=== PATIENT | female | born 1940 | race Caucasian/White ===

== ENCOUNTER 2017-04-23 09:15 | Inpatient (IN) | payer OTHER ==
[2017-04-22 10:33] VITALS: BMI 37.5
[2017-04-23] MEDS ORDERED: ceFAZolin SODIUM 1 GM VIAL ONE (10:27)
[2017-04-23] MEDS ORDERED: HEPARIN NA (PORCINE) 5,000 UNITS/ML 1ML VIAL ONE (10:28)
[2017-04-23] MEDS ORDERED: ROCURONIUM BROMIDE 50 MG/5 ML VIAL ONE (12:11)
[2017-04-23] MEDS ORDERED: fentaNYL CITRATE 250 MCG/5 ML VIAL ONE (12:11)
[2017-04-23] MEDS ORDERED: MIDAZOLAM HCL 2 MG/2 ML SINGLE DOSE VIAL ONE (12:11)
[2017-04-23] MEDS ORDERED: PROPOFOL 20 ML ONE (12:11)
[2017-04-23] MEDS ORDERED: LIDOCAINE HCL 1%, 10 MG/ML (20ML VIAL) ONE (12:47)
[2017-04-23] MEDS ORDERED: BUPIVACAINE HCL/PF 0.5% (5MG/ML) 10 ML VIAL ONE (12:48)
[2017-04-23] MEDS ORDERED: ePHEDrine SULFATE 50 MG/1 ML AMPULE ONE (13:15)
[2017-04-23] MEDS ORDERED: ceFAZolin SODIUM 1 GM VIAL IVPB ONE (13:15)
[2017-04-23] MEDS ORDERED: DEXAMETHASONE SOD PHOSPHATE 4 MG/1 ML VIAL ONE (13:18)
[2017-04-23] MEDS ORDERED: BUPIVACAINE HCL/PF 0.5% (5MG/ML) 10 ML VIAL IJ ONE (15:13)
[2017-04-23] MEDS ORDERED: LIDOCAINE HCL 1%, 10 MG/ML (20ML VIAL) INF ONE (15:13)
[2017-04-23] MEDS ORDERED: ONDANSETRON 4 MG/2 ML VIAL IVPUSH PRN ×2 (15:41)
[2017-04-23] MEDS ORDERED: HYDROmorphone *PCA* 10MG/50ML DISP.SYRIN PCA ONE (15:44)
--- NOTE | 2017-04-23 15:47 | OP ---
Operative Note - Note: Operative Date: 04/23/17 Pre-Operative Diagnosis: right lung mass Operation: robotic right middle lobe wedge resection, apical rul wedge resection Findings: rml lesion caseating granuloma Post-Operative Diagnosis: Other (caseating granuloma) Surgeon: Scot Jiménez Concreting Supervisor: Valdemar Moon Anesthesia: General Specimens Removed: portion rml, rul Estimated Blood Loss (mls): 75 Drains & Tubes with Location: chest tube Operative Report Dictated: No
[2017-04-23] MEDS: HYDROmorphone *PCA* 10MG/50ML DISP.SYRIN PCA SCH (16:05)
--- NOTE | 2017-04-23 16:06 | CONSULT ---
Consult Consult Specialty:: medicine Referred by:: dr Chavis Reason for Consultation:: s/p RML wedge resection, h/o HTN ASHD OA DJD - History of Present Illness Chief Complaint: s/p RML wedge resection for lung mass History of Present Illness: 76 y/o F with PMH HTN, depression, GERD, thyroid nodules x 2, arthritis, degenerative disc dz, former smoker, who presents to ICU s/p robotic right middle lobe wedge resection, apical rul wedge resection for R lung mass. Surgery done by . PMH: HTN, depression, GERD, thyroid nodules x2, arthritis, degenerative disc dz , scoliosis PsxH: R carpal tunnel release, R trigger finger, L knee surgery, R breast- cyst removal x2 meds: as in chart allergies: NKDA, NKA FH: mother: ovarian CA, father: alcoholic SH: former smoker, quit ~20 yrs ago pt seen in postop s/p dilaudid for pain, awake alert NAD but sleepy chart, meds, tests, consults reviewed - History Source History Provided By: Patient, Medical Record Limitations to Obtaining History: Clinical Condition - Past Medical History Cardio/Vascular: Yes: HTN, Hyperlipdemia Pulmonary: Yes: COPD Musculoskeletal: Yes: Chronic low back pain, Osteoarthritis - Alcohol/Substance Use Hx Alcohol Use: No History of Substance Use: reports: None - Smoking History Smoking history: Former smoker Have you smoked in the past 12 months: No Aproximately how many cigarettes per day: 0 If you are a former smoker, when did you quit?: 23YRS AGO - Social History Usual Living Arrangement: Alone ADL: Independent Occupation: retired Place of : [facility] History of Recent Travel: No Home Medications - Allergies Allergies/Adverse Reactions: Allergies Allergy/AdvReac Type Severity Reaction Status Date / Time No Known Allergies Allergy Verified 04/22/17 10:42 - Home Medications Home Medications: Ambulatory Orders Alprazolam [Xanax] 0.25 mg PO DAILY 04/22/17 Amlodipine Besylate 10 mg PO DAILY 04/22/17 Ascorbate Calcium [Vitamin C] 500 mg PO DAILY 04/22/17 Atenolol [Tenormin -] 100 mg PO DAILY 04/22/17 Multivitamin [One Daily] 1 each PO DAILY 04/22/17 Naproxen Sodium [Aleve] 220 mg PO PRN PRN 04/22/17 Omeprazole [Prilosec (RX)] 40 mg PO DAILY 04/22/17 Pravastatin Sodium [Pravachol -] 80 mg PO DAILY 04/23/17 Sertraline HCl [Zoloft -] 25 mg PO DAILY 04/23/17 Family Disease History - Family Disease History Family History: Unremarkable Review of Systems - Review of Systems Constitutional: denies: Chills, Fever, Lethargy HENT: denies: Epistaxis Neck: denies: Lumps, Stiffness Cardiovascular: reports: Chest Pain (at the site of surgery). denies: Edema, Shortness of Breath Respiratory: denies: Cough, SOB Gastrointestinal: denies: Constipation, Diarrhea, Vomiting Genitourinary: denies: Hematuria Musculoskeletal: reports: Back Pain (chronic) Integumentary: denies: Rash, Wound Neurological: denies: Seizure, Syncope Hematology/Lymphatic: denies: Excessive Bleeding Psychiatric: denies: Suicidal Physical Exam Vital Signs: Vital Signs Temperature 98.2 F 04/23/17 10:58 Pulse Rate 69 04/23/17 10:58 Respiratory Rate 18 04/23/17 10:58 Blood Pressure 182/80 04/23/17 10:58 O2 Sat by Pulse Oximetry (%) 97 04/23/17 10:54 Constitutional: Yes: No Distress, Calm Eyes: Yes: Conjunctiva Clear HENT: Yes: Atraumatic Neck: Yes: Supple Cardiovascular: Yes: Regular Rate and Rhythm Respiratory: Yes: CTA Bilaterally, Other (R chest tube in with some bloody drainage) Gastrointestinal: Yes: Soft. No: Tenderness Renal/: No: Hematuria Musculoskeletal: No: Joint Stiffness, Joint Swelling Extremities: No: Cold, Cool, Cyanosis Edema: No Integumentary: No: Rash, Venous Stasis Changes Neurological: Yes: Alert ...Motor Strength: WNL (moves U/LE bilat) Psychiatric: Yes: Alert. No: Agitated Imaging - Results Chest X-ray: Report Reviewed Other: Report Reviewed Assessment/Plan 76 y/o F with PMH HTN, depression, GERD, thyroid nodules x 2, arthritis, degenerative disc dz, former smoker, s/p robotic right middle lobe wedge resection, apical rul wedge resection for R lung mass. Surgery done by Dr. Chavis PMH: HTN, depression, GERD, thyroid nodules x2, arthritis, degenerative disc dz , scoliosis PsxH: R carpal tunnel release, R trigger finger, L knee surgery, R breast- cyst removal x2 continue meds as ordered pain meds prn CT surgery f/u; T chest tube drainage f/u labs and CXR falls DVT PFX d/w pt and staff t time 75 min
[2017-04-23] MEDS: HYDROmorphone HCL CARPU-JECT 1 MG/1 ML DISP.SYRIN IVPUSH PRN ×2 (16:25→16:35)
[2017-04-23] MEDS ORDERED: HYDROmorphone HCL CARPU-JECT 2 MG/1 ML DISP.SYRIN ONE (16:25)
[2017-04-23] MEDS: METOPROLOL TARTRATE 5 MG/5 ML VIAL IVPUSH SCH ×3 (17:00→21:39)
[2017-04-23] MEDS ORDERED: METOPROLOL TARTRATE 5 MG/5 ML VIAL ONE (17:03)
[2017-04-23] MEDS: LACTATED RINGERS SOLUTION 1,000 ML IV SCH ×2 (17:17→18:15)
--- NOTE | 2017-04-23 18:49 | PN ---
Progress Note (short form) - Note Progress Note: 76 y/o F with PMH HTN, depression, GERD, thyroid nodules x 2, arthritis, degenerative disc dz, former smoker, who presents to ICU s/p robotic right middle lobe wedge resection, apical rul wedge resection for R lung mass. Today is PO Day 0. Surgery done by Dr. oMon. PMH: HTN, depression, GERD, thyroid nodules x2, arthritis, degenerative disc dz , scoliosis PsxH: R carpal tunnel release, R trigger finger, L knee surgery, R breast- cyst removal x2 meds: as in chart allergies: NKDA, NKA FH: mother: ovarian CA, father: alcoholic SH: former smoker, quit ~20 yrs ago s/p robotic right middle lobe wedge resection, apical rul wedge resection for R lung mass PO Day 0 -R sided chest tube, check drainage- no suction, only gravity -On dilaudid COIN MACHINE SERVICER REPAIRER for pain -Zofran 4mg IVP q6h PRN for nausea HTN -Currently 168/80, most likely 2/2 pain -Lopressor 5mg IVP q6H IV Depression -Sertraline 25mg PO qd to be restarted tomorrow GERD -Omeprazole 40mg PO qd DVT prophylaxis -SCD's, ALBERTO's F/E/N IV LR 75 cc/hr Will monitor electrolytes Clear liquid diet Disposition Continued ICU monitoring
--- NOTE | 2017-04-23 21:18 | CONSULT ---
Consult Consult Specialty:: Pulmonary Critical Care Reason for Consultation:: s/p robotic R middle lobe wedge resection and apical RUL wedge resection - History of Present Illness History of Present Illness: 76 yo female with h/o HTN, depression, GERD, thyroid nodules, former smoker who is admitted to the ICU after a robotic right middle lobe wedge resection, apical RUL wedge resection. Admitted for post op monitoring. Active Medications Chlorhexidine Gluconate (Hibiclens For Decolonization -) 1 applic TP HS BERTA Heparin Sodium (Porcine) (Heparin -) 5,000 unit SQ BID BERTA Hydromorphone HCl (Dilaudid City Recorder -) 0 mg CREDIT CONTROL ASSISTANT CREDIT CONTROL ASSISTANT BERTA PRN Reason: Protocol Stop: 04/30/17 15:42 Last Admin: 04/23/17 16:05 Dose: 10 mg Lactated Ringer's (Lactated Ringers Solution) 1,000 mls @ 75 mls/hr IV ASDIR BERTA Last Admin: 04/23/17 18:15 Dose: Not Given Metoprolol Tartrate (Lopressor Injection -) 5 mg IVPUSH Q6H-IV BERTA Last Admin: 04/23/17 18:15 Dose: Not Given Mupirocin (Bactroban Ointment (For Decolonization) -) 1 applic NS BID [facility] Stop: 04/28/17 21:59 Non-Formulary Medication (Omeprazole Pediatric Solution) 40 mg PO DAILY [facility] Ondansetron HCl (Zofran Injection) 4 mg IVPUSH Q6H PRN PRN Reason: NAUSEA AND/OR VOMITING Sertraline HCl (Zoloft -) 25 mg PO DAILY [facility] - Alcohol/Substance Use Hx Alcohol Use: No - Smoking History Smoking history: Former smoker Have you smoked in the past 12 months: No Aproximately how many cigarettes per day: 0 If you are a former smoker, when did you quit?: 23YRS AGO Home Medications - Allergies Allergies/Adverse Reactions: Allergies Allergy/AdvReac Type Severity Reaction Status Date / Time No Known Allergies Allergy Verified 04/22/17 10:42 - Home Medications Home Medications: Ambulatory Orders Alprazolam [Xanax] 0.25 mg PO DAILY 04/22/17 Amlodipine Besylate 10 mg PO DAILY 04/22/17 Ascorbate Calcium [Vitamin C] 500 mg PO DAILY 04/22/17 Atenolol [Tenormin -] 100 mg PO DAILY 04/22/17 Multivitamin [One Daily] 1 each PO DAILY 04/22/17 Naproxen Sodium [Aleve] 220 mg PO PRN PRN 04/22/17 Omeprazole [Prilosec (RX)] 40 mg PO DAILY 04/22/17 Pravastatin Sodium [Pravachol -] 80 mg PO DAILY 04/23/17 Sertraline HCl [Zoloft -] 25 mg PO DAILY 04/23/17 Physical Exam Vital Signs: Vital Signs Temperature 98.1 F 04/23/17 18:15 Pulse Rate 76 04/23/17 20:05 Respiratory Rate 18 04/23/17 20:05 Blood Pressure 149/80 04/23/17 20:05 O2 Sat by Pulse Oximetry (%) 98 04/23/17 20:36 Constitutional: Yes: Well Nourished, No Distress Cardiovascular: Yes: Regular Rate and Rhythm Respiratory: Yes: CTA Bilaterally, Other (R chest tube with dressing intact, to gravity) Gastrointestinal: Yes: Soft Extremities: Yes: WNL Edema: No Neurological: Yes: WNL Assessment/Plan Robotic R middle lobe wedge resection and apical RUL wedge resection Hypertension -pain management with dilaudid CREDIT CONTROL ASSISTANT -antiemetics prn -chest tube to gravity -metoprolol for BP -heparin SubQ -omeprazole -clear liquid diet [facility] time: 35 mins
[2017-04-23] MEDS ORDERED: HYDROmorphone HCL CARPU-JECT 2 MG/1 ML DISP.SYRIN IVPUSH ONE (21:25)
[2017-04-24] MEDS: METOPROLOL TARTRATE 5 MG/5 ML VIAL IVPUSH SCH (03:34)
[2017-04-24 06:18] LABS: MCH 30.5 pg (25.7-33.7); MEAN CELL VOLUME 89.8 fl (80-96); MEAN PLT VOLUME 8.1 fl (7.5-11.1); PLATELET COUNT 280 K/MM3 (134-434); RDW 13.4 % (11.6-15.6); WHITE BLOOD COUNT 10.1 K/mm3 (4.0-10.0)
[2017-04-24] MEDS: LACTATED RINGERS SOLUTION 1,000 ML IV SCH ×2 (06:47→23:17)
[2017-04-24 06:53] LABS: ALBUMIN 3.4 g/dl (3.4-5.0); ANION GAP 6 (8-16); CALCIUM 9.1 mg/dL (8.5-10.1); CO2 32 mmol/L (21-32); GLUCOSE,RANDOM 112 mg/dL (74-106)
[2017-04-24 06:58] LABS: ALK PHOS 73 U/L (45-117); BILIRUBIN,TOTAL 0.4 mg/dL (0.2-1.0); CREATININE 0.7 mg/dL (0.55-1.02); SGOT/AST 29 U/L (15-37); SGPT/ALT 29 U/L (12-78); TOT PROT 6.6 g/dl (6.4-8.2)
--- NOTE | 2017-04-24 07:58 | OP ---
DATE OF OPERATION: 04/23/2017 SURGEON: Scot Jiménez MD HANDLE AND VENT MACHINE OPERATOR: Valdemar Moon MD PREOPERATIVE DIAGNOSIS: Right upper and right middle lobe lung nodules. POSTOPERATIVE DIAGNOSIS: Right upper and right middle lobe lung nodules and bulla. PROCEDURE PERFORMED: Flexible bronchoscopy, robotic-assisted thoracic surgery, right middle lobe and right upper lobe wedge resection, pneumolysis, and bullectomy. ANESTHESIA: General endotracheal anesthesia/double lumen and intercostal nerve block. INTRAVENOUS FLUIDS: 750 mL of normal saline. URINE OUTPUT: 200 mL. ESTIMATED BLOOD LOSS: 5 mL. COMPLICATIONS: None. SPECIMENS: Right upper lobe and right middle lobe lung nodules. INDICATIONS: The patient is a 76-year-old female with a history of chronic tobacco use, who has been followed by primary medical doctor for lung nodules. The patient's recent CT chest showed increased size of lung nodule. Subsequently, the patient obtained a PET/CT scan, which showed hypermetabolic activity in the lung nodules. The patient is undergoing the aforementioned procedure for definitive surgical management. The risks, benefits, alternatives and potential complications including but not limited to infection, bleeding, recurrence of disease, injury to other organs, pneumothorax, prolonged air leak, sepsis, empyema, chronic pain, nerve paresthesia, cardiac events requiring vasopressors, renal failure requiring hemodialysis, respiratory failure, ventilatory support and were discussed with the patient in extensive detail and she agreed to proceed with surgical intervention. DESCRIPTION OF PROCEDURE: The patient was brought to the operating room and placed supine on the operating room table. An intravenous line was obtained per Anesthesia. The patient was induced with general endotracheal anesthesia. A single-lung ventilation was achieved with a double-lumen endotracheal tube. A flexible bronchoscopy was performed. The main zachary, right mainstem bronchus, right upper lobe, bronchus intermedius, right middle lobe, right lower lobe, segmental and subsegmental airways were patent with no endobronchial lesions or mucus plugs. The left mainstem bronchus, left upper lobe, lingula, left lower lobe, segmental and subsegmental airways were patent with no endobronchial lesions or mucus plugs. Next, the patient was placed in the left-sided decubitus position with an axillary roll. The patient's right chest was prepped and draped in the standard surgical fashion. Using a #15 blade, an 8-mm skin incision was made in the 7th intercostal space. Upon entering the right thoracic cavity, the patient was found to have a bullous disease and right middle lobe lung nodule which was adhered to the pericardium. Additional skin incisions were made for robotic instruments. The right robotic arm was situated with the bipolar dissector and the left robotic arm was situated with Cadiere grasper. A complete pneumolysis was performed in order to fully mobilize the right middle lobe. Using multiple robotic Endo-staplers, right middle lobe wedge resection and bullectomy was performed with no complication. The frozen section of the right middle lobe lung nodule showed caseating granuloma with no evidence of malignancy. Additional specimen was sent for culture workup. Next attention was turned to the right upper lobe lung nodule. In a similar manner, multiple robotic Endo-staplers were used to perform the right upper lobe wedge resection. The thoracic cavity was re-explored to achieve complete hemostasis at the end of the case. A #24-English chest tube was placed for postoperative drainage. The patient was given an intercostal nerve block prior to skin closure. All incisions were closed in layers with 2-0 and 3-0 Vicryl and 4-0 Monocryl stitches. A sterile dressing was placed over the incision and chest tube site. The patient tolerated the procedure well with no complication. The patient was awakened, extubated and transported to the recovery room in stable condition. I, Dr. Scot Jiménez, was present for the entire surgical procedure. Geno [id number] MTDD
--- NOTE | 2017-04-24 09:26 | PN ---
Progress Note (short form) - Note Progress Note: Seen and examined. no major event or c/o. no sob, skelton, cough, hemoptysis. afeb. rrr. cta b/l. ct intact, no air leak. serosang. +bs, soft, nt, nd. no c/ c/e. a&o x3. CBC, BMP 04/24/17 06:00 04/24/17 06:00 Intake & Output 04/21/17 04/22/17 04/23/17 04/24/17 23:59 23:59 23:59 23:59 Intake Total 2225 900 Output Total 1177 629 Balance 1048 271 Weight 92.986 kg 89.176 kg Vital Signs (72 hours) 04/23/17 04/23/17 04/23/17 10:54 10:58 15:29 Temperature 98.2 F 97.9 F Pulse Rate 69 79 Respiratory 18 16 Rate Blood Pressure 182/80 139/72 O2 Sat by Pulse 97 98 Oximetry (%) 04/23/17 04/23/17 04/23/17 15:45 16:00 16:05 Temperature Pulse Rate 79 79 78 Respiratory 18 18 18 Rate Blood Pressure 160/66 158/76 158/68 O2 Sat by Pulse 99 98 Oximetry (%) 04/23/17 04/23/17 04/23/17 16:15 16:30 16:35 Temperature Pulse Rate 78 74 76 Respiratory 18 18 18 Rate Blood Pressure 158/68 155/66 150/68 O2 Sat by Pulse 98 95 Oximetry (%) 04/23/17 04/23/17 04/23/17 16:45 17:00 17:05 Temperature Pulse Rate 76 75 80 Respiratory 18 18 18 Rate Blood Pressure 150/68 160/67 160/80 O2 Sat by Pulse 95 99 Oximetry (%) 04/23/17 04/23/17 04/23/17 17:15 17:30 17:45 Temperature 98.1 F Pulse Rate 80 79 78 Respiratory 18 18 18 Rate Blood Pressure 160/80 163/71 162/78 O2 Sat by Pulse 95 97 96 Oximetry (%) 04/23/17 04/23/17 04/23/17 18:00 18:05 18:15 Temperature 98.1 F 98.1 F Pulse Rate 82 80 79 Respiratory 18 22 14 Rate Blood Pressure 158/76 168/80 168/80 O2 Sat by Pulse 96 96 Oximetry (%) 04/23/17 04/23/17 04/23/17 20:00 20:05 20:36 Temperature Pulse Rate 76 76 Respiratory 20 18 Rate Blood Pressure 149/80 149/80 O2 Sat by Pulse 98 Oximetry (%) 04/23/17 04/23/17 04/23/17 21:30 21:39 22:00 Temperature 98.4 F Pulse Rate 82 85 78 Respiratory 18 14 Rate Blood Pressure 154/74 154/74 157/79 O2 Sat by Pulse Oximetry (%) 04/23/17 04/24/17 04/24/17 22:05 00:00 00:05 Temperature Pulse Rate 78 77 75 Respiratory 14 14 18 Rate Blood Pressure 154/70 137/68 137/68 O2 Sat by Pulse Oximetry (%) 04/24/17 04/24/17 04/24/17 02:00 02:05 03:34 Temperature 98.2 F Pulse Rate 76 76 Respiratory 16 16 Rate Blood Pressure 142/76 142/76 120/53 O2 Sat by Pulse Oximetry (%) 04/24/17 04/24/17 04/24/17 04:00 04:05 06:00 Temperature 98.0 F Pulse Rate 71 71 80 Respiratory 14 18 18 Rate Blood Pressure 113/50 113/50 146/73 O2 Sat by Pulse Oximetry (%) 04/24/17 04/24/17 06:05 08:00 Temperature Pulse Rate 70 84 Respiratory 18 18 Rate Blood Pressure 146/70 169/81 O2 Sat by Pulse Oximetry (%) Vital Signs Temp 98.0 F 04/24/17 04:00 Pulse 84 04/24/17 08:00 Resp 18 04/24/17 08:00 BP 169/81 04/24/17 08:00 Pulse Ox 98 04/23/17 20:36 Intake & Output 04/23/17 04/23/17 04/24/17 11:59 23:59 11:59 Intake Total 2225 900 Output Total 1177 629 Balance 1048 271 Weight 89.176 kg Intake: IV 2075 900 Lactated Ringers Solution 75 900 1,000 ml @ 75 mls/hr IV ASDIR BERTA Rx#:[id number] Oral 150 Output: Chest Tube Drainage 22 29 Right Anterior Chest 29 Urine 1150 600 Ca 600 Void 400 Estimated Blood Loss 5 Other: Voiding Method Indwelling Catheter Weight Measurement Method [facility] a/p 76 yo, f, s/p robotic-assisted rul/rml wedge resection, pneumolysis, and bullectomy. stable clinically. 1. cont excellent icu care 2. ct to ws 3. oob amb w pt, aggressive pulm toilet, chest pt, is x10/hr 4. cxr qd 5. d/w drs. schwartz.
[2017-04-24] MEDS ORDERED: amLODIPine BESYLATE 10 MG TABLET (FP) PO SCH (10:00)
[2017-04-24] MEDS ORDERED: PATIENT'S OWN MEDICATION (NON-FORMULARY) (Atenolol [Tenormin -] 100 MG) PO SCH (10:00)
--- NOTE | 2017-04-24 10:07 | PN ---
Progress Note (short form) - Note Progress Note: Anesthesia POD#1 Right Robotic VATS wedge resection under GA and Dlaudid CONFIGURATION MANAGEMENT MANAGER VSS, tolerating well,feels pain on movement.No N/V. A/P Continue CONFIGURATION MANAGEMENT MANAGER for today. Will reasess tomorrow. Anastasia martinez MD.
[2017-04-24] MEDS: MULTIVITAMINS (DAILY MVI) TABLET (FP) PO SCH (10:30)
[2017-04-24] MEDS: HEPARIN NA (PORCINE) 5,000 UNITS/ML 1ML VIAL SQ SCH ×2 (10:30→23:21)
[2017-04-24] MEDS: ALPRAZolam 0.25 MG TABLET PO SCH (10:31)
[2017-04-24] MEDS: SERTRALINE HCL 25 MG TABLET (FP) PO SCH (10:31)
[2017-04-24] MEDS: amLODIPine BESYLATE 10 MG TABLET (FP) PO SCH (10:31)
[2017-04-24] MEDS: ASCORBIC ACID 500 MG TABLET (FP) PO SCH (10:31)
[2017-04-24] MEDS: PANTOPRAZOLE 40 MG TABLET (FP) PO SCH (10:31)
[2017-04-24] MEDS: ATENOLOL 50 MG TABLET (FP) PO SCH (10:31)
[2017-04-24] MEDS: MUPIROCIN 2% TOPICAL OINTMENT FOR DECOLONIZATION NS SCH ×3 (10:32→23:20)
--- NOTE | 2017-04-24 11:53 | PN ---
Progress Note, Physician Chief Complaint: PO day 1 in bed NAD in ICU; CT in events consults tests and meds reviewed with pt in good spirits no pain no SOB no bleed - Current Medication List Current Medications: Active Medications Alprazolam (Xanax -) 0.25 mg PO DAILY [facility] Last Admin: 04/24/17 10:31 Dose: 0.25 mg Amlodipine Besylate (Norvasc -) 10 mg PO DAILY [facility] Last Admin: 04/24/17 10:31 Dose: 10 mg Ascorbic Acid (Vitamin C -) 500 mg PO DAILY [facility] Last Admin: 04/24/17 10:31 Dose: 500 mg Atenolol (Tenormin -) 100 mg PO DAILY [facility] Last Admin: 04/24/17 10:31 Dose: 100 mg Atorvastatin Calcium (Lipitor -) 20 mg PO [facility] Chlorhexidine Gluconate (Hibiclens For Decolonization -) 1 applic TP HS [facility] Last Admin: 04/24/17 00:00 Dose: 1 applic Heparin Sodium (Porcine) (Heparin -) 5,000 unit SQ BID [facility] Last Admin: 04/24/17 10:30 Dose: 5,000 unit Hydromorphone HCl (Dilaudid 911 Emergency Dispatcher -) 0 mg SANITATION MANAGER SANITATION MANAGER [facility] PRN Reason: Protocol Stop: 04/30/17 15:42 Last Admin: 04/23/17 16:05 Dose: 10 mg Lactated Ringer's (Lactated Ringers Solution) 1,000 mls @ 75 mls/hr IV ASDIR [facility] Last Admin: 04/24/17 06:47 Dose: 75 mls/hr Multivitamins/Minerals/Vitamin C (Tab-A-Vit -) 1 tab PO DAILY [facility] Last Admin: 04/24/17 10:30 Dose: 1 tab Mupirocin (Bactroban Ointment (For Decolonization) -) 1 applic NS BID [facility] Stop: 04/28/17 21:59 Last Admin: 04/24/17 10:32 Dose: 1 applic Ondansetron HCl (Zofran Injection) 4 mg IVPUSH Q6H PRN PRN Reason: NAUSEA AND/OR VOMITING Pantoprazole Sodium (Protonix -) 40 mg PO DAILY [facility] Last Admin: 04/24/17 10:31 Dose: 40 mg Sertraline HCl (Zoloft -) 25 mg PO DAILY [facility] Last Admin: 04/24/17 10:31 Dose: 25 mg - Objective Vital Signs: Vital Signs Temperature 98.1 F 04/24/17 10:00 Pulse Rate 84 04/24/17 10:05 Respiratory Rate 15 04/24/17 10:05 Blood Pressure 143/58 04/24/17 10:05 O2 Sat by Pulse Oximetry (%) 98 04/24/17 09:00 Constitutional: Yes: No Distress, Calm Eyes: Yes: Conjunctiva Clear HENT: Yes: Atraumatic Neck: Yes: Supple Cardiovascular: Yes: Regular Rate and Rhythm Respiratory: Yes: CTA Bilaterally Gastrointestinal: Yes: Soft. No: Distention, Tenderness Genitourinary: No: CVA Tenderness - Left, CVA Tenderness - Right Musculoskeletal: No: Joint Stiffness, Joint Swelling Extremities: No: Cold, Cool, Cyanosis Edema: No Integumentary: No: Rash, Venous Stasis Changes Neurological: Yes: WNL, Alert, Oriented ...Motor Strength: WNL Psychiatric: Yes: WNL, Alert, Oriented. No: Agitated, Suicidal Ideation Labs: CBC, BMP 04/24/17 06:00 04/24/17 06:00 - ....Imaging Other: Report Reviewed Assessment/Plan 76 y/o F with PMH HTN, depression, GERD, thyroid nodules x 2, arthritis, degenerative disc dz, former smoker, s/p robotic right middle lobe wedge resection, apical rul wedge resection for R lung mass. Surgery done by Dr. Chavis PMH: HTN, depression, GERD, thyroid nodules x2, arthritis, degenerative disc dz , scoliosis PsxH: R carpal tunnel release, R trigger finger, L knee surgery, R breast- cyst removal x2 continue meds as ordered pain meds prn CT surgery f/u; T chest tube drainage f/u labs and CXR falls DVT PFX d/w pt and staff t time 40 min
--- NOTE | 2017-04-24 12:50 | PN ---
Teaching Attending Note Name of Resident: Millie Miguel ATTENDING PHYSICIAN STATEMENT I saw and evaluated the patient. I reviewed the resident's note and discussed the case with the resident. I agree with the resident's findings and plan as documented. SUBJECTIVE: Pt seen and examined in the ICU. Pain adequately controlled with current dilaudid CENTRALIZED TRAFFIC CONTROL OPERATOR. Denies shortness of breath. No fevers or chills. Chest tube to water seal. OBJECTIVE: Last Vital Signs Temp Pulse Resp BP Pulse Ox 98.1 F 88 18 129/78 98 04/24/17 10:00 04/24/17 12:00 04/24/17 12:00 04/24/17 12:00 04/24/17 09:00 Intake & Output 04/21/17 04/22/17 04/23/17 04/24/17 23:59 23:59 23:59 23:59 Intake Total 2225 900 Output Total 1177 629 Balance 1048 271 Weight 205 lb 196 lb 9.6 oz Gen: NAD at rest Heart: RRR Lung: decreased breath sounds at the bases Abd: soft, nontender Ext: no edema Chest tube: no air leak, minimal drainage CBC, BMP 04/24/17 06:00 04/24/17 06:00 Active Medications Alprazolam (Xanax -) 0.25 mg PO DAILY [facility] Last Admin: 04/24/17 10:31 Dose: 0.25 mg Amlodipine Besylate (Norvasc -) 10 mg PO DAILY [facility] Last Admin: 04/24/17 10:31 Dose: 10 mg Ascorbic Acid (Vitamin C -) 500 mg PO DAILY [facility] Last Admin: 04/24/17 10:31 Dose: 500 mg Atenolol (Tenormin -) 100 mg PO DAILY [facility] Last Admin: 04/24/17 10:31 Dose: 100 mg Atorvastatin Calcium (Lipitor -) 20 mg PO [facility] Chlorhexidine Gluconate (Hibiclens For Decolonization -) 1 applic TP HS [facility] Last Admin: 04/24/17 00:00 Dose: 1 applic Heparin Sodium (Porcine) (Heparin -) 5,000 unit SQ BID [facility] Last Admin: 04/24/17 10:30 Dose: 5,000 unit Hydromorphone HCl (Dilaudid Drier Transfer Car Operator -) 0 mg CENTRALIZED TRAFFIC CONTROL OPERATOR CENTRALIZED TRAFFIC CONTROL OPERATOR [facility] PRN Reason: Protocol Stop: 04/30/17 15:42 Last Admin: 04/23/17 16:05 Dose: 10 mg Lactated Ringer's (Lactated Ringers Solution) 1,000 mls @ 75 mls/hr IV ASDIR [facility] Last Admin: 04/24/17 06:47 Dose: 75 mls/hr Multivitamins/Minerals/Vitamin C (Tab-A-Vit -) 1 tab PO DAILY [facility] Last Admin: 04/24/17 10:30 Dose: 1 tab Mupirocin (Bactroban Ointment (For Decolonization) -) 1 applic NS BID [facility] Stop: 04/28/17 21:59 Last Admin: 04/24/17 10:32 Dose: 1 applic Ondansetron HCl (Zofran Injection) 4 mg IVPUSH Q6H PRN PRN Reason: NAUSEA AND/OR VOMITING Pantoprazole Sodium (Protonix -) 40 mg PO DAILY [facility] Last Admin: 04/24/17 10:31 Dose: 40 mg Sertraline HCl (Zoloft -) 25 mg PO DAILY [facility] Last Admin: 04/24/17 10:31 Dose: 25 mg ASSESSMENT AND PLAN: Lung Nodules s/p Robotic RML/RUL wedge resections HTN Hypercholesterolemia Depression - pain control - incentive spirometry - d/c best - PO as tolerated - d/c IVF if tolerating PO - f/u final pathology - DVT prophylaxis
--- NOTE | 2017-04-24 13:12 | PN ---
Physical Exam: SUBJECTIVE: Patient seen and examined Patient resting in bed NAD. Afebrile and hemodynamically stable. No acute events overnight. R chest tube draining 55 cc serosanguineous fluid, no air leak. pain well controlled with FISHERIES TECHNICAL OFFICER pump. Endorses R sided rib pain and R sided pleuritic pain. Denies sob, cough, f/c, cp, palpitations, abd pain, n/v/d. OBJECTIVE: Vital Signs Period Temp Pulse Resp BP Sys/Jennings Pulse Ox Last 24 Hr 97.9 F-98.4 F 70-88 13-22 113-169/50-81 95-99 GENERAL: The patient is awake, alert, and fully oriented, in no acute distress. HEAD: Normal with no signs of trauma. EYES: PERRL, extraocular movements intact, sclera anicteric, conjunctiva clear. No ptosis. ENT: moist mucous membranes. NECK: supple. LUNGS: R middle lobe crackles HEART: Regular rate and rhythm, S1, S2 Chest wall: R chest tube in place, dressing with sero sanguineous staining. no edema or redness. ABDOMEN: Soft, nontender, nondistended, normoactive bowel sounds, no guarding, no rebound EXTREMITIES: 2+ pulses, warm, well-perfused, no edema. NEUROLOGICAL: Cranial nerves II through XII grossly intact. Normal speech, gait not observed. PSYCH: Normal mood, normal affect. SKIN: Warm, dry Laboratory Results - last 24 hr 04/23/17 04/23/17 04/24/17 10:00 10:00 06:00 WBC 10.1 H D RBC 3.87 Hgb 11.8 Hct 34.7 MCV 89.8 MCH 30.5 MCHC 34.0 RDW 13.4 Plt Count 280 MPV 8.1 Sodium Potassium Chloride Carbon Dioxide Anion Gap BUN Creatinine Creat Clearance w eGFR Random Glucose Calcium Total Bilirubin AST ALT Alkaline Phosphatase Total Protein Albumin Blood Type Cancelled Cancelled Antibody Screen Cancelled Spec Expiration Date Cancelled 04/24/17 06:00 WBC RBC Hgb Hct MCV MCH MCHC RDW Plt Count MPV Sodium 137 Potassium 4.8 D Chloride 99 Carbon Dioxide 32 Anion Gap 6 L BUN 12 D Creatinine 0.7 Creat Clearance w eGFR > 60 Random Glucose 112 H Calcium 9.1 Total Bilirubin 0.4 D AST 29 ALT 29 Alkaline Phosphatase 73 Total Protein 6.6 Albumin 3.4 Blood Type Antibody Screen Spec Expiration Date Active Medications Generic Name Dose Route Start Last Admin Trade Name Freq PRN Reason Stop Dose Admin Alprazolam 0.25 mg 04/24/17 10:00 04/24/17 10:31 Xanax - PO 0.25 mg DAILY BERTA Administration Amlodipine Besylate 10 mg 04/24/17 10:00 04/24/17 10:31 Norvasc - PO 10 mg DAILY BERTA Administration Ascorbic Acid 500 mg 04/24/17 10:00 04/24/17 10:31 Vitamin C - PO 500 mg DAILY BERTA Administration Atenolol 100 mg 04/24/17 10:00 04/24/17 10:31 Tenormin - PO 100 mg DAILY BERTA Administration Atorvastatin Calcium 20 mg 04/24/17 22:00 Lipitor - PO HS BERTA Chlorhexidine Gluconate 1 applic 04/23/17 22:00 04/24/17 00:00 Hibiclens For Decolonization - TP 1 applic HS BERTA Administration Heparin Sodium (Porcine) 5,000 unit 04/24/17 10:00 04/24/17 10:30 Heparin - SQ 5,000 unit BID BERTA Administration Hydromorphone HCl 0 mg 04/23/17 15:45 04/23/17 16:05 Dilaudid Paste Mixer - FISH[employer] TECHNICAL OFFICER 04/30/17 15:42 10 mg [employer] OFFICER BERTA Administration Protocol Lactated Ringer's 1,000 mls @ 75 mls/hr 04/23/17 15:45 04/24/17 06:47 Lactated Ringers Solution IV 75 mls/hr ASDIR BERTA Administration Multivitamins/Minerals/Vitamin C 1 tab 04/24/17 10:00 04/24/17 10:30 Tab-A-Vit - PO 1 tab DAILY BERTA Administration Mupirocin 1 applic 04/23/17 22:00 04/24/17 10:32 Bactroban Ointment (For Decolonization) - NS 04/28/17 21:59 1 applic BID BERTA Administration Ondansetron HCl 4 mg 04/23/17 15:41 Zofran Injection IVPUSH Q6H PRN NAUSEA AND/OR VOMITING Pantoprazole Sodium 40 mg 04/24/17 10:00 04/24/17 10:31 Protonix - PO 40 mg DAILY BERTA Administration Sertraline HCl 25 mg 04/24/17 10:00 11/29/17 10:31 Zoloft - PO 25 mg DAILY BERTA Administration ASSESSMENT/PLAN: This is a 76 yo F with PMH of lung nodules, past smoker, HTN, depression, GERD, thyroid nodules, admitted to the ICU s/p robotic right middle lobe wedge resection, apical RUL wedge resection. Neuro -aaox3 CV *HTN *HLD -lipitor 20, norvasc 10 Pulm: POD1 s/p robotic right middle lobe wedge resection, apical RUL wedge resection -frozen sections so far negative for oncology; f/u final path report -R chest tube in place to gravity with minimal sero sanguineous output and no air leak; pull tomorrow -CXR R apical small pneumo persists -pain management with collections manager pump -remove best FEN: LR @ 75 lytes stable NA controlled diet hep, diet Dispo: ICU Problem List - Problems (1) Lung nodule Code(s): R91.1 - SOLITARY PULMONARY NODULE (3) HTN (hypertension) Code(s): I10 - ESSENTIAL (PRIMARY) HYPERTENSION (4) HLD (hyperlipidemia) Code(s): E78.5 - HYPERLIPIDEMIA, UNSPECIFIED Visit type - Emergency Visit Emergency Visit: Yes ED Registration Date: 04/23/17 Care time: The patient presented to the Emergency Department on the above date and was hospitalized for further evaluation of their emergent condition. - New Patient This patient is new to me today: Yes Date on this admission: 04/24/17 - Critical Care Critical Care patient: Yes Total Critical Care Time (in minutes): 35 Critical Care Statement: The care of this patient involved high complexity decision making to prevent further life threatening deterioration of the patient 's condition and/or to evaluate & treat vital organ system(s) failure or risk of failure.
[2017-04-24] MEDS ORDERED: CALCIUM CARBONATE 650 MG TABLET PO PRN (15:16)
[2017-04-24] MEDS: ATORVASTATIN CA 20 MG TABLET (FP) PO SCH (23:21)
[2017-04-24] MEDS: CHLORHEXIDINE GLUCONATE 4% CLEANSER FOR DECOLONIZATION TP SCH ×2 (23:21)
[2017-04-25 06:30] LABS: BASOPHIL 0.4 % (0-2.0); EOSINOPHIL 1.1 % (0-4.5); MCH 30.9 pg (25.7-33.7); MCHC 34.4 g/dl (32.0-36.0); MEAN CELL VOLUME 89.9 fl (80-96); MEAN PLT VOLUME 8.3 fl (7.5-11.1); NEUTROPHILS 69.5 % (42.8-82.8); PLATELET COUNT 267 K/MM3 (134-434); RDW 13.2 % (11.6-15.6); WHITE BLOOD COUNT 8.1 K/mm3 (4.0-10.0)
[2017-04-25 06:55] LABS: ANION GAP 7 (8-16); CALCIUM 9.4 mg/dL (8.5-10.1); CO2 36 mmol/L (21-32); CREATININE 0.7 mg/dL (0.55-1.02); GLUCOSE,RANDOM 122 mg/dL (74-106); MAGNESIUM 1.4 mg/dL (1.8-2.4); PHOSPHOROUS 4.1 mg/dL (2.5-4.9)
[2017-04-25] MEDS ORDERED: ONDANSETRON 4 MG/2 ML VIAL IVPUSH ONE (07:58)
--- NOTE | 2017-04-25 08:22 | PN ---
Progress Note (short form) - Note Progress Note: seen and examined. no major event o/n. c/o mild nausea this am. no emesis. + flatus. no bm. denies f/c, sob, skelton, cough, hemoptysis, and cp. afeb. rrr. min decreased bs b/l. ct intact, no air leak, serosang. clamped ct. +bs, soft, nt, nd. no c/c/e. a&o x3. CBC, BMP 04/25/17 05:00 04/25/17 05:00 Vital Signs Temp 98.4 F 04/24/17 22:00 Pulse 81 04/25/17 06:00 Resp 16 04/25/17 06:00 BP 164/61 04/25/17 06:00 Pulse Ox 98 04/24/17 20:18 Intake & Output 04/24/17 04/24/17 04/25/17 11:59 23:59 11:59 Intake Total 900 1200 500 Output Total 629 1230 220 Balance 271 -30 280 Weight 89.176 kg 89.811 kg Intake: IV 900 1200 500 Lactated Ringers Solution 900 1200 500 1,000 ml @ 75 mls/hr IV ASDIR [facility] Rx#:[id number] Output: Chest Tube Drainage 29 55 20 Right Anterior Chest 29 55 20 Urine 600 1175 200 Ca 600 400 Void 775 200 Other: Voiding Method Indwelling Catheter Bedpan Bowel Movement No Weight Measurement Method Built in [facility] a/p 76 yo, f, rul/rml nodule, bulla. s/p robotic rul/rml wedge resection and bullectomy. stable clinically. 1. cont icu care 2. clamped right chest tube. repeat cxr. if stable, d/c ct. 3. antiemetic and bowel regimen, suppository 4. must get oob amb, aggressive pulm toilet, chest pt, is x10/hr 5. d/w b2b sales executive, icu staff internist office based only/staff, surg pa 6. wean O2 7. dc planning today vs tomorrow
[2017-04-25] MEDS ORDERED: BISACODYL 10 MG SUPP.RECT PR ONE (08:33)
[2017-04-25] MEDS ORDERED: BISACODYL 10 MG SUPP.RECT RC PRN (08:33)
[2017-04-25] MEDS ORDERED: oxyCODONE HCL 5 MG TABLET PO PRN (08:37)
[2017-04-25] MEDS: MULTIVITAMINS (DAILY MVI) TABLET (FP) PO SCH (09:38)
[2017-04-25] MEDS: DOCUSATE SODIUM 100 MG CAPSULE (FP) PO SCH ×3 (09:38→22:17)
[2017-04-25] MEDS: PANTOPRAZOLE 40 MG TABLET (FP) PO SCH (09:39)
[2017-04-25] MEDS: amLODIPine BESYLATE 10 MG TABLET (FP) PO SCH (09:39)
[2017-04-25] MEDS: ATENOLOL 50 MG TABLET (FP) PO SCH (09:39)
[2017-04-25] MEDS: SERTRALINE HCL 25 MG TABLET (FP) PO SCH (09:40)
[2017-04-25] MEDS: ASCORBIC ACID 500 MG TABLET (FP) PO SCH (09:40)
[2017-04-25] MEDS: HEPARIN NA (PORCINE) 5,000 UNITS/ML 1ML VIAL SQ SCH ×2 (09:40→22:17)
[2017-04-25] MEDS: MUPIROCIN 2% TOPICAL OINTMENT FOR DECOLONIZATION NS SCH ×2 (09:47→22:17)
[2017-04-25] MEDS: ALPRAZolam 0.25 MG TABLET PO SCH (09:47)
--- NOTE | 2017-04-25 10:51 | PN ---
Progress Note (short form) - Note Progress Note: PAIN MANAGEMENT DEPT OF ANESTHESIA POST OP DAY 2, SP VATS LOBECTOMY CHEST TUBE IN PLACE, PATIENT REPORTS PAIN BUT IT IS WELL CONTROLLED WITH COFFEE ROASTER HELPER. A/P : WILL CONTINUE THE COFFEE ROASTER HELPER UNTIL CHEST TUBE IS REMOVED. NO ADVERSE EFFECTS OF ANESTHETIC OR COFFEE ROASTER HELPER NOTED.
--- NOTE | 2017-04-25 11:44 | PN ---
Progress Note, Physician Chief Complaint: still in ICU no new c/o final path still pending - Current Medication List Current Medications: Active Medications Acetaminophen (Tylenol -) 650 mg PO Q6H PRN PRN Reason: FEVER OR PAIN Alprazolam (Xanax -) 0.25 mg PO DAILY [facility] Last Admin: 04/25/17 09:47 Dose: 0.25 mg Amlodipine Besylate (Norvasc -) 10 mg PO DAILY [facility] Last Admin: 04/25/17 09:39 Dose: 10 mg Ascorbic Acid (Vitamin C -) 500 mg PO DAILY [facility] Last Admin: 04/25/17 09:40 Dose: 500 mg Atenolol (Tenormin -) 100 mg PO DAILY [facility] Last Admin: 04/25/17 09:39 Dose: 100 mg Atorvastatin Calcium (Lipitor -) 20 mg PO HS [facility] Last Admin: 04/24/17 23:21 Dose: 20 mg Bisacodyl (Dulcolax Suppository -) 10 mg RC DAILY PRN PRN Reason: CONSTIPATION Calcium Carbonate (Calcium Carbonate -) 650 mg PO DAILY PRN PRN Reason: GAS Chlorhexidine Gluconate (Hibiclens For Decolonization -) 1 applic TP HS [facility] Last Admin: 04/24/17 23:21 Dose: 1 applic Docusate Sodium (Colace -) 100 mg PO TID [facility] Last Admin: 04/25/17 09:38 Dose: 100 mg Heparin Sodium (Porcine) (Heparin -) 5,000 unit SQ BID [facility] Last Admin: 04/25/17 09:40 Dose: 5,000 unit Multivitamins/Minerals/Vitamin C (Tab-A-Vit -) 1 tab PO DAILY [facility] Last Admin: 04/25/17 09:38 Dose: 1 tab Mupirocin (Bactroban Ointment (For Decolonization) -) 1 applic NS BID [facility] Stop: 04/28/17 21:59 Last Admin: 04/25/17 09:47 Dose: 1 applic Ondansetron HCl (Zofran Injection) 4 mg IVPUSH Q6H PRN PRN Reason: NAUSEA AND/OR VOMITING Oxycodone HCl (Roxicodone -) 5 mg PO Q6H PRN PRN Reason: PAIN LEVEL 1-5 Oxycodone HCl (Roxicodone -) 10 mg PO Q6H PRN PRN Reason: PAIN LEVEL 6-10 Pantoprazole Sodium (Protonix -) 40 mg PO DAILY [facility] Last Admin: 04/25/17 09:39 Dose: 40 mg Sertraline HCl (Zoloft -) 25 mg PO DAILY [facility] Last Admin: 04/25/17 09:40 Dose: 25 mg - Objective Vital Signs: Vital Signs Temperature 98.3 F 04/25/17 10:00 Pulse Rate 81 04/25/17 10:00 Respiratory Rate 18 04/25/17 10:00 Blood Pressure 162/60 04/25/17 10:00 O2 Sat by Pulse Oximetry (%) 98 04/24/17 20:18 Constitutional: Yes: No Distress, Calm Eyes: Yes: Conjunctiva Clear HENT: Yes: Atraumatic Neck: Yes: Supple Cardiovascular: Yes: Regular Rate and Rhythm Respiratory: Yes: CTA Bilaterally Gastrointestinal: Yes: Soft. No: Distention Genitourinary: No: CVA Tenderness - Left, CVA Tenderness - Right Musculoskeletal: No: Joint Stiffness, Joint Swelling Extremities: No: Cold, Cool Edema: No Integumentary: No: Rash, Venous Stasis Changes Neurological: Yes: WNL, Alert, Oriented ...Motor Strength: WNL Psychiatric: Yes: WNL, Alert, Oriented. No: Agitated Labs: CBC, BMP 04/25/17 05:00 04/25/17 05:00 - ....Imaging Other: Report Reviewed Assessment/Plan 76 y/o F with PMH HTN, depression, GERD, thyroid nodules x 2, arthritis, degenerative disc dz, former smoker, s/p robotic right middle lobe wedge resection, apical rul wedge resection for R lung mass. Surgery done by Dr. Chavis PMH: HTN, depression, GERD, thyroid nodules x2, arthritis, degenerative disc dz , scoliosis PsxH: R carpal tunnel release, R trigger finger, L knee surgery, R breast- cyst removal x2 continue meds as ordered pain meds prn CT surgery f/u; T chest tube drainage f/u labs and CXR falls DVT PFX path and cx pending d/w pt and staff t time 35 min
--- NOTE | 2017-04-25 12:41 | PROC ---
Procedure Note Procedure: right chest tube removed after reviewing repeat CXR today at 11:[address] had been clamped since 7 am. tube removed without difficulty. xeroform/gauze and tegaderm dressing applied. Repeat cxr for 1600 ordered for today to r/o pntx.
--- NOTE | 2017-04-25 14:31 | PN ---
Physical Exam: SUBJECTIVE: Patient seen and examined and in no acute distress. The patient is a 76 yo F with PMH of lung nodules, past smoker, HTN, depression, GERD, thyroid nodules, admitted to the ICU s/p robotic right middle lobe wedge resection, apical RUL wedge resection. Chest tube in place. CXR ordered to monitor for R apical pneumothorax. Patient' s only complaints are of pleuritic R sided CP likely 2/[address] OBJECTIVE: Vital Signs Period Temp Pulse Resp BP Sys/Jennings Pulse Ox Last 24 Hr 98.3 F-98.9 F 77-99 16-33 147-177/60-72 98 GENERAL: The patient is awake, alert, and fully oriented, in no acute distress. HEAD: Normal with no signs of trauma. EYES: PERRL, extraocular movements intact, sclera anicteric, conjunctiva clear. No ptosis. NECK: Trachea midline, full range of motion, supple. LUNGS: Breath sounds equal, clear to auscultation bilaterally, no wheezes, no crackles, no accessory muscle use. HEART: Regular rate and rhythm, S1, S2 without murmur, rub or gallop. ABDOMEN: Soft, nontender, nondistended, normoactive bowel sounds, no guarding, no rebound, no hepatosplenomegaly, no masses. EXTREMITIES: 2+ pulses, warm, well-perfused, no edema. NEUROLOGICAL: Cranial nerves II through XII grossly intact. Normal speech, gait not observed. PSYCH: Normal mood, normal affect. SKIN: Warm, dry, normal turgor, no rashes or lesions noted Laboratory Results - last 24 hr 04/25/17 04/25/17 05:00 05:00 WBC 8.1 RBC 3.60 Hgb 11.1 Hct 32.3 L MCV 89.9 MCH 30.9 MCHC 34.4 RDW 13.2 Plt Count 267 MPV 8.3 Neutrophils % 69.5 Lymphocytes % 20.1 D Monocytes % 8.9 Eosinophils % 1.1 D Basophils % 0.4 Sodium 134 L Potassium 4.2 Chloride 91 L Carbon Dioxide 36 H Anion Gap 7 L BUN 19 H D Creatinine 0.7 Random Glucose 122 H Calcium 9.4 Phosphorus 4.1 Magnesium 1.4 L Active Medications Generic Name Dose Route Start Last Admin Trade Name Freq PRN Reason Stop Dose Admin Acetaminophen 650 mg 04/25/17 08:38 Tylenol - PO Q6H PRN FEVER OR PAIN Alprazolam 0.25 mg 04/24/17 10:00 04/25/17 09:47 Xanax - PO 0.25 mg DAILY BERTA Administration Amlodipine Besylate 10 mg 04/24/17 10:00 04/25/17 09:39 Norvasc - PO 10 mg DAILY BERTA Administration Ascorbic Acid 500 mg 04/24/17 10:00 04/25/17 09:40 Vitamin C - PO 500 mg DAILY BERTA Administration Atenolol 100 mg 04/24/17 10:00 04/25/17 09:39 Tenormin - PO 100 mg DAILY BERTA Administration Atorvastatin Calcium 20 mg 04/24/17 22:00 04/24/17 23:21 Lipitor - PO 20 mg HS [facility] Administration Bisacodyl 10 mg 04/25/17 08:33 Dulcolax Suppository - RC DAILY PRN CONSTIPATION Calcium Carbonate 650 mg 04/24/17 15:16 Calcium Carbonate - PO DAILY PRN GAS Chlorhexidine Gluconate 1 applic 04/23/17 22:00 04/24/17 23:21 Hibiclens For Decolonization - TP 1 applic HS BERTA Administration Docusate Sodium 100 mg 04/25/17 08:45 04/25/17 09:38 Colace - PO 100 mg TID BERTA Administration Heparin Sodium (Porcine) 5,000 unit 04/24/17 10:00 04/25/17 09:40 Heparin - SQ 5,000 unit BID BERTA Administration Multivitamins/Minerals/Vitamin C 1 tab 04/24/17 10:00 04/25/17 09:38 Tab-A-Vit - PO 1 tab DAILY BERTA Administration Mupirocin 1 applic 04/23/17 22:00 04/25/17 09:47 Bactroban Ointment (For Decolonization) - NS 04/28/17 21:59 1 applic BID BERTA Administration Ondansetron HCl 4 mg 04/23/17 15:41 Zofran Injection IVPUSH Q6H PRN NAUSEA AND/OR VOMITING Oxycodone HCl 5 mg 04/25/17 08:36 Roxicodone - PO Q6H PRN PAIN LEVEL 1-5 Oxycodone HCl 10 mg 04/25/17 08:37 Roxicodone - PO Q6H PRN PAIN LEVEL 6-10 Pantoprazole Sodium 40 mg 04/24/17 10:00 04/25/17 09:39 Protonix - PO 40 mg DAILY BERTA Administration Sertraline HCl 25 mg 04/24/17 10:00 04/25/17 09:40 Zoloft - PO 25 mg DAILY BERTA Administration ASSESSMENT/PLAN: This is a 76 yo F with PMH of lung nodules, past smoker, HTN, depression, GERD, thyroid nodules, admitted to the ICU s/p robotic right middle lobe wedge resection, apical RUL wedge resection. Neuro - A&Ox3 - At baseline CV HTN and HLD - Continue meds - Lipitor 20, Norvasc 10 Pulm: POD1 s/p robotic right middle lobe wedge resection, apical RUL wedge resection - Frozen sections so far negative for oncology; f/u final path report - Nodes showing necrotizing granulomas - R chest tube in place to gravity with minimal sero sanguineous output and no air leak; clamped today, pending XR read to pull it out - CXR R apical small pneumo persists - Pain management with pairer substandard pump - Remove best FEN: - LR @ 75 - lytes stable - NA controlled diet - Hep, diet Dispo: - Continue to monitor in ICU - Dr. Jiménez suggested the patient should go home today, would appreciate EDITH aviles after chest tube Visit type - Emergency Visit Emergency Visit: Yes ED Registration Date: 04/23/17 Care time: The patient presented to the Emergency Department on the above date and was hospitalized for further evaluation of their emergent condition. - New Patient This patient is new to me today: Yes Date on this admission: 04/26/17 - Critical Care Critical Care patient: Yes Total Critical Care Time (in minutes): 40 Critical Care Statement: The care of this patient involved high complexity decision making to prevent further life threatening deterioration of the patient 's condition and/or to evaluate & treat vital organ system(s) failure or risk of failure.
--- NOTE | 2017-04-25 14:46 | PN ---
Teaching Attending Note Name of Resident: Og Lunsford ATTENDING PHYSICIAN STATEMENT I saw and evaluated the patient. I reviewed the resident's note and discussed the case with the resident. I agree with the resident's findings and plan as documented. SUBJECTIVE: Patient seen and examined in the ICU. Pain better controlled today. CT clamped. CXR: No PTX OBJECTIVE: Intake & Output 04/22/17 04/23/17 04/24/17 04/25/17 23:59 23:59 23:59 23:59 Intake Total 2225 2100 500 Output Total 1177 1859 220 Balance 1048 241 280 Weight 205 lb 196 lb 9.6 oz 198 lb Last Vital Signs Temp Pulse Resp BP Pulse Ox 98.9 F 77 18 158/72 98 04/25/17 13:57 04/25/17 13:25 04/25/17 13:57 04/25/17 13:57 04/24/17 20:18 Active Medications Acetaminophen (Tylenol -) 650 mg PO Q6H PRN PRN Reason: FEVER OR PAIN Alprazolam (Xanax -) 0.25 mg PO DAILY [facility] Last Admin: 04/25/17 09:47 Dose: 0.25 mg Amlodipine Besylate (Norvasc -) 10 mg PO DAILY [facility] Last Admin: 04/25/17 09:39 Dose: 10 mg Ascorbic Acid (Vitamin C -) 500 mg PO DAILY [facility] Last Admin: 04/25/17 09:40 Dose: 500 mg Atenolol (Tenormin -) 100 mg PO DAILY [facility] Last Admin: 04/25/17 09:39 Dose: 100 mg Atorvastatin Calcium (Lipitor -) 20 mg PO [facility] Last Admin: 04/24/17 23:21 Dose: 20 mg Bisacodyl (Dulcolax Suppository -) 10 mg RC DAILY PRN PRN Reason: CONSTIPATION Calcium Carbonate (Calcium Carbonate -) 650 mg PO DAILY PRN PRN Reason: GAS Chlorhexidine Gluconate (Hibiclens For Decolonization -) 1 applic TP HS [facility] Last Admin: 04/24/17 23:21 Dose: 1 applic Docusate Sodium (Colace -) 100 mg PO TID [facility] Last Admin: 04/25/17 09:38 Dose: 100 mg Heparin Sodium (Porcine) (Heparin -) 5,000 unit SQ BID [facility] Last Admin: 04/25/17 09:40 Dose: 5,000 unit Multivitamins/Minerals/Vitamin C (Tab-A-Vit -) 1 tab PO DAILY [facility] Last Admin: 04/25/17 09:38 Dose: 1 tab Mupirocin (Bactroban Ointment (For Decolonization) -) 1 applic NS BID [facility] Stop: 04/28/17 21:59 Last Admin: 04/25/17 09:47 Dose: 1 applic Ondansetron HCl (Zofran Injection) 4 mg IVPUSH Q6H PRN PRN Reason: NAUSEA AND/OR VOMITING Oxycodone HCl (Roxicodone -) 5 mg PO Q6H PRN PRN Reason: PAIN LEVEL 1-5 Oxycodone HCl (Roxicodone -) 10 mg PO Q6H PRN PRN Reason: PAIN LEVEL 6-10 Pantoprazole Sodium (Protonix -) 40 mg PO DAILY [facility] Last Admin: 04/25/17 09:39 Dose: 40 mg Sertraline HCl (Zoloft -) 25 mg PO DAILY [facility] Last Admin: 04/25/17 09:40 Dose: 25 mg Gen: NAD at rest Heart: RRR Lung: decreased breath sounds at the bases Abd: soft, nontender Ext: no edema Chest tube: no air leak, minimal drainage Laboratory Results - last 24 hr 04/25/17 04/25/17 05:00 05:00 WBC 8.1 RBC 3.60 Hgb 11.1 Hct 32.3 L MCV 89.9 MCH 30.9 MCHC 34.4 RDW 13.2 Plt Count 267 MPV 8.3 Neutrophils % 69.5 Lymphocytes % 20.1 D Monocytes % 8.9 Eosinophils % 1.1 D Basophils % 0.4 Sodium 134 L Potassium 4.2 Chloride 91 L Carbon Dioxide 36 H Anion Gap 7 L BUN 19 H D Creatinine 0.7 Random Glucose 122 H Calcium 9.4 Phosphorus 4.1 Magnesium 1.4 L ASSESSMENT AND PLAN: Lung Nodules s/p Robotic RML/RUL wedge resections HTN Hypercholesterolemia Depression - pain control - incentive spirometry - PO as tolerated - f/u final pathology - DVT prophylaxis - For CT removal Dr Stevens
[2017-04-25] MEDS ORDERED: MAGNESIUM SULF 50% (8.12 MEQ/2 ML-1 GM VIAL) IVPB ONE (16:10)
[2017-04-25] MEDS: CHLORHEXIDINE GLUCONATE 4% CLEANSER FOR DECOLONIZATION TP SCH (22:17)
[2017-04-25] MEDS: ATORVASTATIN CA 20 MG TABLET (FP) PO SCH (22:23)
[2017-04-26 06:18] LABS: BASOPHIL 0.6 % (0-2.0); EOSINOPHIL 1.8 % (0-4.5); MCH 30.8 pg (25.7-33.7); MCHC 34.2 g/dl (32.0-36.0); MEAN CELL VOLUME 89.9 fl (80-96); MEAN PLT VOLUME 8.3 fl (7.5-11.1); NEUTROPHILS 59.5 % (42.8-82.8); PLATELET COUNT 282 K/MM3 (134-434); RDW 13.1 % (11.6-15.6); WHITE BLOOD COUNT 6.8 K/mm3 (4.0-10.0)
[2017-04-26 06:40] LABS: ALBUMIN 2.7 g/dl (3.4-5.0); ANION GAP 6 (8-16); CALCIUM 8.5 mg/dL (8.5-10.1); CO2 36 mmol/L (21-32); CREATININE 0.8 mg/dL (0.55-1.02); GLUCOSE,RANDOM 102 mg/dL (74-106); MAGNESIUM 1.8 mg/dL (1.8-2.4); PHOSPHOROUS 3.9 mg/dL (2.5-4.9); SGOT/AST 19 U/L (15-37); SGPT/ALT 23 U/L (12-78)
[2017-04-26 06:42] LABS: ALK PHOS 58 U/L (45-117); BILIRUBIN,TOTAL 0.8 mg/dL (0.2-1.0); TOT PROT 5.8 g/dl (6.4-8.2)
[2017-04-26] MEDS: DOCUSATE SODIUM 100 MG CAPSULE (FP) PO SCH ×3 (07:00→21:10)
--- NOTE | 2017-04-26 07:04 | PN ---
Progress Note, Physician Chief Complaint: doing well no new c/o d/w pt and surgery plan to DC home - to check pre and post O2 most selene will need home meds results d/w pt- pt advised f/u final path outpt next week pt lives with some friends d/w pt DC planning; she wants to go home, referred to CM will need VNS scripts done as needed; - Current Medication List Current Medications: Active Medications Acetaminophen (Tylenol -) 650 mg PO Q6H PRN PRN Reason: FEVER OR PAIN Alprazolam (Xanax -) 0.25 mg PO DAILY [facility] Last Admin: 04/25/17 09:47 Dose: 0.25 mg Amlodipine Besylate (Norvasc -) 10 mg PO DAILY [facility] Last Admin: 04/25/17 09:39 Dose: 10 mg Ascorbic Acid (Vitamin C -) 500 mg PO DAILY [facility] Last Admin: 04/25/17 09:40 Dose: 500 mg Atenolol (Tenormin -) 100 mg PO DAILY [facility] Last Admin: 04/25/17 09:39 Dose: 100 mg Atorvastatin Calcium (Lipitor -) 20 mg PO HS [facility] Last Admin: 04/25/17 22:23 Dose: 20 mg Bisacodyl (Dulcolax Suppository -) 10 mg RC DAILY PRN PRN Reason: CONSTIPATION Calcium Carbonate (Calcium Carbonate -) 650 mg PO DAILY PRN PRN Reason: GAS Chlorhexidine Gluconate (Hibiclens For Decolonization -) 1 applic TP HS [facility] Last Admin: 04/25/17 22:17 Dose: 1 applic Docusate Sodium (Colace -) 100 mg PO TID [facility] Last Admin: 04/25/17 22:17 Dose: 100 mg Heparin Sodium (Porcine) (Heparin -) 5,000 unit SQ BID [facility] Last Admin: 04/25/17 22:17 Dose: 5,000 unit Multivitamins/Minerals/Vitamin C (Tab-A-Vit -) 1 tab PO DAILY [facility] Last Admin: 04/25/17 09:38 Dose: 1 tab Mupirocin (Bactroban Ointment (For Decolonization) -) 1 applic NS BID [facility] Stop: 04/28/17 21:59 Last Admin: 04/25/17 22:17 Dose: 1 applic Ondansetron HCl (Zofran Injection) 4 mg IVPUSH Q6H PRN PRN Reason: NAUSEA AND/OR VOMITING Oxycodone HCl (Roxicodone -) 5 mg PO Q6H PRN PRN Reason: PAIN LEVEL 1-5 Oxycodone HCl (Roxicodone -) 10 mg PO Q6H PRN PRN Reason: PAIN LEVEL 6-10 Pantoprazole Sodium (Protonix -) 40 mg PO DAILY [facility] Last Admin: 04/25/17 09:39 Dose: 40 mg Sertraline HCl (Zoloft -) 25 mg PO DAILY [facility] Last Admin: 04/25/17 09:40 Dose: 25 mg - Objective Vital Signs: Vital Signs Temperature 98.2 F 04/26/17 02:00 Pulse Rate 77 04/26/17 06:00 Respiratory Rate 20 04/26/17 06:00 Blood Pressure 140/73 04/26/17 06:00 O2 Sat by Pulse Oximetry (%) 98 04/25/17 19:52 Constitutional: Yes: No Distress, Calm Eyes: Yes: Conjunctiva Clear HENT: Yes: Atraumatic Neck: Yes: Supple Cardiovascular: Yes: Regular Rate and Rhythm Respiratory: Yes: CTA Bilaterally Gastrointestinal: Yes: Soft. No: Distention Genitourinary: No: CVA Tenderness - Left, CVA Tenderness - Right Musculoskeletal: No: Joint Stiffness, Joint Swelling Extremities: No: Cold, Cool Edema: No Integumentary: No: Rash, Venous Stasis Changes Neurological: Yes: WNL, Alert, Oriented ...Motor Strength: WNL Psychiatric: Yes: WNL, Alert, Oriented. No: Agitated, Suicidal Ideation Labs: CBC, BMP 04/26/17 05:00 04/26/17 05:00 - ....Imaging Other: Report Reviewed Assessment/Plan 76 y/o F with PMH HTN, depression, GERD, thyroid nodules, arthritis, degenerative disc dz, former smoker, s/p robotic right middle lobe wedge resection, apical rul wedge resection for R lung mass. PMH: HTN, depression, GERD, thyroid nodules x2, arthritis, degenerative disc dz , scoliosis PsxH: R carpal tunnel release, R trigger finger, L knee surgery, R breast- cyst removal x2 continue meds as ordered pain meds prn CT surgery f/u and pulmonary f/u outpt falls pfx might need home O2 f/u labs and CXR falls DVT PFX path and cx pending pt to check results next week d/w pt and staff DC planning per surgery and CM t time 35 min
--- NOTE | 2017-04-26 08:35 | PN ---
Progress Note (short form) - Note Progress Note: seen and examined. no major event or c/o this am. reviewed cxr. no f/c, n/v, sob, skelton, cough, hemoptysis, cp. afeb. rrr. min decreased bs b/l. dsg: c/d/i. +bs, soft, nt, nd. no c/c/e. a& o x3. CBC, BMP 04/26/17 05:00 04/26/17 05:00 Vital Signs (72 hours) 04/23/17 04/23/17 04/23/17 10:54 10:58 15:29 Temperature 98.2 F 97.9 F Pulse Rate 69 79 Respiratory 18 16 Rate Blood Pressure 182/80 139/72 O2 Sat by Pulse 97 98 Oximetry (%) 04/23/17 04/23/17 04/23/17 15:45 16:00 16:05 Temperature Pulse Rate 79 79 78 Respiratory 18 18 18 Rate Blood Pressure 160/66 158/76 158/68 O2 Sat by Pulse 99 98 Oximetry (%) 04/23/17 04/23/17 04/23/17 16:15 16:30 16:35 Temperature Pulse Rate 78 74 76 Respiratory 18 18 18 Rate Blood Pressure 158/68 155/66 150/68 O2 Sat by Pulse 98 95 Oximetry (%) 04/23/17 04/23/17 04/23/17 16:45 17:00 17:05 Temperature Pulse Rate 76 75 80 Respiratory 18 18 18 Rate Blood Pressure 150/68 160/67 160/80 O2 Sat by Pulse 95 99 Oximetry (%) 04/23/17 04/23/17 04/23/17 17:15 17:30 17:45 Temperature 98.1 F Pulse Rate 80 79 78 Respiratory 18 18 18 Rate Blood Pressure 160/80 163/71 162/78 O2 Sat by Pulse 95 97 96 Oximetry (%) 04/23/17 04/23/17 04/23/17 18:00 18:05 18:15 Temperature 98.1 F 98.1 F Pulse Rate 82 80 79 Respiratory 18 22 14 Rate Blood Pressure 158/76 168/80 168/80 O2 Sat by Pulse 96 96 Oximetry (%) 04/23/17 04/23/17 04/23/17 20:00 20:05 20:36 Temperature Pulse Rate 76 76 Respiratory 20 18 Rate Blood Pressure 149/80 149/80 O2 Sat by Pulse 98 Oximetry (%) 04/23/17 04/23/17 04/23/17 21:30 21:39 22:00 Temperature 98.4 F Pulse Rate 82 85 78 Respiratory 18 14 Rate Blood Pressure 154/74 154/74 157/79 O2 Sat by Pulse Oximetry (%) 04/23/17 04/24/17 04/24/17 22:05 00:00 00:05 Temperature Pulse Rate 78 77 75 Respiratory 14 14 18 Rate Blood Pressure 154/70 137/68 137/68 O2 Sat by Pulse Oximetry (%) 04/24/17 04/24/17 04/24/17 02:00 02:05 03:34 Temperature 98.2 F Pulse Rate 76 76 Respiratory 16 16 Rate Blood Pressure 142/76 142/76 120/53 O2 Sat by Pulse Oximetry (%) 04/24/17 04/24/17 04/24/17 04:00 04:05 06:00 Temperature 98.0 F Pulse Rate 71 71 80 Respiratory 14 18 18 Rate Blood Pressure 113/50 113/50 146/73 O2 Sat by Pulse Oximetry (%) 04/24/17 04/24/17 04/24/17 06:05 08:00 08:05 Temperature Pulse Rate 70 84 77 Respiratory 18 18 13 Rate Blood Pressure 146/70 169/81 157/71 O2 Sat by Pulse Oximetry (%) 04/24/17 04/24/17 04/24/17 09:00 10:00 10:05 Temperature 98.1 F Pulse Rate 86 84 Respiratory 18 15 Rate Blood Pressure 143/58 143/58 O2 Sat by Pulse 98 Oximetry (%) 04/24/17 04/24/17 04/24/17 12:00 12:05 14:00 Temperature Pulse Rate 88 80 80 Respiratory 18 22 22 Rate Blood Pressure 129/78 149/68 149/68 O2 Sat by Pulse Oximetry (%) 04/24/17 04/24/17 04/24/17 15:51 17:00 20:18 Temperature 98.3 F 98.7 F Pulse Rate 78 99 H Respiratory 22 33 H 33 H Rate Blood Pressure 147/71 O2 Sat by Pulse 98 Oximetry (%) 04/24/17 04/25/17 04/25/17 22:00 04:00 06:00 Temperature 98.4 F Pulse Rate 98 H 80 81 Respiratory 33 H 16 16 Rate Blood Pressure 177/72 173/70 164/61 O2 Sat by Pulse Oximetry (%) 04/25/17 04/25/17 04/25/17 08:00 09:00 10:00 Temperature 98.3 F Pulse Rate 80 81 Respiratory 16 18 Rate Blood Pressure 163/66 162/60 O2 Sat by Pulse 98 Oximetry (%) 04/25/17 04/25/17 04/25/17 12:00 13:25 13:57 Temperature 98.9 F Pulse Rate 80 77 Respiratory 18 18 18 Rate Blood Pressure 160/70 161/72 158/72 O2 Sat by Pulse Oximetry (%) 04/25/17 04/25/17 04/25/17 16:00 18:00 19:52 Temperature 98.2 F 98.7 F Pulse Rate 73 Respiratory 18 20 18 Rate Blood Pressure 151/68 165/78 O2 Sat by Pulse 98 Oximetry (%) 04/25/17 04/26/17 04/26/17 22:00 00:00 02:00 Temperature 98.2 F Pulse Rate 65 74 77 Respiratory 20 19 18 Rate Blood Pressure 155/53 153/74 106/95 O2 Sat by Pulse Oximetry (%) 04/26/17 04/26/17 04:00 06:00 Temperature Pulse Rate 65 77 Respiratory 20 20 Rate Blood Pressure 113/81 140/73 O2 Sat by Pulse Oximetry (%) a/p 76 yo, f, h/o rul/rml lung nodule and bulla. s/p robot rul/rml wedge resection, pneumolysis and bullectomy. stable clinically. 1. wean O2 as giovanny 2. oob amb w pt, pulm toilet, chest pt, is x10/hr 3. dc planning today w vna 4. d/w professor of apologetics, pmd, icu staff, and surg pa
--- NOTE | 2017-04-26 10:03 | PN ---
Teaching Attending Note Name of Resident: Og Lunsford ATTENDING PHYSICIAN STATEMENT I saw and evaluated the patient. I reviewed the resident's note and discussed the case with the resident. I agree with the resident's findings and plan as documented. SUBJECTIVE: Patient seen and examined in the ICU. Pain better controlled today. CT clamped. CXR: No PTX OBJECTIVE: Intake & Output 04/22/17 04/23/17 04/24/17 04/25/17 23:59 23:59 23:59 23:59 Intake Total 2225 2100 500 Output Total 1177 1859 220 Balance 1048 241 280 Weight 205 lb 196 lb 9.6 oz 198 lb Last Vital Signs Temp Pulse Resp BP Pulse Ox 98.9 F 77 18 158/72 98 04/25/17 13:57 04/25/17 13:25 04/25/17 13:57 04/25/17 13:57 04/24/17 20:18 Active Medications Acetaminophen (Tylenol -) 650 mg PO Q6H PRN PRN Reason: FEVER OR PAIN Alprazolam (Xanax -) 0.25 mg PO DAILY [facility] Last Admin: 04/25/17 09:47 Dose: 0.25 mg Amlodipine Besylate (Norvasc -) 10 mg PO DAILY [facility] Last Admin: 04/25/17 09:39 Dose: 10 mg Ascorbic Acid (Vitamin C -) 500 mg PO DAILY [facility] Last Admin: 04/25/17 09:40 Dose: 500 mg Atenolol (Tenormin -) 100 mg PO DAILY [facility] Last Admin: 04/25/17 09:39 Dose: 100 mg Atorvastatin Calcium (Lipitor -) 20 mg PO [facility] Last Admin: 04/24/17 23:21 Dose: 20 mg Bisacodyl (Dulcolax Suppository -) 10 mg RC DAILY PRN PRN Reason: CONSTIPATION Calcium Carbonate (Calcium Carbonate -) 650 mg PO DAILY PRN PRN Reason: GAS Chlorhexidine Gluconate (Hibiclens For Decolonization -) 1 applic TP HS [facility] Last Admin: 04/24/17 23:21 Dose: 1 applic Docusate Sodium (Colace -) 100 mg PO TID [facility] Last Admin: 04/25/17 09:38 Dose: 100 mg Heparin Sodium (Porcine) (Heparin -) 5,000 unit SQ BID [facility] Last Admin: 04/25/17 09:40 Dose: 5,000 unit Multivitamins/Minerals/Vitamin C (Tab-A-Vit -) 1 tab PO DAILY [facility] Last Admin: 04/25/17 09:38 Dose: 1 tab Mupirocin (Bactroban Ointment (For Decolonization) -) 1 applic NS BID [facility] Stop: 04/28/17 21:59 Last Admin: 04/25/17 09:47 Dose: 1 applic Ondansetron HCl (Zofran Injection) 4 mg IVPUSH Q6H PRN PRN Reason: NAUSEA AND/OR VOMITING Oxycodone HCl (Roxicodone -) 5 mg PO Q6H PRN PRN Reason: PAIN LEVEL 1-5 Oxycodone HCl (Roxicodone -) 10 mg PO Q6H PRN PRN Reason: PAIN LEVEL 6-10 Pantoprazole Sodium (Protonix -) 40 mg PO DAILY [facility] Last Admin: 04/25/17 09:39 Dose: 40 mg Sertraline HCl (Zoloft -) 25 mg PO DAILY [facility] Last Admin: 04/25/17 09:40 Dose: 25 mg Gen: NAD at rest Heart: RRR Lung: decreased breath sounds at the bases Abd: soft, nontender Ext: no edema Chest tube: no air leak, minimal drainage Laboratory Results - last 24 hr 04/25/17 04/25/17 05:00 05:00 WBC 8.1 RBC 3.60 Hgb 11.1 Hct 32.3 L MCV 89.9 MCH 30.9 MCHC 34.4 RDW 13.2 Plt Count 267 MPV 8.3 Neutrophils % 69.5 Lymphocytes % 20.1 D Monocytes % 8.9 Eosinophils % 1.1 D Basophils % 0.4 Sodium 134 L Potassium 4.2 Chloride 91 L Carbon Dioxide 36 H Anion Gap 7 L BUN 19 H D Creatinine 0.7 Random Glucose 122 H Calcium 9.4 Phosphorus 4.1 Magnesium 1.4 L ASSESSMENT AND PLAN: Lung Nodules s/p Robotic RML/RUL wedge resections HTN Hypercholesterolemia Depression - pain control - incentive spirometry - PO as tolerated - f/u final pathology - DVT prophylaxis - For CT removal Dr Stevens OBJECTIVE: ASSESSMENT AND PLAN:
[2017-04-26] MEDS ORDERED: ACETAMINOPHEN 325 MG TABLET (FP) PO PRN (10:16)
--- NOTE | 2017-04-26 11:03 | PN ---
Progress Note, Physician Chief Complaint: Pt doing well and pain controlled. - Current Medication List Current Medications: Active Medications Acetaminophen (Tylenol -) 650 mg PO Q6H PRN PRN Reason: FEVER OR PAIN Acetaminophen (Tylenol -) 650 mg PO Q4H PRN PRN Reason: PAIN SCALE 6-10 Stop: 04/29/17 10:15 Alprazolam (Xanax -) 0.25 mg PO DAILY [facility] Last Admin: 04/25/17 09:47 Dose: 0.25 mg Amlodipine Besylate (Norvasc -) 10 mg PO DAILY [facility] Last Admin: 04/25/17 09:39 Dose: 10 mg Ascorbic Acid (Vitamin C -) 500 mg PO DAILY [facility] Last Admin: 04/25/17 09:40 Dose: 500 mg Atenolol (Tenormin -) 100 mg PO DAILY [facility] Last Admin: 04/25/17 09:39 Dose: 100 mg Atorvastatin Calcium (Lipitor -) 20 mg PO HS [facility] Last Admin: 04/25/17 22:23 Dose: 20 mg Bisacodyl (Dulcolax Suppository -) 10 mg RC DAILY PRN PRN Reason: CONSTIPATION Calcium Carbonate (Calcium Carbonate -) 650 mg PO DAILY PRN PRN Reason: GAS Chlorhexidine Gluconate (Hibiclens For Decolonization -) 1 applic TP HS [facility] Last Admin: 04/25/17 22:17 Dose: 1 applic Docusate Sodium (Colace -) 100 mg PO TID [facility] Last Admin: 04/25/17 22:17 Dose: 100 mg Heparin Sodium (Porcine) (Heparin -) 5,000 unit SQ BID [facility] Last Admin: 04/25/17 22:17 Dose: 5,000 unit Multivitamins/Minerals/Vitamin C (Tab-A-Vit -) 1 tab PO DAILY [facility] Last Admin: 04/25/17 09:38 Dose: 1 tab Mupirocin (Bactroban Ointment (For Decolonization) -) 1 applic NS BID [facility] Stop: 04/28/17 21:59 Last Admin: 04/25/17 22:17 Dose: 1 applic Ondansetron HCl (Zofran Injection) 4 mg IVPUSH Q6H PRN PRN Reason: NAUSEA AND/OR VOMITING Oxycodone HCl (Roxicodone -) 5 mg PO Q6H PRN PRN Reason: PAIN LEVEL 1-5 Oxycodone HCl (Roxicodone -) 10 mg PO Q4H PRN PRN Reason: PAIN SCALE 6-10 Pantoprazole Sodium (Protonix -) 40 mg PO DAILY [facility] Last Admin: 04/25/17 09:39 Dose: 40 mg Sertraline HCl (Zoloft -) 25 mg PO DAILY [facility] Last Admin: 04/25/17 09:40 Dose: 25 mg - Objective Vital Signs: Vital Signs Temperature 98.6 F 04/26/17 10:00 Pulse Rate 100 H 04/26/17 10:48 Respiratory Rate 13 04/26/17 10:00 Blood Pressure 135/69 04/26/17 10:00 O2 Sat by Pulse Oximetry (%) 97 04/26/17 10:48 Constitutional: Yes: Well Nourished, No Distress, Calm Musculoskeletal: Yes: WNL Neurological: Yes: WNL, Alert, Oriented Labs: CBC, BMP 04/26/17 05:00 04/26/17 05:00 Assessment/Plan POD#3 s/p R robotic VATS with wedge resection and lobectomy under GA. Doing well. D/C [employer]ELF [employer]LL[employer].
[2017-04-26] MEDS: ASCORBIC ACID 500 MG TABLET (FP) PO SCH (11:25)
[2017-04-26] MEDS: PANTOPRAZOLE 40 MG TABLET (FP) PO SCH (11:25)
[2017-04-26] MEDS: HEPARIN NA (PORCINE) 5,000 UNITS/ML 1ML VIAL SQ SCH ×2 (11:25→21:11)
[2017-04-26] MEDS: MUPIROCIN 2% TOPICAL OINTMENT FOR DECOLONIZATION NS SCH (11:25)
[2017-04-26] MEDS: ATENOLOL 50 MG TABLET (FP) PO SCH (11:25)
[2017-04-26] MEDS: MULTIVITAMINS (DAILY MVI) TABLET (FP) PO SCH (11:26)
[2017-04-26] MEDS: SERTRALINE HCL 25 MG TABLET (FP) PO SCH (11:26)
[2017-04-26] MEDS: amLODIPine BESYLATE 10 MG TABLET (FP) PO SCH (11:26)
--- NOTE | 2017-04-26 11:30 | DS ---
Physical Examination Vital Signs: Vital Signs Temperature 98.6 F 04/26/17 10:00 Pulse Rate 100 H 04/26/17 10:48 Respiratory Rate 13 04/26/17 10:00 Blood Pressure 135/69 04/26/17 10:00 O2 Sat by Pulse Oximetry (%) 97 04/26/17 10:48 Constitutional: Yes: Well Nourished, Calm Cardiovascular: Yes: Regular Rate and Rhythm Respiratory: Yes: Regular, CTA Bilaterally, Other (Steristrips remain intact to the right chest. Dressing dry and intact with tegaderm from CT removal sight.) Gastrointestinal: Yes: WNL, Normal Bowel Sounds, Soft Extremities: No: Calf Tenderness Edema: No Labs: CBC, BMP 04/26/17 05:00 04/26/17 05:00 Discharge Summary Reason For Visit: LUNG NODULE Current Active Problems HLD (hyperlipidemia) (Acute) HTN (hypertension) (Acute) Lung nodule (Acute) S/P pneumonectomy (Acute) Condition: Good - Instructions Diet, Activity, Other Instructions: Keep incisions clean, dry and intact. VNS ordered for wound care, PT. The patient will also need home oxygen therapy. No showering. Leave dressing in place(gauze with tegaderm) where your chest tube was removed until Saturday, reinforce the dressing with tape if it begins to fall off. Steri strips to fall off on their own. Call to schedule a follow-up appointment with your surgeon for 1-2 weeks. Disposition: HOME - Home Medications Comprehensive Discharge Medication List: Ambulatory Orders Alprazolam [Xanax] 0.25 mg PO DAILY 04/22/17 Amlodipine Besylate 10 mg PO DAILY 04/22/17 Ascorbate Calcium [Vitamin C] 500 mg PO DAILY 04/22/17 Atenolol [Tenormin -] 100 mg PO DAILY 04/22/17 Multivitamin [One Daily] 1 each PO DAILY 04/22/17 Naproxen Sodium [Aleve] 220 mg PO PRN PRN 04/22/17 Omeprazole [Prilosec (RX)] 40 mg PO DAILY 04/22/17 Pravastatin Sodium [Pravachol -] 80 mg PO DAILY 04/23/17 Sertraline HCl [Zoloft -] 25 mg PO DAILY 04/23/17 Acetaminophen [Tylenol .Regular Strength -] 650 mg PO Q6H PRN tablet 04/26/17 Bisacodyl Suppository [Dulcolax Suppository -] 10 mg RC DAILY PRN supp.rect 06/12
--- NOTE | 2017-04-26 12:14 | PN ---
Teaching Attending Note Name of Resident: Og Lunsford ATTENDING PHYSICIAN STATEMENT I saw and evaluated the patient. I reviewed the resident's note and discussed the case with the resident. I agree with the resident's findings and plan as documented. SUBJECTIVE: Patient seen and examined in the ICU. Pain better controlled today. CT removed yesterday. CXR: No PTX, RUL atelectasis Intake & Output 04/23/17 04/24/17 04/25/17 04/26/17 23:59 23:59 23:59 23:59 Intake Total 2225 2100 1240 Output Total 1177 1859 820 Balance 1048 241 420 Weight 196 lb 9.6 oz 198 lb 193 lb 5 oz Last Vital Signs Temp Pulse Resp BP Pulse Ox 98.6 F 100 H 13 135/69 97 04/26/17 10:00 04/26/17 10:48 04/26/17 10:00 04/26/17 10:00 04/26/17 10:48 Active Medications Acetaminophen (Tylenol -) 650 mg PO Q6H PRN PRN Reason: FEVER OR PAIN Acetaminophen (Tylenol -) 650 mg PO Q4H PRN PRN Reason: PAIN SCALE 6-10 Stop: 04/29/17 10:15 Alprazolam (Xanax -) 0.25 mg PO DAILY [facility] Last Admin: 04/25/17 09:47 Dose: 0.25 mg Amlodipine Besylate (Norvasc -) 10 mg PO DAILY [facility] Last Admin: 04/26/17 11:26 Dose: 10 mg Ascorbic Acid (Vitamin C -) 500 mg PO DAILY [facility] Last Admin: 04/26/17 11:25 Dose: 500 mg Atenolol (Tenormin -) 100 mg PO DAILY [facility] Last Admin: 04/26/17 11:25 Dose: 100 mg Atorvastatin Calcium (Lipitor -) 20 mg PO [facility] Last Admin: 04/25/17 22:23 Dose: 20 mg Bisacodyl (Dulcolax Suppository -) 10 mg RC DAILY PRN PRN Reason: CONSTIPATION Calcium Carbonate (Calcium Carbonate -) 650 mg PO DAILY PRN PRN Reason: GAS Chlorhexidine Gluconate (Hibiclens For Decolonization -) 1 applic TP [facility] Last Admin: 04/25/17 22:17 Dose: 1 applic Docusate Sodium (Colace -) 100 mg PO TID [facility] Last Admin: 04/26/17 07:00 Dose: Not Given Heparin Sodium (Porcine) (Heparin -) 5,000 unit SQ BID [facility] Last Admin: 04/26/17 11:25 Dose: 5,000 unit Multivitamins/Minerals/Vitamin C (Tab-A-Vit -) 1 tab PO DAILY [facility] Last Admin: 04/26/17 11:26 Dose: 1 tab Mupirocin (Bactroban Ointment (For Decolonization) -) 1 applic NS BID [facility] Stop: 04/28/17 21:59 Last Admin: 04/26/17 11:25 Dose: 1 applic Ondansetron HCl (Zofran Injection) 4 mg IVPUSH Q6H PRN PRN Reason: NAUSEA AND/OR VOMITING Oxycodone HCl (Roxicodone -) 5 mg PO Q6H PRN PRN Reason: PAIN LEVEL 1-5 Oxycodone HCl (Roxicodone -) 10 mg PO Q4H PRN PRN Reason: PAIN SCALE 6-10 Pantoprazole Sodium (Protonix -) 40 mg PO DAILY [facility] Last Admin: 04/26/17 11:25 Dose: 40 mg Sertraline HCl (Zoloft -) 25 mg PO DAILY [facility] Last Admin: 04/26/17 11:26 Dose: 25 mg Gen: NAD at rest Heart: RRR Lung: decreased breath sounds at the bases Abd: soft, nontender Ext: no edema Chest tube: no air leak, minimal drainage Laboratory Results - last 24 hr 04/26/17 04/26/17 05:00 05:00 WBC 6.8 RBC 3.45 L Hgb 10.6 L Hct 31.1 L MCV 89.9 MCH 30.8 MCHC 34.2 RDW 13.1 Plt Count 282 MPV 8.3 Neutrophils % 59.5 Lymphocytes % 27.6 D Monocytes % 10.5 H Eosinophils % 1.8 Basophils % 0.6 Sodium 137 Potassium 3.8 Chloride 95 L Carbon Dioxide 36 H Anion Gap 6 L BUN 18 Creatinine 0.8 Creat Clearance w eGFR > 60 Random Glucose 102 Calcium 8.5 Phosphorus 3.9 Magnesium 1.8 D Total Bilirubin 0.8 D AST 19 D ALT 23 D Alkaline Phosphatase 58 D Total Protein 5.8 L Albumin 2.7 L D ASSESSMENT AND PLAN: Lung Nodules s/p Robotic RML/RUL wedge resections HTN Hypercholesterolemia Depression - pain control - incentive spirometry - PO as tolerated - f/u final pathology - DVT prophylaxis - Floor / DC planning Dr Stevens
--- NOTE | 2017-04-26 12:53 | PN ---
Physical Exam: SUBJECTIVE: Patient seen and examined and in no acute distress. The patient is a 76 yo F with PMH of lung nodules, past smoker, HTN, depression, GERD, thyroid nodules, admitted to the ICU s/p robotic right middle lobe wedge resection, apical RUL wedge resection. CXR ordered to monitor for R apical pneumothorax - stable. Chest tube removed. Patient states she feels comfortable. Surgeon removed O2 and the patient desatted to 88, then I placed the 2L O2 NC back on her and she became normoxic. Patient denies fever, chills, CP, SOB, nausea, vomiting, abd pain. OBJECTIVE: Vital Signs Period Temp Pulse Resp BP Sys/Jennings Pulse Ox Last 24 Hr 98.2 F-99.2 F 65-100 13-20 106-165/53-95 97-98 GENERAL: The patient is awake, alert, and fully oriented, in no acute distress. HEAD: Normal with no signs of trauma. EYES: PERRL, extraocular movements intact, sclera anicteric, conjunctiva clear. No ptosis. NECK: Trachea midline, full range of motion, supple. LUNGS: Breath sounds equal, clear to auscultation bilaterally, no wheezes, no crackles, no accessory muscle use. HEART: Regular rate and rhythm, S1, S2 without murmur, rub or gallop. ABDOMEN: Soft, nontender, nondistended, normoactive bowel sounds, no guarding, no rebound, no hepatosplenomegaly, no masses. EXTREMITIES: 2+ pulses, warm, well-perfused, no edema. NEUROLOGICAL: Cranial nerves II through XII grossly intact. Normal speech, gait not observed. PSYCH: Normal mood, normal affect. SKIN: Warm, dry, normal turgor, no rashes or lesions noted Laboratory Results - last 24 hr 04/26/17 04/26/17 05:00 05:00 WBC 6.8 RBC 3.45 L Hgb 10.6 L Hct 31.1 L MCV 89.9 MCH 30.8 MCHC 34.2 RDW 13.1 Plt Count 282 MPV 8.3 Neutrophils % 59.5 Lymphocytes % 27.6 D Monocytes % 10.5 H Eosinophils % 1.8 Basophils % 0.6 Sodium 137 Potassium 3.8 Chloride 95 L Carbon Dioxide 36 H Anion Gap 6 L BUN 18 Creatinine 0.8 Creat Clearance w eGFR > 60 Random Glucose 102 Calcium 8.5 Phosphorus 3.9 Magnesium 1.8 D Total Bilirubin 0.8 D AST 19 D ALT 23 D Alkaline Phosphatase 58 D Total Protein 5.8 L Albumin 2.7 L D Active Medications Generic Name Dose Route Start Last Admin Trade Name Freq PRN Reason Stop Dose Admin Acetaminophen 650 mg 04/25/17 08:38 Tylenol - PO Q6H PRN FEVER OR PAIN Acetaminophen 650 mg 04/26/17 10:16 Tylenol - PO 04/29/17 10:15 Q4H PRN PAIN SCALE 6-10 Alprazolam 0.25 mg 04/24/17 10:00 04/25/17 09:47 Xanax - PO 0.25 mg DAILY [facility] Administration Amlodipine Besylate 10 mg 04/24/17 10:00 04/26/17 11:26 Norvasc - PO 10 mg DAILY [facility] Administration Ascorbic Acid 500 mg 04/24/17 10:00 04/26/17 11:25 Vitamin C - PO 500 mg DAILY [facility] Administration Atenolol 100 mg 04/24/17 10:00 04/26/17 11:25 Tenormin - PO 100 mg DAILY [facility] Administration Atorvastatin Calcium 20 mg 04/24/17 22:00 04/25/17 22:23 Lipitor - PO 20 mg HS [facility] Administration Bisacodyl 10 mg 04/25/17 08:33 Dulcolax Suppository - RC DAILY PRN CONSTIPATION Calcium Carbonate 650 mg 04/24/17 15:16 Calcium Carbonate - PO DAILY [facility]N [facility] Chlorhexidine Gluconate 1 applic 04/23/17 22:00 04/25/17 22:17 Hibiclens For Decolonization - TP 1 applic HS [facility] Administration Docusate Sodium 100 mg 04/25/17 08:45 04/26/17 07:00 Colace - PO Not Given TID [facility] Heparin Sodium (Porcine) 5,000 unit 04/24/17 10:00 04/26/17 11:25 Heparin - SQ 5,000 unit BID [facility] Administration Multivitamins/Minerals/Vitamin C 1 tab 04/24/17 10:00 04/26/17 11:26 Tab-A-Vit - PO 1 tab DAILY [facility] Administration Mupirocin 1 applic 04/23/17 22:00 04/26/17 11:25 Bactroban Ointment (For Decolonization) - NS 04/28/17 21:59 1 applic BID [facility] Administration Ondansetron HCl 4 mg 04/23/17 15:41 Zofran Injection IVPUSH Q6H PRN NAUSEA AND/OR VOMITING Oxycodone HCl 5 mg 04/25/17 08:36 Roxicodone - PO Q6H PRN PAIN LEVEL 1-5 Oxycodone HCl 10 mg 04/26/17 10:16 Roxicodone - PO Q4H PRN PAIN SCALE 6-10 Pantoprazole Sodium 40 mg 04/24/17 10:00 04/26/17 11:25 Protonix - PO 40 mg DAILY [facility] Administration Sertraline HCl 25 mg 04/24/17 10:00 04/26/17 11:26 Zoloft - PO 25 mg DAILY [facility] Administration ASSESSMENT/PLAN: This is a 76 yo F with PMH of lung nodules, past smoker, HTN, depression, GERD, thyroid nodules, admitted to the ICU s/p robotic right middle lobe wedge resection, apical RUL wedge resection. Neuro - A&Ox3 - At baseline CV HTN and HLD - Continue meds - Lipitor 20, Norvasc 10 Pulm: POD3 s/p robotic right middle lobe wedge resection, apical RUL wedge resection - Chest tube removed, patient is not complaining of SOB - Lung reyes CTAB - Patient desatted when on RA; currently 2L and normoxic - Desatting likely 2/2 to COPD - Will require home O2 - Patient was walked and desatted on ambulation; continued - Nodes showing necrotizing granulomas - CXR R apical small pneumo persists - Pain management with brands editor pump - Remove best FEN: - LR @ 75 - lytes stable - NA controlled diet - Hep, diet Dispo: - Discharge home with follow up with pulmonologists Visit type - Emergency Visit Emergency Visit: Yes ED Registration Date: 04/23/17 Care time: The patient presented to the Emergency Department on the above date and was hospitalized for further evaluation of their emergent condition. - New Patient This patient is new to me today: No - Critical Care Critical Care patient: Yes Total Critical Care Time (in minutes): 55 Critical Care Statement: The care of this patient involved high complexity decision making to prevent further life threatening deterioration of the patient 's condition and/or to evaluate & treat vital organ system(s) failure or risk of failure.
[2017-04-26] MEDS: ALPRAZolam 0.25 MG TABLET PO SCH (16:00)
--- NOTE | 2017-04-26 16:27 | PATH ---
Surgical Pathology Report Patient Name: KARLENE PATE [facility]. Rec. #: [id number] /Age/Gender: 1940 (Age: 76) / F Account: [id number] Location: 4 SO PEDS/ADOL Taken: 04/23/2017 Received: 04/23/2017 Reported: 04/26/2017 Physicians: Scot Jiménez MD Specimen(s) Received A: PORTION OF RIGHT MIDDLE LOBE B: RIGHT UPPER LOBE WEDGE RESECTION Clinical History Lung nodule Intraoperative Consult Diagnosis Lung nodule, wedge excision: Negative for malignant cells. Lung parenchyma with caseating and granulomatous inflammation. Jeremy Carrasco M.D., 04/23/17 Final Diagnosis A. LUNG, RIGHT MIDDLE LOBE, WEDGE RESECTION: BENIGN LUNG TISSUE WITH NECROTIZING GRANULOMA. NO NEOPLASM IDENTIFIED. ACID FAST AND FUNGAL(PAS) STAINS ARE NEGATIVE. B. LUNG, RIGHT UPPER LOBE, WEDGE RESECTION: WELL DIFFERENTIATED MINIMALLY INVASIVE ADENOCARCINOMA, NONMUCINOUS, PREDOMINANTLY LEPIDIC PATTERN WITH MINOR ACINAR COMPONENT (<5MM), WITH ENTIRE LESION MEASURING 0.8 CM IN GREATEST DIMENSION. CARCINOMA IS 0.4 CM FROM PLEURA, AND 0.4 CM FROM PARENCHYMAL MARGIN OF EXCISION. NO LYMPH VASCULAR INVASION, PLEURAL INVASION, VASCULAR INVASION, OR EXTENSION INTO AIR SPACE IDENTIFIED. NO TUMOR NECROSIS IDENTIFIED. PLEURAL FIBROSIS WITH FOCAL FOREIGN BODY REACTION PRESENT. SCATTERED NECROTIZING GRANULOMAS PRESENT. ACID FAST AND FUNGAL (PAS) STAINS ARE NEGATIVE. ADDITIONAL WEDGE OF LUNG TISSUE PRESENT WITH FOREIGN BODY REACTION. Comment: Immunohistochemical stain for TTF-1 performed and interpreted at [facility] is positive in the tumor, consistent with primary pulmonary adenocarcinoma. Immunostain for PD-L1 is pending, and report will follow. This case was initially discussed with Dr. Jiménez on April 25, 2017. Comments Lung Carcinoma: Surgical Pathology Cancer Case Summary (Checklist) Based on AJCC/UICC TNM, 7th edition Specimen Laterality _X__ Right Specimen Integrity _X__ Intact Tumor Site _X__ Upper lobe Tumor Size Greatest dimension: 0.8 cm Tumor Focality _X__ Unifocal Histologic Type : ADENOCARCINOMA, PREDOMINANTLY LEPIDIC WITH ACINAR Histologic Grade _X__ G1: Well differentiated Visceral Pleura Invasion _X__ Not identified Tumor Extension : LIMITED TO LUNG Margins Bronchial Margin _X__ Not applicable Vascular Margin _X__ Not applicable Parenchymal Margin _X__ Uninvolved by invasive carcinoma Parietal Pleural Margin _X__ Not applicable Chest Wall Margin _X__ Not applicable If all margins uninvolved by invasive carcinoma: Distance of invasive carcinoma from closest margin: 4 mm Specify margin: PARENCHYMAL Treatment Effect _X__ Not applicable Lymph-Vascular Invasion _X__ Not identified Pathologic Staging (pTNM) Primary Tumor: pT1a (pT1mi in AJCC Cancer Staging Manual, Eighth Edition) Regional Lymph Nodes: pNX Distant Metastasis: pMX Electronically Signed Ace Torres M.D. Addendum Reported: 04/30/2017 Addendum Diagnosis PD-L1 (Keytruda) IHC, Clone 22C3 Pharm DX performed and interpreted at [facility] [place], [place] ([id number]) shows the following: RESULT: PD-L1 (Keytruda) TPS: 2% (Low PD-L1 Expression) Reference Range: TPS=Tumor Proportion Score (% of at least 100 viable tumor cells showing complete or partial membrane staining at = 1+) TPS <1% = No Expression TPS 1-49% = Low Expression. (Eligible for second line treatment with Keytruda) TPS =50% = High Expression. (Eligible for first or second line treatment with Keytruda) Ace Torres M.D. Gross Description A. Received fresh labeled "portion of right middle lobe," is a 2.1 x 1.5 x 0.4 cm portion of lung with a stapled margin of resection. The pleura displays a focal defect with valdes, cheesy, necrotic material exuding from the defect. The staple line is removed and the specimen is bisected. There is a 0.7 x 0.6 x 0.3 cm vadles, cheesy nodule at 0.3 cm from the stapled margin. A leather goods sales representative half is submitted for frozen section. The specimen is entirely submitted in 3 cassettes as follows: 1-frozen section residue; 2-remaining half of specimen; 3-stapled margin. B. Received in formalin labeled "right upper lobe wedge resection," are 2 lung wedges measuring 4.3 x 1.5 x 0.5 cm and 9.5 x 2.5 x 1.7 cm. The specimens display stapled resection margins and intact pleura. There is an additional 2.7 cm staple line separately received within the same container. Sectioning reveals red-brown, unremarkable lung parenchyma within the smaller specimen. Sectioning of the larger specimen displays a 0.5 x 0.4 x 0.4 cm possible valdes nodule. The nodule is at 0.4 cm from the staple line. The remaining lung parenchyma is valdes-brown and spongy. Hospice Registered Nurse sections are submitted in 12 cassettes as follows: 4-4-[id number] submitted smaller lung wedge; 5-73-[id number] submitted leather goods sales representative larger lung wedge (possible nodule in cassettes as 5-7). Additional cassettes are submitted as follows: 17-79-[id number] of larger wedge; 23-91-bnpkwl margin from larger lung wedge; 18-staple margin from smaller lung wedge. 04/23/2017 [facility]04/23/2017
[2017-04-26] MEDS: HYDROmorphone *PCA* 10MG/50ML DISP.SYRIN PCA SCH (17:58)
[2017-04-26] MEDS ORDERED: SODIUM CHLORIDE 1,000 ML IV SCH (18:15)
[2017-04-26] MEDS: ATORVASTATIN CA 20 MG TABLET (FP) PO SCH (21:10)
[2017-04-26 21:25] LABS: CPK 50 IU/L (26-192); TROPONIN I < 0.02 ng/ml (0.00-0.05)
[2017-04-27] MEDS: DOCUSATE SODIUM 100 MG CAPSULE (FP) PO SCH ×3 (06:39→20:59)
[2017-04-27 07:36] LABS: ANION GAP 5 (8-16); BASOPHIL 0.6 % (0-2.0); CO2 34 mmol/L (21-32); CREATININE 0.6 mg/dL (0.55-1.02); EOSINOPHIL 3.3 % (0-4.5); GLUCOSE,RANDOM 107 mg/dL (74-106); MCH 30.6 pg (25.7-33.7); MCHC 34.4 g/dl (32.0-36.0); MEAN CELL VOLUME 88.8 fl (80-96); MEAN PLT VOLUME 8.1 fl (7.5-11.1); NEUTROPHILS 62.4 % (42.8-82.8); PLATELET COUNT 273 K/MM3 (134-434); RDW 13.1 % (11.6-15.6); WHITE BLOOD COUNT 5.7 K/mm3 (4.0-10.0)
--- NOTE | 2017-04-27 07:38 | PN ---
Progress Note, Physician Chief Complaint: events noted pt was presyncopal - DC home cancelled and pt tranferred to telemetry no CP/SOB but felt weak dizzy and vomited - Current Medication List Current Medications: Active Medications Acetaminophen (Tylenol -) 650 mg PO Q6H PRN PRN Reason: FEVER OR PAIN Acetaminophen (Tylenol -) 650 mg PO Q4H PRN PRN Reason: PAIN SCALE 6-10 Stop: 04/29/17 10:15 Alprazolam (Xanax -) 0.25 mg PO DAILY [facility] Last Admin: 04/26/17 16:00 Dose: 0.25 mg Amlodipine Besylate (Norvasc -) 10 mg PO DAILY [facility] Last Admin: 04/26/17 11:26 Dose: 10 mg Ascorbic Acid (Vitamin C -) 500 mg PO DAILY [facility] Last Admin: 04/26/17 11:25 Dose: 500 mg Atenolol (Tenormin -) 100 mg PO DAILY [facility] Last Admin: 04/26/17 11:25 Dose: 100 mg Atorvastatin Calcium (Lipitor -) 20 mg PO HS [facility] Last Admin: 04/26/17 21:10 Dose: 20 mg Bisacodyl (Dulcolax Suppository -) 10 mg RC DAILY PRN PRN Reason: CONSTIPATION Calcium Carbonate (Calcium Carbonate -) 650 mg PO DAILY PRN PRN Reason: GAS Docusate Sodium (Colace -) 100 mg PO TID [facility] Last Admin: 04/27/17 06:39 Dose: 100 mg Heparin Sodium (Porcine) (Heparin -) 5,000 unit SQ BID [facility] Last Admin: 04/26/17 21:11 Dose: 5,000 unit Sodium Chloride (Normal Saline -) 1,000 mls @ 75 mls/hr IV ASDIR [facility] Stop: 04/27/17 12:00 Last Admin: 04/26/17 21:07 Dose: 75 mls/hr Multivitamins/Minerals/Vitamin C (Tab-A-Vit -) 1 tab PO DAILY [facility] Last Admin: 04/26/17 11:26 Dose: 1 tab Ondansetron HCl (Zofran Injection) 4 mg IVPUSH Q6H PRN PRN Reason: NAUSEA AND/OR VOMITING Oxycodone HCl (Roxicodone -) 5 mg PO Q6H PRN PRN Reason: PAIN LEVEL 1-5 Oxycodone HCl (Roxicodone -) 10 mg PO Q4H PRN PRN Reason: PAIN SCALE 6-10 Pantoprazole Sodium (Protonix -) 40 mg PO DAILY [facility] Last Admin: 04/26/17 11:25 Dose: 40 mg Sertraline HCl (Zoloft -) 25 mg PO DAILY [facility] Last Admin: 04/26/17 11:26 Dose: 25 mg - Objective Vital Signs: Vital Signs Temperature 98.9 F 04/27/17 06:00 Pulse Rate 88 04/27/17 06:00 Respiratory Rate 18 04/27/17 06:00 Blood Pressure 158/72 04/27/17 06:00 O2 Sat by Pulse Oximetry (%) 98 04/26/17 21:00 Constitutional: Yes: No Distress, Calm Eyes: Yes: Conjunctiva Clear HENT: Yes: Atraumatic Neck: Yes: Supple Cardiovascular: Yes: Regular Rate and Rhythm Respiratory: Yes: CTA Bilaterally, Other (CT out) Gastrointestinal: Yes: Soft. No: Distention, Tenderness Genitourinary: No: CVA Tenderness - Left, CVA Tenderness - Right Musculoskeletal: No: Joint Stiffness, Joint Swelling Extremities: No: Cold, Cool, Cyanosis Edema: No Integumentary: No: Rash, Venous Stasis Changes Neurological: Yes: WNL, Alert, Oriented ...Motor Strength: WNL Psychiatric: Yes: WNL, Alert, Oriented. No: Agitated, Suicidal Ideation - ....Imaging Other: Report Reviewed Assessment/Plan 76 y/o F with PMH HTN, depression, GERD, thyroid nodules, arthritis, degenerative disc dz, former smoker, s/p robotic right middle lobe wedge resection, apical rul wedge resection for R lung mass. PMH: HTN, depression, GERD, thyroid nodules x2, arthritis, degenerative disc dz , scoliosis pain meds prn CT surgery f/u and pulmonary f/u presyncope: most likely vasovagal - cardiology eval; telemtry; CEx3 falls pfx will need home O2 per pre and post f/u labs and CXR falls DVT PFX path and cx d/w pt upper lobe + for adenoCA advised to see heme onc dr Matthews as outpt d/w pt and staff DC planning per surgery and CM t time 35 min
[2017-04-27] MEDS ORDERED: PT OWN MED DRAWER 7, Y5N ONE (08:38)
[2017-04-27] MEDS: HEPARIN NA (PORCINE) 5,000 UNITS/ML 1ML VIAL SQ SCH ×2 (09:11→20:59)
[2017-04-27] MEDS: ASCORBIC ACID 500 MG TABLET (FP) PO SCH (09:11)
[2017-04-27] MEDS: PANTOPRAZOLE 40 MG TABLET (FP) PO SCH (09:11)
[2017-04-27] MEDS: ATENOLOL 50 MG TABLET (FP) PO SCH (09:11)
[2017-04-27] MEDS: MULTIVITAMINS (DAILY MVI) TABLET (FP) PO SCH (09:12)
[2017-04-27] MEDS: ALPRAZolam 0.25 MG TABLET PO SCH (09:12)
[2017-04-27] MEDS: amLODIPine BESYLATE 10 MG TABLET (FP) PO SCH (09:12)
[2017-04-27] MEDS: SERTRALINE HCL 25 MG TABLET (FP) PO SCH (09:13)
--- NOTE | 2017-04-27 10:31 | PN ---
Progress Note (short form) - Note Progress Note: seen and examined. anxious about going home w no home health care provider. no f/c, cough, hemoptysis, cp. afeb. rrr. min decreased bs. dsg: c/d/i. +bs, soft, nt, nd. no c/c/e. a&o x3. CBC, BMP 04/27/17 06:00 04/27/17 06:00 Vital Signs (72 hours) 04/24/17 04/24/17 04/24/17 12:00 12:05 14:00 Temperature Pulse Rate 88 80 80 Respiratory 18 22 22 Rate Blood Pressure 129/78 149/68 149/68 O2 Sat by Pulse Oximetry (%) 04/24/17 04/24/17 04/24/17 15:51 17:00 20:18 Temperature 98.3 F 98.7 F Pulse Rate 78 99 H Respiratory 22 33 H 33 H Rate Blood Pressure 147/71 O2 Sat by Pulse 98 Oximetry (%) 04/24/17 04/25/17 04/25/17 22:00 04:00 06:00 Temperature 98.4 F Pulse Rate 98 H 80 81 Respiratory 33 H 16 16 Rate Blood Pressure 177/72 173/70 164/61 O2 Sat by Pulse Oximetry (%) 04/25/17 04/25/17 04/25/17 08:00 09:00 10:00 Temperature 98.3 F Pulse Rate 80 81 Respiratory 16 18 Rate Blood Pressure 163/66 162/60 O2 Sat by Pulse 98 Oximetry (%) 04/25/17 04/25/17 04/25/17 12:00 13:25 13:57 Temperature 98.9 F Pulse Rate 80 77 Respiratory 18 18 18 Rate Blood Pressure 160/70 161/72 158/72 O2 Sat by Pulse Oximetry (%) 04/25/17 04/25/17 04/25/17 16:00 18:00 19:52 Temperature 98.2 F 98.7 F Pulse Rate 73 Respiratory 18 20 18 Rate Blood Pressure 151/68 165/78 O2 Sat by Pulse 98 Oximetry (%) 04/25/17 04/26/17 04/26/17 22:00 00:00 02:00 Temperature 98.2 F Pulse Rate 65 74 77 Respiratory 20 19 18 Rate Blood Pressure 155/53 153/74 106/95 O2 Sat by Pulse Oximetry (%) 04/26/17 04/26/17 04/26/17 04:00 06:00 08:00 Temperature 99.2 F Pulse Rate 65 77 90 Respiratory 20 20 18 Rate Blood Pressure 113/81 140/73 158/67 O2 Sat by Pulse Oximetry (%) 04/26/17 04/26/17 04/26/17 09:00 10:00 10:48 Temperature 98.6 F Pulse Rate 91 H 100 H Respiratory 13 Rate Blood Pressure 135/69 O2 Sat by Pulse 97 97 Oximetry (%) 04/26/17 04/26/17 04/26/17 14:00 18:00 21:00 Temperature 98.1 F 98.5 F Pulse Rate 71 70 Respiratory 14 16 17 Rate Blood Pressure 121/62 131/67 O2 Sat by Pulse 98 Oximetry (%) 04/26/17 04/27/17 04/27/17 22:00 01:57 06:00 Temperature 98.6 F 99.0 F 98.9 F Pulse Rate 83 82 88 Respiratory 18 18 18 Rate Blood Pressure 136/67 143/57 158/72 O2 Sat by Pulse Oximetry (%) 04/27/17 09:00 Temperature Pulse Rate Respiratory 18 Rate Blood Pressure O2 Sat by Pulse 98 Oximetry (%) a/p 76 yo, f, h/o rul/rml lung nodule and bulla. s/p robot rul/rml wedge resection, pneumolysis and bullectomy. no acute surgical issue. stable clinically. 1. cont supp care, wean O2 as giovanny 2. oob amb w pt, pulm toilet, chest pt, is x10/hr 3. dc planning per dr. suarez 4. will follow
[2017-04-27] MEDS: ACETAMINOPHEN 325 MG TABLET (FP) PO PRN (10:54)
[2017-04-27 11:01] LABS: CPK 37 IU/L (26-192); TROPONIN I < 0.02 ng/ml (0.00-0.05)
[2017-04-27 11:06] LABS: THYROID STIMULATING HORMONE 0.89 uIU/ml (0.358-3.74)
--- NOTE | 2017-04-27 12:19 | PN ---
Progress Note, Physician History of Present Illness: PULMONARY ALERT,NAD,-SOB,MILD INCISIONAL CP - Current Medication List Current Medications: Active Medications Acetaminophen (Tylenol -) 650 mg PO Q6H PRN PRN Reason: FEVER OR PAIN Last Admin: 04/27/17 10:54 Dose: 650 mg Acetaminophen (Tylenol -) 650 mg PO Q4H PRN PRN Reason: PAIN SCALE 6-10 Stop: 04/29/17 10:15 Alprazolam (Xanax -) 0.25 mg PO DAILY [facility] Last Admin: 04/27/17 09:12 Dose: 0.25 mg Amlodipine Besylate (Norvasc -) 10 mg PO DAILY [facility] Last Admin: 04/27/17 09:12 Dose: 10 mg Ascorbic Acid (Vitamin C -) 500 mg PO DAILY [facility] Last Admin: 04/27/17 09:11 Dose: 500 mg Atenolol (Tenormin -) 100 mg PO DAILY [facility] Last Admin: 04/27/17 09:11 Dose: 100 mg Atorvastatin Calcium (Lipitor -) 20 mg PO HS [facility] Last Admin: 04/26/17 21:10 Dose: 20 mg Bisacodyl (Dulcolax Suppository -) 10 mg RC DAILY PRN PRN Reason: CONSTIPATION Calcium Carbonate (Calcium Carbonate -) 650 mg PO DAILY PRN PRN Reason: GAS Docusate Sodium (Colace -) 100 mg PO TID [facility] Last Admin: 04/27/17 06:39 Dose: 100 mg Heparin Sodium (Porcine) (Heparin -) 5,000 unit SQ BID [facility] Last Admin: 04/27/17 09:11 Dose: 5,000 unit Multivitamins/Minerals/Vitamin C (Tab-A-Vit -) 1 tab PO DAILY [facility] Last Admin: 04/27/17 09:12 Dose: 1 tab Ondansetron HCl (Zofran Injection) 4 mg IVPUSH Q6H PRN PRN Reason: NAUSEA AND/OR VOMITING Oxycodone HCl (Roxicodone -) 5 mg PO Q6H PRN PRN Reason: PAIN LEVEL 1-5 Oxycodone HCl (Roxicodone -) 10 mg PO Q4H PRN PRN Reason: PAIN SCALE 6-10 Pantoprazole Sodium (Protonix -) 40 mg PO DAILY [facility] Last Admin: 04/27/17 09:11 Dose: 40 mg Sertraline HCl (Zoloft -) 25 mg PO DAILY [facility] Last Admin: 04/27/17 09:13 Dose: 25 mg - Objective Vital Signs: Vital Signs Temperature 99.4 F 04/27/17 10:00 Pulse Rate 90 04/27/17 10:00 Respiratory Rate 18 04/27/17 10:00 Blood Pressure 150/74 04/27/17 10:00 O2 Sat by Pulse Oximetry (%) 98 04/27/17 09:00 Constitutional: Yes: Well Nourished, Calm Eyes: Yes: WNL HENT: Yes: WNL Neck: Yes: WNL Cardiovascular: Yes: Regular Rate and Rhythm, S1, S2 Respiratory: Yes: Diminished Gastrointestinal: Yes: Normal Bowel Sounds, Soft Extremities: Yes: WNL Edema: No Labs: CBC, BMP 04/27/17 06:00 04/27/17 06:00 Problem List - Problems (2) HLD (hyperlipidemia) Code(s): E78.5 - HYPERLIPIDEMIA, UNSPECIFIED (3) HTN (hypertension) Code(s): I10 - ESSENTIAL (PRIMARY) HYPERTENSION (4) Lung nodule Code(s): R91.1 - SOLITARY PULMONARY NODULE Assessment/Plan ASSESSMENT AND PLAN: Lung Nodules +caseating granuloma s/p Robotic RML/RUL wedge resections HTN Hypercholesterolemia Depression - pain control - incentive spirometry - PO as tolerated - DVT prophylaxis DR SHEIKH
--- NOTE | 2017-04-27 13:01 | PN ---
Progress Note (short form) - Note Progress Note: Chief Complaint: Events noted, notes reviewed, denies any recurrent dizziness, near syncope or syncope, reports incisional chest discomfort which is exacerbated by cough and deep inspiration, denies dyspnea History of Present Illness: Seen and examined on telemetry. Full consult dictated - Current Medication List Current Medications Acetaminophen (Tylenol -) 650 mg PO Q6H PRN PRN Reason: FEVER OR PAIN Last Admin: 04/27/17 10:54 Dose: 650 mg Acetaminophen (Tylenol -) 650 mg PO Q4H PRN PRN Reason: PAIN SCALE 6-10 Stop: 04/29/17 10:15 Alprazolam (Xanax -) 0.25 mg PO DAILY [facility] Last Admin: 04/27/17 09:12 Dose: 0.25 mg Amlodipine Besylate (Norvasc -) 10 mg PO DAILY [facility] Last Admin: 04/27/17 09:12 Dose: 10 mg Ascorbic Acid (Vitamin C -) 500 mg PO DAILY [facility] Last Admin: 04/27/17 09:11 Dose: 500 mg Atenolol (Tenormin -) 100 mg PO DAILY [facility] Last Admin: 04/27/17 09:11 Dose: 100 mg Atorvastatin Calcium (Lipitor -) 20 mg PO HS [facility] Last Admin: 04/26/17 21:10 Dose: 20 mg Bisacodyl (Dulcolax Suppository -) 10 mg RC DAILY PRN PRN Reason: CONSTIPATION Calcium Carbonate (Calcium Carbonate -) 650 mg PO DAILY PRN PRN Reason: GAS Docusate Sodium (Colace -) 100 mg PO TID [facility] Last Admin: 04/27/17 06:39 Dose: 100 mg Heparin Sodium (Porcine) (Heparin -) 5,000 unit SQ BID [facility] Last Admin: 04/27/17 09:11 Dose: 5,000 unit Multivitamins/Minerals/Vitamin C (Tab-A-Vit -) 1 tab PO DAILY [facility] Last Admin: 04/27/17 09:12 Dose: 1 tab Ondansetron HCl (Zofran Injection) 4 mg IVPUSH Q6H PRN PRN Reason: NAUSEA AND/OR VOMITING Oxycodone HCl (Roxicodone -) 5 mg PO Q6H PRN PRN Reason: PAIN LEVEL 1-5 Oxycodone HCl (Roxicodone -) 10 mg PO Q4H PRN PRN Reason: PAIN SCALE 6-10 Pantoprazole Sodium (Protonix -) 40 mg PO DAILY [facility] Last Admin: 04/27/17 09:11 Dose: 40 mg Sertraline HCl (Zoloft -) 25 mg PO DAILY [facility] Last Admin: 04/27/17 09:13 Dose: 25 mg - Review of Systems Cardiovascular: As noted above Respiratory: As noted above Gastrointestinal: denies: Diarrhea, Constipation or Abdominal Pain Musculoskeletal: No symptoms reported Neurological: No symptoms reported - Objective Vital Signs: Last Vital Signs Temp Pulse Resp BP Pulse Ox 99.4 F 90 18 150/74 98 04/27/17 10:00 04/27/17 10:00 04/27/17 10:00 04/27/17 10:00 04/27/17 09:00 Intake & Output 04/24/17 04/25/17 04/26/17 04/27/17 23:59 23:59 23:59 23:59 Intake Total 2100 5077 781 9351 Output Total 1859 820 Balance 241 733 457 5920 Weight 196 lb 9.6 oz 198 lb 193 lb 5 oz 199 lb 4 oz Neck: Supple Negative JVD Cardiovascular: S1 S2 Regular Rate Rhythm Respiratory: Diminished breath sounds Bilaterally Gastrointestinal: Soft Benign Normal Bowel Sounds Ext: Negative Edema Labs: CBC, BMP 04/27/17 06:00 04/27/17 06:00 Hepatic Panel Total Bilirubin 0.8 mg/dL (0.2-1.0) D 04/26/17 05:00 AST 19 U/L (15-37) D 04/26/17 05:00 ALT 23 U/L (12-78) D 04/26/17 05:00 Alkaline Phosphatase 58 U/L (45-117) D 04/26/17 05:00 Albumin 2.7 g/dl (3.4-5.0) L D 04/26/17 05:00 Assessment/Plan ASSESSMENT: 1. Nausea/vomiting followed by dizziness/near syncope, clinical presentation is consistent with a vasovagal event 2. Diastolic LV dysfunction with class 0 NYHA classification LV failure 3. HTN 4. Hypercholesterolemia 5. Post VATS robot assisted right upper lobe/right middle lobe wedge resection, pneumolysis and bullectomy, malignant lung mass 6. Anemia PLAN: 1. Continue Atenolol therapy 2. Continue Amlodipine therapy 3. Continue Lipitor therapy 4. Recommend initiation of Aspirin therapy unless it is contraindicated 5. No additional intervention is indicated for the above-noted clinical presentation unless symptoms recur Brett Crowe MD
--- NOTE | 2017-04-27 13:50 | CONS ---
DATE OF CONSULTATION: 04/27/2017 CONSULTATION REQUESTED BY: Janette Figueroa MD CHIEF COMPLAINT: Evaluation of dizziness, near syncope. HISTORY OF PRESENT ILLNESS: Patient known to our service from a recent preprocedure cardiovascular evaluation. A 76-year-old female with known history of diastolic left ventricular dysfunction with class zero [place] Heart Association Classification left ventricular failure, hypertensive cardiovascular disease, hypercholesterolemia, hiatal hernia with Butler esophagus, diverticular disease, who was recently noted to have evidence of right middle lobe nodule for which wedge resection was planned and was performed April 23, 2017. Postoperative course was uncomplicated until yesterday, April 26, 2017, when patient had sudden onset of nausea, vomiting followed by dizziness and near syncope. Patient denied any loss of consciousness. The above-noted episode has not recurred since. Patient has been reporting incisional chest discomfort which is exacerbated by certain movements, cough and deep inspiration. Patient reports dyspnea with moderate physical exertion. Patient denies any orthopnea, paroxysmal nocturnal dyspnea or peripheral edema. Patient denies any palpitation or syncope. Patient reports fatigue and tiredness. Patient is concerned about being discharged home since she resides alone. PAST MEDICAL HISTORY: Diastolic left ventricular dysfunction with class zero [place] Heart Association Classification left ventricular failure, hypertensive cardiovascular disease, hypercholesterolemia, recently diagnosed right middle lobe nodule post video-assisted thoracoscopy and wedge resection, hiatal hernia with Butler esophagus, diverticular disease, post breast lumpectomy, post left knee surgery. SOCIAL HISTORY: Prior history of tobacco abuse. Denies alcohol intake. FAMILY HISTORY: No family history of premature coronary artery disease. ALLERGIES: None reported. MEDICAL THERAPY CURRENTLY: Includes: 1. Acetaminophen 650 mg every 6 hours as needed. 2. Xanax 0.25 mg once a day. 3. Norvasc 10 mg once a day. 4. Vitamin C 500 mg once a day. 5. Tenormin 100 mg once a day. 6. Lipitor 20 mg once a day. 7. Dulcolax suppository as needed. 8. Calcium carbonate 650 mg once a day. 9. Colace 100 mg 3 times a day. 10. Subcutaneous heparin 5000 units twice a day. 11. Multivitamin 1 tablet once a day. 12. Zofran 4 mg IV push every 6 hours. 13. Oxycodone/Roxicodone 5 mg every 6 hours. 14. Oxycodone/Roxicodone 10 mg every 4 hours as needed. 15. Pantoprazole 40 mg once a day. 16. Zoloft 25 mg once a day. REVIEW OF SYSTEMS: Head and Neck: Denies headache, diplopia, blurring of vision. Respiratory: Reports intermittent cough without sputum production. Cardiovascular: As noted above. Gastrointestinal: Nausea and vomiting as noted above. Denies any abdominal discomfort, diarrhea, or constipation. Genitourinary: No symptoms reported. Musculoskeletal: No symptoms reported. Neurologic: No symptoms reported. PHYSICAL EXAMINATION: Vital Signs: Blood pressure 150/74 mmHg, pulse rate is 90 beats per minute. Head and Neck: Pupils equally react to light and accommodation. Extraocular muscles are intact. Anicteric sclerae. Negative JVD. No bruit appreciated. Chest: Diminished breath sounds at the bases bilaterally. Cardiovascular: S1, S2 regular. No murmurs, clicks, or gallops. Abdomen: Soft, benign. Normoactive bowel sounds. Extremities: Negative edema. Intact distal pulses. No calf tenderness. DIAGNOSTIC DATA: Electrocardiogram reveals sinus rhythm with nonspecific T-wave abnormality. Chest x-ray report was noted. CBC revealed a white cell count 5.7, hemoglobin 10.1, platelet count 273. Basic metabolic profile revealed sodium 136, potassium 3.8, BUN 15, creatinine 0.6, glucose 107. ASSESSMENT:1. Nausea, vomiting followed by dizziness/near syncope, clinical presentation is consistent with a vasovagal event. 2. Diastolic left ventricular dysfunction with class zero [place] Heart Association Classification left ventricular failure. 3. Hypertensive cardiovascular disease. 4. Hypercholesterolemia. 5. Post video-assisted thoracoscopy, robot-assisted right upper lobe/right middle lobe wedge resection, pneumolysis, embolectomy for malignant lung mass. 6. Anemia. RECOMMENDATIONS: 1. Continuation of Tenormin therapy. 2. Continuation of Norvasc therapy. 3. Continuation of Lipitor therapy. 4. Recommend initiation of aspirin therapy unless it is contraindicated. 5. No additional intervention is indicated for the above-noted clinical presentation unless symptoms recur and/or persist. Thank you for your kind referral. RHETT OSBORN M.D. [id number]
[2017-04-27] MEDS: oxyCODONE HCL 5 MG TABLET PO PRN ×2 (15:35→20:50)
[2017-04-27] MEDS: ATORVASTATIN CA 20 MG TABLET (FP) PO SCH (20:59)
[2017-04-28] MEDS: DOCUSATE SODIUM 100 MG CAPSULE (FP) PO SCH ×3 (06:14→21:24)
[2017-04-28] MEDS: oxyCODONE HCL 5 MG TABLET PO PRN ×4 (06:17→22:31)
--- NOTE | 2017-04-28 08:09 | PN ---
Progress Note, Physician Chief Complaint: in bed NAD VSS no new c.o no more dizziness or vomiting - Current Medication List Current Medications: Active Medications Acetaminophen (Tylenol -) 650 mg PO Q6H PRN PRN Reason: FEVER OR PAIN Last Admin: 04/27/17 10:54 Dose: 650 mg Acetaminophen (Tylenol -) 650 mg PO Q4H PRN PRN Reason: PAIN SCALE 6-10 Stop: 04/29/17 10:15 Alprazolam (Xanax -) 0.25 mg PO DAILY [facility] Last Admin: 04/27/17 09:12 Dose: 0.25 mg Amlodipine Besylate (Norvasc -) 10 mg PO DAILY [facility] Last Admin: 04/27/17 09:12 Dose: 10 mg Ascorbic Acid (Vitamin C -) 500 mg PO DAILY [facility] Last Admin: 04/27/17 09:11 Dose: 500 mg Atenolol (Tenormin -) 100 mg PO DAILY [facility] Last Admin: 04/27/17 09:11 Dose: 100 mg Atorvastatin Calcium (Lipitor -) 20 mg PO [facility] Last Admin: 04/27/17 20:59 Dose: 20 mg Bisacodyl (Dulcolax Suppository -) 10 mg RC DAILY PRN PRN Reason: CONSTIPATION Calcium Carbonate (Calcium Carbonate -) 650 mg PO DAILY PRN PRN Reason: GAS Docusate Sodium (Colace -) 100 mg PO TID [facility] Last Admin: 04/28/17 06:14 Dose: 100 mg Heparin Sodium (Porcine) (Heparin -) 5,000 unit SQ BID [facility] Last Admin: 04/27/17 20:59 Dose: 5,000 unit Multivitamins/Minerals/Vitamin C (Tab-A-Vit -) 1 tab PO DAILY [facility] Last Admin: 04/27/17 09:12 Dose: 1 tab Ondansetron HCl (Zofran Injection) 4 mg IVPUSH Q6H PRN PRN Reason: NAUSEA AND/OR VOMITING Oxycodone HCl (Roxicodone -) 5 mg PO Q6H PRN PRN Reason: PAIN LEVEL 1-5 Last Admin: 04/28/17 06:17 Dose: 5 mg Oxycodone HCl (Roxicodone -) 10 mg PO Q4H PRN PRN Reason: PAIN SCALE 6-10 Last Admin: 12/02/17 20:50 Dose: 10 mg Pantoprazole Sodium (Protonix -) 40 mg PO DAILY [facility] Last Admin: 04/27/17 09:11 Dose: 40 mg Sertraline HCl (Zoloft -) 25 mg PO DAILY [facility] Last Admin: 04/27/17 09:13 Dose: 25 mg - Objective Vital Signs: Vital Signs Temperature 99.0 F 04/28/17 06:00 Pulse Rate 91 H 04/28/17 06:00 Respiratory Rate 18 04/28/17 06:00 Blood Pressure 157/72 04/28/17 06:00 O2 Sat by Pulse Oximetry (%) 95 04/27/17 09:00 Constitutional: Yes: No Distress, Calm Eyes: Yes: Conjunctiva Clear HENT: Yes: Atraumatic Neck: Yes: Supple Cardiovascular: Yes: Regular Rate and Rhythm Respiratory: Yes: CTA Bilaterally Gastrointestinal: Yes: Soft. No: Distention Genitourinary: No: CVA Tenderness - Left, CVA Tenderness - Right Musculoskeletal: No: Joint Stiffness, Joint Swelling Extremities: No: Cold, Cool Edema: No Integumentary: No: Rash, Venous Stasis Changes Neurological: Yes: WNL, Alert, Oriented ...Motor Strength: WNL Psychiatric: Yes: WNL, Alert, Oriented. No: Agitated Labs: CBC, BMP 04/27/17 06:00 04/27/17 06:00 - ....Imaging Other: Report Reviewed Assessment/Plan 76 y/o F with PMH HTN, depression, GERD, thyroid nodules, arthritis, degenerative disc dz, former smoker, s/p robotic right middle lobe wedge resection, apical rul wedge resection for R lung mass. PMH: HTN, depression, GERD, thyroid nodules x2, arthritis, degenerative disc dz , scoliosis pain meds prn CT surgery f/u and pulmonary f/u presyncope: most likely vasovagal - cardiology eval; telemtry; CEx3 falls pfx will need home O2 per pre and post f/u labs and CXR falls DVT PFX path and cx d/w pt upper lobe + for adenoCA advised to see heme onc dr Matthews as outpt and CT sx and pulmonary drs d/w pt and staff DC planning per surgery and CM
--- NOTE | 2017-04-28 08:35 | EKG ---
Test Reason : Blood Pressure : / mmHG Vent. Rate : 075 BPM Atrial Rate : 075 BPM P-R Int : 184 ms QRS Dur : 082 ms QT Int : 398 ms P-R-T Axes : 049 -07 045 degrees QTc Int : 444 ms NORMAL SINUS RHYTHM MODERATE VOLTAGE CRITERIA FOR LVH, MAY BE NORMAL VARIANT CANNOT RULE OUT SEPTAL INFARCT (CITED ON OR BEFORE 16-MAR-2013) ABNORMAL ECG WHEN COMPARED WITH ECG OF 16-MAR-2013 20:41, QUESTIONABLE CHANGE IN INITIAL FORCES OF SEPTAL LEADS Confirmed by ALY SOLER, MARIOLA ([id number]) on 04/28/2017 8:34:57 AM Referred By: Scot Jiménez Confirmed By:MARIOLA LU MD
--- NOTE | 2017-04-28 08:48 | PN ---
Progress Note (short form) - Note Progress Note: Chief Complaint: Events noted, notes reviewed, denies any recurrent dizziness, near syncope or syncope, reports persistent incisional chest discomfort which is exacerbated by cough and deep inspiration, denies dyspnea History of Present Illness: Seen and examined on telemetry. Events noted, notes reviewed, denies any recurrent dizziness, near syncope or syncope, reports persistent incisional chest discomfort which is exacerbated by cough and deep inspiration, denies dyspnea - Current Medication List Current Medications Acetaminophen (Tylenol -) 650 mg PO Q6H PRN PRN Reason: FEVER OR PAIN Last Admin: 04/27/17 10:54 Dose: 650 mg Acetaminophen (Tylenol -) 650 mg PO Q4H PRN PRN Reason: PAIN SCALE 6-10 Stop: 04/29/17 10:15 Alprazolam (Xanax -) 0.25 mg PO DAILY [facility] Last Admin: 04/27/17 09:12 Dose: 0.25 mg Amlodipine Besylate (Norvasc -) 10 mg PO DAILY [facility] Last Admin: 04/27/17 09:12 Dose: 10 mg Ascorbic Acid (Vitamin C -) 500 mg PO DAILY [facility] Last Admin: 04/27/17 09:11 Dose: 500 mg Atenolol (Tenormin -) 100 mg PO DAILY [facility] Last Admin: 04/27/17 09:11 Dose: 100 mg Atorvastatin Calcium (Lipitor -) 20 mg PO HS [facility] Last Admin: 04/27/17 20:59 Dose: 20 mg Bisacodyl (Dulcolax Suppository -) 10 mg RC DAILY PRN PRN Reason: CONSTIPATION Calcium Carbonate (Calcium Carbonate -) 650 mg PO DAILY PRN PRN Reason: GAS Docusate Sodium (Colace -) 100 mg PO TID [facility] Last Admin: 04/28/17 06:14 Dose: 100 mg Heparin Sodium (Porcine) (Heparin -) 5,000 unit SQ BID [facility] Last Admin: 04/27/17 20:59 Dose: 5,000 unit Multivitamins/Minerals/Vitamin C (Tab-A-Vit -) 1 tab PO DAILY [facility] Last Admin: 04/27/17 09:12 Dose: 1 tab Ondansetron HCl (Zofran Injection) 4 mg IVPUSH Q6H PRN PRN Reason: NAUSEA AND/OR VOMITING Oxycodone HCl (Roxicodone -) 10 mg PO Q4H PRN PRN Reason: PAIN SCALE 6-10 Last Admin: 04/27/17 20:50 Dose: 10 mg Pantoprazole Sodium (Protonix -) 40 mg PO DAILY [facility] Last Admin: 04/27/17 09:11 Dose: 40 mg Sertraline HCl (Zoloft -) 25 mg PO DAILY [facility] Last Admin: 04/27/17 09:13 Dose: 25 mg - Review of Systems Cardiovascular: As noted above Respiratory: As noted above Gastrointestinal: denies: Diarrhea, Constipation or Abdominal Pain Musculoskeletal: No symptoms reported Neurological: No symptoms reported - Objective Vital Signs: Last Vital Signs Temp Pulse Resp BP Pulse Ox 99.0 F 91 H 18 157/72 95 04/28/17 06:00 04/28/17 06:00 04/28/17 06:00 04/28/17 06:00 04/27/17 09:00 Intake & Output 04/25/17 04/26/17 04/27/17 04/28/17 23:59 23:59 23:59 23:59 Intake Total 6480 645 0867 0 Output Total 820 Balance 436 993 4942 0 Weight 198 lb 193 lb 5 oz 199 lb 4 oz 191 lb 7 oz Neck: Supple Negative JVD Cardiovascular: S1 S2 Regular Rate Rhythm Respiratory: Diminished breath sounds Bilaterally Gastrointestinal: Soft Benign Normal Bowel Sounds Ext: Negative Edema Labs: CBC, BMP 04/27/17 06:00 04/27/17 06:00 Hepatic Panel Total Bilirubin 0.8 mg/dL (0.2-1.0) D 04/26/17 05:00 AST 19 U/L (15-37) D 04/26/17 05:00 ALT 23 U/L (12-78) D 04/26/17 05:00 Alkaline Phosphatase 58 U/L (45-117) D 04/26/17 05:00 Albumin 2.7 g/dl (3.4-5.0) L D 04/26/17 05:00 Assessment/Plan ASSESSMENT: 1. Nausea/vomiting followed by dizziness/near syncope, clinical presentation is consistent with a vasovagal event 2. Diastolic LV dysfunction with class 0 NYHA classification LV failure 3. HTN 4. Hypercholesterolemia 5. Post VATS robot assisted right upper lobe/right middle lobe wedge resection, pneumolysis and bullectomy, malignant lung mass 6. Anemia PLAN: 1. Continue Atenolol therapy 2. Continue Amlodipine therapy 3. Continue Lipitor therapy 4. Recommend initiation of Aspirin therapy unless it is contraindicated 5. No additional intervention is indicated for the above-noted clinical presentation unless symptoms recur and D/C home as per the primary team Brett Crowe MD
[2017-04-28] MEDS: PANTOPRAZOLE 40 MG TABLET (FP) PO SCH (09:47)
[2017-04-28] MEDS: ALPRAZolam 0.25 MG TABLET PO SCH (09:47)
[2017-04-28] MEDS: amLODIPine BESYLATE 10 MG TABLET (FP) PO SCH (09:47)
[2017-04-28] MEDS: MULTIVITAMINS (DAILY MVI) TABLET (FP) PO SCH (09:47)
[2017-04-28] MEDS: SERTRALINE HCL 25 MG TABLET (FP) PO SCH (09:47)
[2017-04-28] MEDS: HEPARIN NA (PORCINE) 5,000 UNITS/ML 1ML VIAL SQ SCH ×2 (09:47→21:24)
[2017-04-28] MEDS: ASCORBIC ACID 500 MG TABLET (FP) PO SCH (09:47)
[2017-04-28] MEDS: ATENOLOL 50 MG TABLET (FP) PO SCH (09:47)
--- NOTE | 2017-04-28 10:56 | PN ---
Progress Note (short form) - Note Progress Note: reviewed charts, films, labs, vs. no major event o/n. afeb. CBC, BMP 04/27/17 06:00 04/27/17 06:00 Vital Signs (72 hours) 04/25/17 04/25/17 04/25/17 12:00 13:25 13:57 Temperature 98.9 F Pulse Rate 80 77 Respiratory 18 18 18 Rate Blood Pressure 160/70 161/72 158/72 O2 Sat by Pulse Oximetry (%) 04/25/17 04/25/17 04/25/17 16:00 18:00 19:52 Temperature 98.2 F 98.7 F Pulse Rate 73 Respiratory 18 20 18 Rate Blood Pressure 151/68 165/78 O2 Sat by Pulse 98 Oximetry (%) 04/25/17 04/26/17 04/26/17 22:00 00:00 02:00 Temperature 98.2 F Pulse Rate 65 74 77 Respiratory 20 19 18 Rate Blood Pressure 155/53 153/74 106/95 O2 Sat by Pulse Oximetry (%) 04/26/17 04/26/17 04/26/17 04:00 06:00 08:00 Temperature 99.2 F Pulse Rate 65 77 90 Respiratory 20 20 18 Rate Blood Pressure 113/81 140/73 158/67 O2 Sat by Pulse Oximetry (%) 04/26/17 04/26/17 04/26/17 09:00 10:00 10:48 Temperature 98.6 F Pulse Rate 91 H 100 H Respiratory 13 Rate Blood Pressure 135/69 O2 Sat by Pulse 97 97 Oximetry (%) 04/26/17 04/26/17 04/26/17 14:00 18:00 21:00 Temperature 98.1 F 98.5 F Pulse Rate 71 70 Respiratory 14 16 17 Rate Blood Pressure 121/62 131/67 O2 Sat by Pulse 98 Oximetry (%) 04/26/17 04/27/17 04/27/17 22:00 01:57 06:00 Temperature 98.6 F 99.0 F 98.9 F Pulse Rate 83 82 88 Respiratory 18 18 18 Rate Blood Pressure 136/67 143/57 158/72 O2 Sat by Pulse Oximetry (%) 04/27/17 04/27/17 04/27/17 09:00 10:00 13:47 Temperature 98.2 F Pulse Rate 85 75 Respiratory 18 18 18 Rate Blood Pressure 134/51 142/54 O2 Sat by Pulse 95 Oximetry (%) 04/27/17 04/28/17 04/28/17 18:35 01:59 06:00 Temperature 97.9 F 99.3 F 99.0 F Pulse Rate 80 91 H 91 H Respiratory 18 18 18 Rate Blood Pressure 154/62 130/56 157/72 O2 Sat by Pulse Oximetry (%) Vital Signs Temp 99.0 F 04/28/17 06:00 Pulse 91 H 04/28/17 06:00 Resp 18 04/28/17 06:00 BP 157/72 04/28/17 06:00 Pulse Ox 95 04/27/17 09:00 Intake & Output 04/27/17 04/27/17 04/28/17 11:59 23:59 11:59 Intake Total 1040 1805 0 Balance 1040 1805 0 Weight 90.378 kg 86.835 kg Intake: IV 900 385 LH #20 04/27/17 10 Normal Saline - 1,000 ml 900 375 @ 75 mls/hr IV ASDIR BERTA Rx#:[id number] Oral 140 1420 0 Other: Voiding Method Toilet Toilet Toilet # Unmeasured Voids Void 2 2 2 Weight Measurement Method Standing Scale Standing Scale a/p 76 yo, f, h/o lung nodules, s/p robotic-assisted rul/rml wedge resection, pneumolysis, bullectomy. stable clinically. 1. cont supp care, pain control 2. oob amb w pt, pulm toilet, chest pt, is x10/hr 3. f/u final path and cx 4. will follow
[2017-04-28] MEDS: ACETAMINOPHEN 325 MG TABLET (FP) PO PRN ×2 (11:15→22:31)
--- NOTE | 2017-04-28 12:56 | PN ---
Progress Note, Physician History of Present Illness: PULMONARY ALERT,C/O INCISIONAL CP,-SOB - Current Medication List Current Medications: Active Medications Acetaminophen (Tylenol -) 650 mg PO Q6H PRN PRN Reason: FEVER OR PAIN Last Admin: 04/28/17 11:15 Dose: 650 mg Acetaminophen (Tylenol -) 650 mg PO Q4H PRN PRN Reason: PAIN SCALE 6-10 Stop: 04/29/17 10:15 Alprazolam (Xanax -) 0.25 mg PO DAILY [facility] Last Admin: 04/28/17 09:47 Dose: 0.25 mg Amlodipine Besylate (Norvasc -) 10 mg PO DAILY [facility] Last Admin: 04/28/17 09:47 Dose: 10 mg Ascorbic Acid (Vitamin C -) 500 mg PO DAILY [facility] Last Admin: 04/28/17 09:47 Dose: 500 mg Atenolol (Tenormin -) 100 mg PO DAILY [facility] Last Admin: 04/28/17 09:47 Dose: 100 mg Atorvastatin Calcium (Lipitor -) 20 mg PO HS [facility] Last Admin: 04/27/17 20:59 Dose: 20 mg Bisacodyl (Dulcolax Suppository -) 10 mg RC DAILY PRN PRN Reason: CONSTIPATION Calcium Carbonate (Calcium Carbonate -) 650 mg PO DAILY PRN PRN Reason: GAS Docusate Sodium (Colace -) 100 mg PO TID [facility] Last Admin: 04/28/17 06:14 Dose: 100 mg Heparin Sodium (Porcine) (Heparin -) 5,000 unit SQ BID [facility] Last Admin: 04/28/17 09:47 Dose: 5,000 unit Multivitamins/Minerals/Vitamin C (Tab-A-Vit -) 1 tab PO DAILY [facility] Last Admin: 04/28/17 09:47 Dose: 1 tab Ondansetron HCl (Zofran Injection) 4 mg IVPUSH Q6H PRN PRN Reason: NAUSEA AND/OR VOMITING Oxycodone HCl (Roxicodone -) 10 mg PO Q4H PRN PRN Reason: PAIN SCALE 6-10 Last Admin: 04/28/17 12:37 Dose: 10 mg Pantoprazole Sodium (Protonix -) 40 mg PO DAILY [facility] Last Admin: 04/28/17 09:47 Dose: 40 mg Sertraline HCl (Zoloft -) 25 mg PO DAILY [facility] Last Admin: 04/28/17 09:47 Dose: 25 mg - Objective Vital Signs: Vital Signs Temperature 99.0 F 04/28/17 06:00 Pulse Rate 91 H 04/28/17 06:00 Respiratory Rate 18 04/28/17 09:00 Blood Pressure 157/72 04/28/17 06:00 O2 Sat by Pulse Oximetry (%) 95 04/28/17 09:00 Constitutional: Yes: Well Nourished, Calm Eyes: Yes: WNL HENT: Yes: WNL Neck: Yes: WNL Cardiovascular: Yes: Regular Rate and Rhythm, S1, S2 Respiratory: Yes: Diminished Gastrointestinal: Yes: Normal Bowel Sounds, Soft Extremities: Yes: WNL Edema: No Labs: CBC, BMP 04/27/17 06:00 04/27/17 06:00 Problem List - Problems (2) HLD (hyperlipidemia) Code(s): E78.5 - HYPERLIPIDEMIA, UNSPECIFIED (3) HTN (hypertension) Code(s): I10 - ESSENTIAL (PRIMARY) HYPERTENSION (4) Lung nodule Code(s): R91.1 - SOLITARY PULMONARY NODULE Assessment/Plan ASSESSMENT AND PLAN: Lung Nodules +caseating granuloma s/p Robotic RML/RUL wedge resections HTN Hypercholesterolemia Depression - pain control - incentive spirometry - PO as tolerated - DVT prophylaxis DR SHEIKH
[2017-04-28] MEDS: ATORVASTATIN CA 20 MG TABLET (FP) PO SCH (21:24)
[2017-04-29] MEDS: DOCUSATE SODIUM 100 MG CAPSULE (FP) PO SCH (07:12)
[2017-04-29] MEDS: oxyCODONE HCL 5 MG TABLET PO PRN (07:13)
[2017-04-29] MEDS ORDERED: PT OWN MED DRAWER 7, Y5N ONE (09:17)
[2017-04-29] MEDS: amLODIPine BESYLATE 10 MG TABLET (FP) PO SCH (09:31)
[2017-04-29] MEDS: HEPARIN NA (PORCINE) 5,000 UNITS/ML 1ML VIAL SQ SCH (09:31)
[2017-04-29] MEDS: MULTIVITAMINS (DAILY MVI) TABLET (FP) PO SCH (09:31)
[2017-04-29] MEDS: PANTOPRAZOLE 40 MG TABLET (FP) PO SCH (09:31)
[2017-04-29] MEDS: SERTRALINE HCL 25 MG TABLET (FP) PO SCH (09:31)
[2017-04-29] MEDS: ACETAMINOPHEN 325 MG TABLET (FP) PO PRN (09:31)
[2017-04-29] MEDS: ASCORBIC ACID 500 MG TABLET (FP) PO SCH (09:31)
[2017-04-29] MEDS: ATENOLOL 50 MG TABLET (FP) PO SCH (09:31)
[2017-04-29] MEDS: ALPRAZolam 0.25 MG TABLET PO SCH (09:32)
[2017-04-29] MEDS ORDERED: ASPIRIN COATED 81 MG TABLET.EC PO SCH (10:00)
--- NOTE | 2017-04-29 10:27 | PN ---
Progress Note, Physician Chief Complaint: in bed NAD afebrile VSS no c/o wants to go home not to SNF, d/w CM to have home VNS pre and post repeated and pt does not need home O2 d/w pt the follow up she needs - Current Medication List Current Medications: Active Medications Acetaminophen (Tylenol -) 650 mg PO Q6H PRN PRN Reason: FEVER OR PAIN Last Admin: 04/29/17 09:31 Dose: 650 mg Alprazolam (Xanax -) 0.25 mg PO DAILY [facility] Last Admin: 04/29/17 09:32 Dose: 0.25 mg Amlodipine Besylate (Norvasc -) 10 mg PO DAILY [facility] Last Admin: 04/29/17 09:31 Dose: 10 mg Ascorbic Acid (Vitamin C -) 500 mg PO DAILY [facility] Last Admin: 04/29/17 09:31 Dose: 500 mg Aspirin (Ecotrin -) 81 mg PO DAILY [facility] Last Admin: 04/29/17 09:30 Dose: 81 mg Atenolol (Tenormin -) 100 mg PO DAILY [facility] Last Admin: 04/29/17 09:31 Dose: 100 mg Atorvastatin Calcium (Lipitor -) 20 mg PO HS [facility] Last Admin: 04/28/17 21:24 Dose: 20 mg Bisacodyl (Dulcolax Suppository -) 10 mg RC DAILY PRN PRN Reason: CONSTIPATION Calcium Carbonate (Calcium Carbonate -) 650 mg PO DAILY PRN PRN Reason: GAS Docusate Sodium (Colace -) 100 mg PO TID [facility] Last Admin: 04/29/17 07:12 Dose: 100 mg Heparin Sodium (Porcine) (Heparin -) 5,000 unit SQ BID [facility] Last Admin: 04/29/17 09:31 Dose: 5,000 unit Multivitamins/Minerals/Vitamin C (Tab-A-Vit -) 1 tab PO DAILY [facility] Last Admin: 04/29/17 09:31 Dose: 1 tab Ondansetron HCl (Zofran Injection) 4 mg IVPUSH Q6H PRN PRN Reason: NAUSEA AND/OR VOMITING Pantoprazole Sodium (Protonix -) 40 mg PO DAILY [facility] Last Admin: 04/29/17 09:31 Dose: 40 mg Sertraline HCl (Zoloft -) 25 mg PO DAILY [facility] Last Admin: 12/04/17 09:31 Dose: 25 mg - Objective Vital Signs: Vital Signs Temperature 98.4 F 04/29/17 06:00 Pulse Rate 77 04/29/17 06:00 Respiratory Rate 18 04/29/17 06:00 Blood Pressure 153/77 04/29/17 06:00 O2 Sat by Pulse Oximetry (%) 95 04/28/17 21:00 Constitutional: Yes: No Distress, Calm Eyes: Yes: Conjunctiva Clear HENT: Yes: Atraumatic Neck: Yes: Supple Cardiovascular: Yes: Regular Rate and Rhythm Respiratory: Yes: CTA Bilaterally Gastrointestinal: Yes: Soft. No: Distention, Tenderness Genitourinary: No: CVA Tenderness - Left, CVA Tenderness - Right, Hematuria Musculoskeletal: No: Joint Stiffness, Joint Swelling Extremities: No: Cold, Cool, Cyanosis Edema: No Integumentary: No: Rash, Venous Stasis Changes Neurological: Yes: WNL, Alert, Oriented ...Motor Strength: WNL Psychiatric: Yes: WNL, Alert, Oriented. No: Agitated, Suicidal Ideation Labs: CBC, BMP 04/27/17 06:00 04/27/17 06:00 - ....Imaging Other: Report Reviewed Assessment/Plan 76 y/o F with PMH HTN, depression, GERD, thyroid nodules, arthritis, degenerative disc dz, former smoker, s/p robotic right middle lobe wedge resection, apical rul wedge resection for R lung mass. RUL mass c/w adenoCA CT surgery f/u and pulmonary f/u outpt falls pfx will need home O2 per pre and post f/u labs and CXR falls DVT PFX path and cx d/w pt upper lobe + for adenoCA advised to see heme onc dr Matthews as outpt and CT sx and pulmonary drs d/w pt and staff DC planning per surgery and CM d/w pt and CM DC home with VNS
[2017-04-29 10:31] VITALS: BP 154/73; TEMP 98.6
[2017-04-29 11:43] VITALS: PULSE 92
--- NOTE | 2017-04-29 12:10 | PN ---
Progress Note, Physician Chief Complaint: Events noted Not in distress History of Present Illness: Patient was seen and examined. Awake and alert. Chart was reviewed Denies chest pain, SOB or palpitations - Current Medication List Current Medications: Active Medications Acetaminophen (Tylenol -) 650 mg PO Q6H PRN PRN Reason: FEVER OR PAIN Last Admin: 04/29/17 09:31 Dose: 650 mg Alprazolam (Xanax -) 0.25 mg PO DAILY [facility] Last Admin: 04/29/17 09:32 Dose: 0.25 mg Amlodipine Besylate (Norvasc -) 10 mg PO DAILY [facility] Last Admin: 04/29/17 09:31 Dose: 10 mg Ascorbic Acid (Vitamin C -) 500 mg PO DAILY [facility] Last Admin: 04/29/17 09:31 Dose: 500 mg Aspirin (Ecotrin -) 81 mg PO DAILY [facility] Last Admin: 04/29/17 09:30 Dose: 81 mg Atenolol (Tenormin -) 100 mg PO DAILY [facility] Last Admin: 04/29/17 09:31 Dose: 100 mg Atorvastatin Calcium (Lipitor -) 20 mg PO HS [facility] Last Admin: 04/28/17 21:24 Dose: 20 mg Bisacodyl (Dulcolax Suppository -) 10 mg RC DAILY PRN PRN Reason: CONSTIPATION Calcium Carbonate (Calcium Carbonate -) 650 mg PO DAILY PRN PRN Reason: GAS Docusate Sodium (Colace -) 100 mg PO TID [facility] Last Admin: 04/29/17 07:12 Dose: 100 mg Heparin Sodium (Porcine) (Heparin -) 5,000 unit SQ BID [facility] Last Admin: 04/29/17 09:31 Dose: 5,000 unit Multivitamins/Minerals/Vitamin C (Tab-A-Vit -) 1 tab PO DAILY [facility] Last Admin: 04/29/17 09:31 Dose: 1 tab Ondansetron HCl (Zofran Injection) 4 mg IVPUSH Q6H PRN PRN Reason: NAUSEA AND/OR VOMITING Pantoprazole Sodium (Protonix -) 40 mg PO DAILY [facility] Last Admin: 04/29/17 09:31 Dose: 40 mg Sertraline HCl (Zoloft -) 25 mg PO DAILY [facility] Last Admin: 04/29/17 09:31 Dose: 25 mg - Objective Vital Signs: Vital Signs Temperature 98.6 F 04/29/17 10:00 Pulse Rate 92 H 04/29/17 11:42 Respiratory Rate 20 04/29/17 10:00 Blood Pressure 154/73 04/29/17 10:00 O2 Sat by Pulse Oximetry (%) 93 L 04/29/17 11:42 Eyes: Yes: PERRL HENT: Yes: Atraumatic Neck: Yes: Supple Cardiovascular: Yes: Regular Rate and Rhythm, S1, S2 Respiratory: Yes: Diminished Gastrointestinal: Yes: Normal Bowel Sounds, Soft. No: Tenderness Edema: No Problem List - Problems (1) HLD (hyperlipidemia) Code(s): E78.5 - HYPERLIPIDEMIA, UNSPECIFIED (2) HTN (hypertension) Code(s): I10 - ESSENTIAL (PRIMARY) HYPERTENSION Assessment/Plan 1. Nausea/vomiting followed by dizziness/near syncope, clinical presentation is consistent with a vasovagal event 2. Diastolic LV dysfunction with class 0 NYHA classification LV failure 3. HTN 4. Hypercholesterolemia 5. Post VATS robot assisted right upper lobe/right middle lobe wedge resection, pneumolysis and bullectomy, malignant lung mass 6. Anemia PLAN: 1. Continue Atenolol and Amlodipine 2. Continue Lipitor 3. Aspirin unless it is contraindicated 4. No additional intervention is indicated for the above-noted clinical presentation unless symptoms recur and discharge home Donavon Palma MD
== END 2017-04-29 14:31 | disposition home or self-care (01) | DRG 164 ==
LOC: JSAMEDAYSX 09:15 → EDSTATUS 10:30 → JICU 18:00 → J5S 04-26 16:23 → J4S 04-26 20:06
PROVIDERS: ADMIT Internal Medicine; ATTEND Internal Medicine
PROC: 8E0W4CZ Robotic Assisted Procedure of Trunk Region, Percutaneous Endoscopic Approach (ICD-10-PCS; 2017-04-23)
PROC: 0BJ08ZZ Inspection of Tracheobronchial Tree, Via Natural or Artificial Opening Endoscopic (ICD-10-PCS; 2017-04-23)
PROC: 0BTD0ZZ Resection of Right Middle Lung Lobe, Open Approach (ICD-10-PCS; principal; 2017-04-23 10:30)
PROC: 0BTC0ZZ Resection of Right Upper Lung Lobe, Open Approach (ICD-10-PCS; 2017-04-23 10:30)
PROC: 0BND4ZZ Release Right Middle Lung Lobe, Percutaneous Endoscopic Approach (ICD-10-PCS; 2017-04-23 10:30)
DX: C34.11 Malignant neoplasm of upper lobe, right bronchus or lung (principal); J93.9 Pneumothorax, unspecified; J98.11 Atelectasis; Z87.891 Personal history of nicotine dependence; E78.5 Hyperlipidemia, unspecified; I10 Essential (primary) hypertension; K21.9 Gastro-esophageal reflux disease without esophagitis; F32.9 Major depressive disorder, single episode, unspecified; R55 Syncope and collapse; R42 Dizziness and giddiness; D64.9 Anemia, unspecified; R91.1 Solitary pulmonary nodule
CPT/HCPCS: 36415; 71010-TC; 74000-TC; 80048; 80053; 82550; 83735; 84100; 84443; 84484; 85025; 85027; 86850; 86900; 86901; 87070; 87075; 87205; 88307-TC; 88312-TC; 88331-TC; 88342-TC; 93005; 93010; 94010; 94760; 94761; 97116-GP; 97161-GP; J1644

== ENCOUNTER 2018-05-08 14:58 | Emergency (ER) | payer OTHER ==
[2018-05-08 15:05] VITALS: BMI 34.7
--- NOTE | 2018-05-08 16:07 | PDOC ---
History of Present Illness - History of Present Illness Initial Comments: 05/08/18 15:55 77 yo F with h/o HLD, HTN, lung malignancy s/p R middle lobe resection, VATS, diastolic LV dysfunction, who p/w epigastric pain. Patient reports two days of worsening, crampy, intermittent epigastria abdominal pain. Worse with PO intake. Endorses two days of multiple non bloody, non bilious emesis, and loose stools, with absent BPR. Denies OTC symptom control. Denies recent travels or sick contacts. Patient denies N/V, F,C, CP, SOB, urinary complaints, abdominal pain, diarrhea, constipation, lightheadedness, weakness, sensory changes. PMHx: as noted above. Denies h/o adbominal surgery. Denies h/o abnml colonoscopies. Denies h/o stent placement, CABG, abnml stress testing. ROS: as noted SHx: Denies Etoh, IVDA. Distant smoking history. Allergies: NKDA <Judah Tanner - Last Filed: 05/08/18 23:30> <Anival Goncalves - Last Filed: 05/09/18 02:23> - General Chief Complaint: Nausea/Vomiting Stated Complaint: PCP SENT Time Seen by Provider: 05/08/18 15:38 Past History - Past Medical History Anemia: No Asthma: No Cancer: No Cardiac Disorders: No CVA: No COPD: No CHF: No Dementia: No Diabetes: No GI Disorders: Yes (GERD) Disorders: No HTN: Yes Hypercholesterolemia: Yes Liver Disease: No Seizures: No Thyroid Disease: No - Surgical History Orthopedic Surgery: Yes (CARPAL TUNNEL-RIGHT,MISTI TIGGER FINGER) - Immunization History Immunization Up to Date: Yes - Suicide/Smoking/Psychosocial Hx Smoking Status: No Smoking History: Former smoker Have you smoked in the past 12 months: No Number of Cigarettes Smoked Daily: 0 If you are a former smoker, when did you quit?: 27YR Information on smoking cessation initiated: No Hx Alcohol Use: No Drug/Substance Use Hx: No Substance Use Type: None Hx Substance Use Treatment: No <Judah Tanner - Last Filed: 05/08/18 23:30> <Anival oGncalves - Last Filed: 05/09/18 02:23> - Past Medical History Allergies/Adverse Reactions: Allergies Allergy/AdvReac Type Severity Reaction Status Date / Time No Known Allergies Allergy Verified 04/22/17 10:42 Home Medications: Ambulatory Orders Amlodipine Besylate 10 mg PO DAILY 04/22/17 Atenolol [Tenormin -] 100 mg PO DAILY 04/22/17 Omeprazole [Prilosec (RX)] 40 mg PO DAILY 04/22/17 Pravastatin Sodium [Pravachol -] 80 mg PO DAILY 04/23/17 Sertraline HCl [Zoloft -] 100 mg PO DAILY 04/23/17 Aspirin Coated [Ecotrin -] 81 mg PO DAILY tablet.ec 04/29/17 Review of Systems - Review of Systems Comments:: 05/08/18 16:08 GENERAL/CONSTITUTIONAL: No fever or chills. No weakness. HEAD, EYES, EARS, NOSE AND THROAT: No change in vision. No ear pain or discharge. No sore throat. CARDIOVASCULAR: No chest pain or shortness of breath RESPIRATORY: No cough, wheezing, or hemoptysis. GASTROINTESTINAL: + abdominal pain, nausea, vomiting, diarrhea. No constipation. GENITOURINARY: No dysuria, frequency, or change in urination. MUSCULOSKELETAL: No joint or muscle swelling or pain. No neck or back pain. SKIN: No rash NEUROLOGIC: No headache, vertigo, loss of consciousness, or change in strength/ sensation. ENDOCRINE: No increased thirst. No abnormal weight change HEMATOLOGIC/LYMPHATIC: No anemia, easy bleeding, or history of blood clots. ALLERGIC/IMMUNOLOGIC: No hives or skin allergy. = <Judah Tanner - Last Filed: 05/08/18 23:30> *Physical Exam - Vital Signs Last Vital Signs Temp Pulse Resp BP Pulse Ox 98.0 F 90 16 183/101 H 93 L 05/08/18 15:02 05/08/18 15:02 05/08/18 15:02 05/08/18 15:02 05/08/18 15:02 - Physical Exam Comments: 05/08/18 16:08 GENERAL: Awake, alert, and fully oriented, in no acute distress HEAD: No signs of trauma, normocephalic, atraumatic EYES: PERRLA, EOMI, sclera anicteric, conjunctiva clear ENT: + Dry mucous membranes. Hearing grossly normal, nares patent, oropharynx clear without exudates. NECK: Normal ROM, supple, no lymphadenopathy, JVD, or masses LUNGS: No distress, speaks full sentences, clear to auscultation bilaterally HEART: Regular rate and rhythm, normal S1 and S2, no murmurs, rubs or gallops, peripheral pulses normal and equal bilaterally. ABDOMEN: + Epigastric ttp. Soft, NDS, normoactive bowel sounds. No guarding, no rebound. No masses. Neg CVA ttp. EXTREMITIES : Normal inspection, Normal range of motion, no edema. No clubbing or cyanosis. SKIN: Warm, Dry, normal turgor, no rashes or lesions noted <Judah Tanner - Last Filed: 05/08/18 23:30> - Vital Signs Last Vital Signs Temp Pulse Resp BP Pulse Ox 98.3 F 83 20 184/93 H 95 05/09/18 02:20 05/09/18 02:20 05/09/18 02:20 05/09/18 02:20 05/09/18 02:20 <Anival Goncalves - Last Filed: 05/09/18 02:23> Moderate Sedation - Procedure Monitoring Vital Signs: Procedure Monitoring Vital Signs Temperature 98.0 F 05/08/18 15:02 Pulse Rate 90 05/08/18 15:02 Respiratory Rate 16 05/08/18 15:02 Blood Pressure 183/101 H 05/08/18 15:02 O2 Sat by Pulse Oximetry (%) 93 L 05/08/18 15:02 <Judah Tanner - Last Filed: 05/08/18 23:30> - Procedure Monitoring Vital Signs: Procedure Monitoring Vital Signs Temperature 98.3 F 05/09/18 02:20 Pulse Rate 83 05/09/18 02:20 Respiratory Rate 20 05/09/18 02:20 Blood Pressure 184/93 H 05/09/18 02:20 O2 Sat by Pulse Oximetry (%) 95 05/09/18 02:20 <Anival Goncalves - Last Filed: 05/09/18 02:23> Heart Score/ECG Review - History History: Slightly suspicious - Electrocardiogram EKG: Normal - Age Age: >/= 65 - Risk Factors Risk Factors Heart Score: Yes Hx Hypercholesterolemia, Yes Hx Hypertension, Yes Positive family hx of cardiac disease, Yes Hx Obesity Based on the list above the patient has:: >/=3 risk factors or Hx atherosclerotic disease - Troponin Troponin: </= normal limit - Score Heart Score - Total: 4 <Judah Tanner - Last Filed: 05/08/18 23:30> ED Treatment Course - LABORATORY CBC & Chemistry Diagram: 05/08/18 16:00 05/08/18 16:00 <Judah Tanner - Last Filed: 05/08/18 23:30> - LABORATORY CBC & Chemistry Diagram: 05/08/18 16:00 05/08/18 16:00 - ADDITIONAL ORDERS Additional order review: Laboratory Results 05/09/18 05/08/18 00:00 16:00 Sodium 132 L Potassium 3.9 Chloride 93 L Carbon Dioxide 28 Anion Gap 11 BUN 14 Creatinine 0.9 Creat Clearance w eGFR > 60 Random Glucose 108 H Calcium 10.1 Total Bilirubin 0.6 AST 24 ALT 28 Alkaline Phosphatase 93 Creatine Kinase 44 41 Troponin I 0.03 0.02 Total Protein 7.7 Albumin 3.9 Lipase 105 05/08/18 16:00 RBC 4.23 MCV 92.3 MCHC 35.7 RDW 13.2 MPV 8.3 Neutrophils % 78.6 D Lymphocytes % 15.2 D Monocytes % 6.0 Eosinophils % 0.1 D Basophils % 0.1 - Medications Given in the ED: ED Medications Discontinued Medications Generic Name Dose Route Start Last Admin Trade Name Javi PRN Reason Stop Dose Admin Acetaminophen 1,000 mg 05/08/18 20:22 05/08/18 21:27 Ofirmev Injection - IVPB 05/08/18 20:23 1,000 mg ONCE ONE Administration Al Hydroxide/Mg Hydroxide 30 ml 05/08/18 16:21 05/08/18 16:39 Mylanta Oral Suspension - PO 05/08/18 16:22 30 ml ONCE ONE Administration Famotidine/Sodium Chloride 20 mg in 50 mls @ 100 mls/hr 05/08/18 16:21 16:38 Pepcid 20 Mg Premixed Ivpb - IVPB 05/08/18 16:50 100 mls/hr ONCE ONE Administration Sodium Chloride 1,000 mls @ 1,000 mls/hr 05/08/18 16:21 05/08/18 16:38 Normal Saline - IV 05/08/18 17:20 1,000 mls/hr ASDIR STA Administration Ondansetron HCl 4 mg 05/08/18 16:21 05/08/18 16:38 Zofran Injection IVPB 05/08/18 16:22 4 mg ONCE ONE Administration Sucralfate 1 gm 05/08/18 16:21 05/08/18 16:39 Carafate - PO 05/08/18 16:22 1 gm ONCE ONE Administration <Anival Goncalves - Last Filed: 05/09/18 02:23> Medical Decision Making - Medical Decision Making 05/08/18 16:25 77 yo F with h/o HLD, HTN, lung malignancy post VATS, diastolic LV dysfunction, who p/w epigastric pain. BP 183/101, 93 % O2 RA, A&O3. + Midabdominal/ epigastric ttp. Will consider SBO, gastroenteritis, esophagitis, gastritis, pancreatitis, mesenteric ischemia, PUD, colitis. Low suspicion pyelonephritis, appendicitis, AAA, Ao dissection. ED Course: CBC,CMP,LIPASE, CARDIAC IA EKG, CT AP MALOOX, CARAFATE, NS, FAMOTIDINE 05/08/18 16:45 EKG: NSR with PVC's. Nml interval duration and axis. + LVH.Absent Q waves, ELIZ, STD. Nml R wave progression. 05/08/18 17:32 CBC,CMP: Unremarkable Trop: Neg 05/08/18 20:22 Patient with cont'd pain Tylenol [address] AP: Moderate to large hiatal hernia. Otherwise unremarkable. 05/08/18 23:[address] Janette suarez by Dr. Goncalves Heart score 4 Serial troponins and dispo <Judah Tanner - Last Filed: 05/08/18 23:30> *DC/Admit/Observation/Transfer - Attestations Physician Attestion: 05/08/18 16:46 I attest to the information provided in this note. <Judah Tanner - Last Filed: 05/08/18 23:30> <Anival Goncalves - Last Filed: 05/09/18 02:23> Diagnosis at time of Disposition: Epigastric abdominal pain Diarrhea Qualifiers: Diarrhea type: unspecified type Qualified Code(s): R19.7 - Diarrhea, unspecified - Discharge Dispostion Disposition: HOME Condition at time of disposition: Stable - Referrals Referrals: Janette Suarez [Primary Care Provider] - - Patient Instructions Printed Discharge Instructions: DI for Vomiting -- Adult, DI for Abdominal Pain -Adult Additional Instructions: Please take Zantac-150 mg orally at night. Follow-up with your info analyst. Please return to the emergency department with any new or worsening symptoms or concerns. Please follow up with your primary care physician within 72 hours. - Post Discharge Activity
[2018-05-08] MEDS ORDERED: SODIUM CHLORIDE 1,000 ML IV STA (16:21)
[2018-05-08] MEDS ORDERED: FAMOTIDINE 20 MG/50 ML IVPB 20 MG/50 ML MG IVPB ONE ×2 (16:21→16:27)
[2018-05-08] MEDS ORDERED: MAG HYDROX/AL HYDROX/SIMETH 30 ML UNIT-DOSE CUP PO ONE (16:21)
[2018-05-08] MEDS ORDERED: SUCRALFATE 1 GM TABLET (FP) PO ONE (16:21)
[2018-05-08] MEDS ORDERED: ONDANSETRON 4 MG/2 ML VIAL IVPB ONE (16:21)
[2018-05-08] MEDS ORDERED: SUCRALFATE 1 GM TABLET (FP) ONE (16:26)
[2018-05-08] MEDS ORDERED: ONDANSETRON 4 MG/2 ML VIAL ONE (16:26)
[2018-05-08] MEDS ORDERED: MAG HYDROX/AL HYDROX/SIMETH 30 ML UNIT-DOSE CUP ONE (16:26)
--- NOTE | 2018-05-08 16:27 | PDOC ---
Attending Attestation - HPI HPI: 05/08/18 17:17 The patient is a 77 year old female, with a significant PMH of hyperlipidemia, hypertension, lung malignancy s/p right middle lobe resection, VATS, diastolic LV dysfunction, who presents to the emergency department with 2 days of intermittent epigastric abdominal pain. The patient also endorses two days of multiple episodes of nausea with emesis (non bloody non bilious) and diarrhea ( non bloody). The patient denies any recent sick contacts or travel. The patient denies chest pain, shortness of breath, headache and dizziness. Denies fever, chills and constipation. Denies dysuria, frequency, urgency and hematuria. Allergies: NKDA Documentation prepared by Shaheed Meade, acting as medical consultant for Anival Goncalves MD. <Shaheed Meade - Last Filed: 05/08/18 17:17> - Resident Resident Name: Judah Tanner - ED Attending Attestation I have performed the following: I have examined & evaluated the patient, The case was reviewed & discussed with the resident, I agree w/resident's findings & plan, Exceptions are as noted - Physicial Exam PE: 05/08/18 20:59 Patient is awake and alert, well-nourished, in no distress Normocephalic and atraumatic PERRLA, EOMI, no scleral icterus mm-dry CTA RRR Abdomen is soft, nondistended, minimal epigastric discomfort to deep palpation without guarding rebound; no CVA tenderness - Medical Decision Making 05/08/18 21:00 77-year-old female with history of hypertension presents with epigastric discomfort associated with several episodes of nonbloody nonbilious vomiting and loose watery stools. Differential diagnoses includes bowel ischemia versus acute gastroenteritis versus colitis. Will hydrate, we'll obtain CBC/CMP. Will obtain CT with by mouth contrast. Will reassess. 05/09/18 00:33 Patient is resting comfortably, pain free, tolerates by mouth. CT that and pelvis reveals large hiatal hernia but no evidence of acute intra-abdominal pathology. CBC/CMP within normal limit. Will obtain second set of cardiac enzymes and if negative will discharge with outpatient follow-up. Case discussed with Dr. Harrison who agrees with the plan of care. 05/09/18 02:22 Second set of cardiac enzymes is within normal limit. Patient's hypertension minimally improved. Patient advised to take her antihypertensive as prescribed. No indication for treatment of hypertensive emergency or urgency at this time. Will discharge. <Anival Goncalves - Last Filed: 05/09/18 02:22>
[2018-05-08 17:22] LABS: BASO % 0.1 % (0-2.0); EOS % 0.1 % (0-4.5); HEMATOCRIT 39.1 % (32.4-45.2); HEMOGLOBIN 13.9 GM/dL (10.7-15.3); LYMPH % 15.2 % (8-40); MCH 32.9 pg (25.7-33.7); MCHC 35.7 g/dl (32.0-36.0); MEAN CELL VOLUME 92.3 fl (80-96); MEAN PLT VOLUME 8.3 fl (7.5-11.1); NEUT % 78.6 % (42.8-82.8); PLATELET COUNT 384 K/MM3 (134-434); RBC 4.23 M/mm3 (3.60-5.2); RDW 13.2 % (11.6-15.6); WHITE BLOOD COUNT 7.9 K/mm3 (4.0-10.0)
[2018-05-08 17:31] LABS: ALBUMIN 3.9 g/dl (3.4-5.0); ALK PHOS 93 U/L (45-117); ANION GAP 11 MMOL/L (8-16); BILIRUBIN,TOTAL 0.6 mg/dL (0.2-1); BLOOD UREA NITROGEN 14 mg/dL (7-18); CALCIUM 10.1 mg/dL (8.5-10.1); CHLORIDE 93 mmol/L (98-107); CO2 28 mmol/L (21-32); CREATININE 0.9 mg/dL (0.55-1.3); GLUCOSE,RANDOM 108 mg/dL (74-106); LIPASE 105 U/L (73-393); POTASSIUM 3.9 mmol/L (3.5-5.1); SGOT/AST 24 U/L (15-37); SGPT/ALT 28 U/L (13-61); SODIUM 132 mmol/L (136-145); TOT PROT 7.7 g/dl (6.4-8.2)
[2018-05-08] MEDS ORDERED: ACETAMINOPHEN 1000 MG/100 ML VIAL (NON FORMULARY) IVPB ONE (20:22)
[2018-05-08] MEDS ORDERED: ACETAMINOPHEN INJECTION 100 ML IVPB ONE (21:20)
[2018-05-09 02:21] VITALS: BP 184/93; PULSE 83; TEMP 98.3
--- NOTE | 2018-05-09 10:20 | EKG ---
Test Reason : Blood Pressure : / mmHG Vent. Rate : 078 BPM Atrial Rate : 078 BPM P-R Int : 174 ms QRS Dur : 080 ms QT Int : 382 ms P-R-T Axes : 042 -18 062 degrees QTc Int : 435 ms SINUS RHYTHM WITH OCCASIONAL PREMATURE VENTRICULAR COMPLEXES LEFT VENTRICULAR HYPERTROPHY WITH REPOLARIZATION ABNORMALITY ABNORMAL ECG WHEN COMPARED WITH ECG OF 23-APR-2018 14:35, PREMATURE VENTRICULAR COMPLEXES ARE NOW PRESENT CRITERIA FOR SEPTAL INFARCT ARE NO LONGER PRESENT T WAVE INVERSION NOW EVIDENT IN LATERAL LEADS Confirmed by ALY SOLER, MARIOLA ([id number]) on 05/09/2018 10:20:02 AM Referred By: Confirmed By:MARIOLA LU MD
== END 2018-05-09 02:35 | disposition home or self-care (01) ==
LOC: JER 14:58
PROC: 3E033GC Introduction of Other Therapeutic Substance into Peripheral Vein, Percutaneous Approach (ICD-10-PCS; principal; 2018-05-08)
PROC: 3E0337Z Introduction of Electrolytic and Water Balance Substance into Peripheral Vein, Percutaneous Approach (ICD-10-PCS; 2018-05-08)
PROC: 3E033NZ Introduction of Analgesics, Hypnotics, Sedatives into Peripheral Vein, Percutaneous Approach (ICD-10-PCS; 2018-05-08)
DX: R19.7 Diarrhea, unspecified (principal); E78.5 Hyperlipidemia, unspecified; I10 Essential (primary) hypertension; I51.81 Takotsubo syndrome
CPT/HCPCS: 36415; 71045-TC-FY; 74177-TC; 80053; 82550; 83690; 84484; 85025; 93005; 93010; 96361; 96365; 96375; 99283-25; J0131; J7030

== ENCOUNTER 2020-08-11 12:22 | Inpatient (IN) | payer OTHER ==
[2020-08-11] MEDS ORDERED: SODIUM CHLORIDE 0.9% 500 ML INFUS.BAG IV ONE (12:43)
[2020-08-11] MEDS ORDERED: MAG HYDROX/AL HYDROX/SIMETH 30 ML UNIT-DOSE CUP PO ONE (12:54)
[2020-08-11] MEDS ORDERED: FAMOTIDINE 20 MG/50 ML IVPB 20 MG/50 ML MG IVPB ONE ×2 (12:54→13:44)
[2020-08-11] MEDS ORDERED: MAG HYDROX/AL HYDROX/SIMETH 30 ML UNIT-DOSE CUP ONE (13:44)
[2020-08-11 14:19] LABS: BASO % 0.6 % (0-2.0); EOS % 0.2 % (0-4.5); HEMOGLOBIN 14.4 GM/dl (10.7-15.3); LYMPH % 17.1 % (8-40); MCH 31.8 pg (25.7-33.7); MCHC 33.6 g/dl (32.0-36.0); MEAN CELL VOLUME 94.8 fl (80-96); MONO % 7.1 % (3.8-10.2); PLATELET COUNT 303 K/MM3 (134-434); RBC 4.53 M/mm3 (3.60-5.2); RDW 12.6 % (11.6-15.6)
[2020-08-11] MEDS ORDERED: amLODIPine BESYLATE 10 MG TABLET (FP) PO ONE (14:20)
[2020-08-11] MEDS ORDERED: ATENOLOL 50 MG TABLET (FP) PO ONE (14:20)
[2020-08-11] MEDS ORDERED: ONDANSETRON 4 MG/2 ML VIAL IVPUSH ONE (14:20)
[2020-08-11 14:37] LABS: ALBUMIN 4.1 g/dl (3.4-5.0); ALK PHOS 69 U/L (45-117); ANION GAP 12 MMOL/L (8-16); BILIRUBIN,TOTAL 0.9 mg/dl (0.2-1); CALCIUM 9.5 mg/dl (8.5-10); CHLORIDE 95 mmol/L (98-107); CO2 26 mmol/L (21-32); CREATININE 0.8 mg/dl (0.55-1.3); GLUCOSE,RANDOM 106 mg/dl (74-106); LDH 145 U/L (84-246); MAGNESIUM 1.8 mg/dL (1.8-2.4); PHOSPHOROUS 3.7 mg/dl (2.5-4.9); POTASSIUM 4.1 mmol/L (3.5-5.1); SGOT/AST 24 U/L (15-37); SGPT/ALT 21 U/L (13-61); SODIUM 133 mmol/L (136-145); TOT PROT 7.2 g/dl (6.4-8.2)
[2020-08-11 14:38] LABS: BILIRUBIN,DIRECT 0.1 mg/dL (0.0-0.2)
[2020-08-11] MEDS ORDERED: amLODIPine BESYLATE 5 MG TABLET (FP) ONE (14:54)
[2020-08-11] MEDS ORDERED: ONDANSETRON 4 MG/2 ML VIAL ONE (14:54)
[2020-08-11 15:23] LABS: LIPASE 216 U/L (73-393)
[2020-08-11 15:40] LABS: EPITHELIAL CELLS RARE /hpf
[2020-08-11] MEDS ORDERED: CEFTRIAXONE 1 GM in DEXTROSE 5%-WATER - 100 ML IVPB ONE (16:36)
[2020-08-11] MEDS ORDERED: cefTRIAXone SODIUM 1 GM VIAL ONE (16:42)
[2020-08-11 18:41] VITALS: BMI 30.2
[2020-08-11] MEDS: SODIUM CHLORIDE 1,000 ML IV SCH (21:33)
[2020-08-11] MEDS: PANTOPRAZOLE 40 MG TABLET PO SCH (21:34)
[2020-08-11] MEDS: ATORVASTATIN CA 20 MG TABLET (FP) PO SCH (21:34)
[2020-08-11] MEDS: ALPRAZolam 0.25 MG TABLET PO PRN (21:55)
[2020-08-11] MEDS ORDERED: FAMOTIDINE 20 MG/50 ML IVPB 20 MG/50 ML MG IVPB SCH (22:00)
[2020-08-12 08:11] LABS: HEMATOCRIT 40.1 % (32.4-45.2); HEMOGLOBIN 13.5 GM/dl (10.7-15.3); MCH 31.7 pg (25.7-33.7); MCHC 33.6 g/dl (32.0-36.0); MEAN CELL VOLUME 94.2 fl (80-96); MEAN PLT VOLUME 7.7 fl (7.5-11.1); PLATELET COUNT 315 K/MM3 (134-434); RBC 4.26 M/mm3 (3.60-5.2); RDW 12.2 % (11.6-15.6); WHITE BLOOD COUNT 5.9 K/mm3 (4.0-10.8)
[2020-08-12 08:21] LABS: ALBUMIN 3.7 g/dl (3.4-5.0); BILIRUBIN,TOTAL 0.8 mg/dl (0.2-1); CALCIUM 9.2 mg/dl (8.5-10); CREATININE 0.7 mg/dl (0.55-1.3); POTASSIUM 3.8 mmol/L (3.5-5.1); TOT PROT 6.5 g/dl (6.4-8.2)
[2020-08-12] MEDS: SERTRALINE HCL 50 MG TABLET (FP) PO SCH (09:25)
[2020-08-12] MEDS: CHOLECALCIFEROL (VIT D3) 1,000 UNIT (25 MCG) TABLET PO SCH (09:25)
[2020-08-12] MEDS: VALSARTAN 160 MG TABLET PO SCH (09:25)
[2020-08-12] MEDS: POTASSIUM CHLORIDE TABS 20 MEQ TABLET.ER (FP) PO SCH (09:25)
[2020-08-12] MEDS: ATENOLOL 50 MG TABLET (FP) PO SCH (09:25)
[2020-08-12] MEDS: PANTOPRAZOLE 40 MG TABLET PO SCH ×2 (09:25→21:02)
[2020-08-12] MEDS: ONDANSETRON 4 MG/2 ML VIAL IVPB PRN (18:16)
[2020-08-12] MEDS: SODIUM CHLORIDE 1,000 ML IV SCH (20:46)
[2020-08-12] MEDS: ATORVASTATIN CA 20 MG TABLET (FP) PO SCH (21:02)
[2020-08-12] MEDS: ALPRAZolam 0.25 MG TABLET PO PRN (21:02)
[2020-08-13] MEDS: ONDANSETRON 4 MG/2 ML VIAL IVPB PRN (04:03)
[2020-08-13] MEDS ORDERED: ALPRAZolam 0.25 MG TABLET PO PRN (09:15)
[2020-08-13] MEDS: POTASSIUM CHLORIDE TABS 20 MEQ TABLET.ER (FP) PO SCH (09:53)
[2020-08-13] MEDS: CHOLECALCIFEROL (VIT D3) 1,000 UNIT (25 MCG) TABLET PO SCH (09:53)
[2020-08-13] MEDS: amLODIPine BESYLATE 10 MG TABLET (FP) PO SCH (09:53)
[2020-08-13] MEDS: ATENOLOL 50 MG TABLET (FP) PO SCH (09:53)
[2020-08-13] MEDS: VALSARTAN 160 MG TABLET PO SCH (09:53)
[2020-08-13] MEDS: SERTRALINE HCL 50 MG TABLET (FP) PO SCH (09:53)
[2020-08-13] MEDS: PANTOPRAZOLE 40 MG TABLET PO SCH ×2 (09:54→21:04)
[2020-08-13] MEDS: SERTRALINE HCL 25 MG TABLET (FP) PO SCH (15:16)
[2020-08-13] MEDS: ATORVASTATIN CA 20 MG TABLET (FP) PO SCH (21:04)
[2020-08-13] MEDS: ALPRAZolam 0.25 MG TABLET PO PRN (21:04)
[2020-08-13] MEDS: SODIUM CHLORIDE 1,000 ML IV SCH (21:04)
[2020-08-14] MEDS: ALPRAZolam 0.25 MG TABLET PO PRN ×3 (06:51→22:03)
[2020-08-14] MEDS: SERTRALINE HCL 50 MG TABLET (FP) PO SCH (13:35)
[2020-08-14] MEDS: SERTRALINE HCL 25 MG TABLET (FP) PO SCH (13:35)
[2020-08-14] MEDS: CHOLECALCIFEROL (VIT D3) 1,000 UNIT (25 MCG) TABLET PO SCH (13:35)
[2020-08-14] MEDS: POTASSIUM CHLORIDE TABS 20 MEQ TABLET.ER (FP) PO SCH (13:35)
[2020-08-14] MEDS: VALSARTAN 160 MG TABLET PO SCH (13:35)
[2020-08-14] MEDS: PANTOPRAZOLE 40 MG TABLET PO SCH ×2 (13:35→22:03)
[2020-08-14] MEDS: ATENOLOL 50 MG TABLET (FP) PO SCH (13:35)
[2020-08-14] MEDS: amLODIPine BESYLATE 10 MG TABLET (FP) PO SCH (13:35)
[2020-08-14] MEDS: ATORVASTATIN CA 20 MG TABLET (FP) PO SCH (22:03)
[2020-08-14] MEDS: SODIUM CHLORIDE 1,000 ML IV SCH (22:04)
[2020-08-15] MEDS: ALPRAZolam 0.25 MG TABLET PO PRN ×3 (05:53→21:27)
[2020-08-15] MEDS: CHOLECALCIFEROL (VIT D3) 1,000 UNIT (25 MCG) TABLET PO SCH (09:19)
[2020-08-15] MEDS: ATENOLOL 50 MG TABLET (FP) PO SCH (09:19)
[2020-08-15] MEDS: PANTOPRAZOLE 40 MG TABLET PO SCH ×2 (09:19→21:27)
[2020-08-15] MEDS: SERTRALINE HCL 25 MG TABLET (FP) PO SCH (09:19)
[2020-08-15] MEDS: SERTRALINE HCL 50 MG TABLET (FP) PO SCH (09:19)
[2020-08-15] MEDS: VALSARTAN 160 MG TABLET PO SCH (09:20)
[2020-08-15] MEDS: amLODIPine BESYLATE 10 MG TABLET (FP) PO SCH (09:20)
[2020-08-15] MEDS: POTASSIUM CHLORIDE TABS 20 MEQ TABLET.ER (FP) PO SCH (09:21)
[2020-08-15] MEDS: ACETAMINOPHEN 325 MG TABLET (FP) PO PRN (15:25)
[2020-08-15] MEDS: SODIUM CHLORIDE 1,000 ML IV SCH (21:27)
[2020-08-15] MEDS: ATORVASTATIN CA 20 MG TABLET (FP) PO SCH (21:27)
[2020-08-16] MEDS: ALPRAZolam 0.25 MG TABLET PO PRN ×2 (06:54→16:01)
[2020-08-16] MEDS: POTASSIUM CHLORIDE TABS 20 MEQ TABLET.ER (FP) PO SCH (09:24)
[2020-08-16] MEDS: amLODIPine BESYLATE 10 MG TABLET (FP) PO SCH (09:24)
[2020-08-16] MEDS: PANTOPRAZOLE 40 MG TABLET PO SCH (09:24)
[2020-08-16] MEDS: SERTRALINE HCL 25 MG TABLET (FP) PO SCH (09:24)
[2020-08-16] MEDS: ATENOLOL 50 MG TABLET (FP) PO SCH (09:25)
[2020-08-16] MEDS: CHOLECALCIFEROL (VIT D3) 1,000 UNIT (25 MCG) TABLET PO SCH (09:25)
[2020-08-16] MEDS: SERTRALINE HCL 50 MG TABLET (FP) PO SCH (09:25)
[2020-08-16] MEDS: VALSARTAN 160 MG TABLET PO SCH (09:25)
[2020-08-16] MEDS: ACETAMINOPHEN 325 MG TABLET (FP) PO PRN (09:55)
[2020-08-16] MEDS: ONDANSETRON 4 MG/2 ML VIAL IVPB PRN (12:14)
[2020-08-16 14:12] VITALS: BP 147/67; PULSE 74; TEMP 98.5
== END 2020-08-16 19:47 | disposition home or self-care (01) | DRG 392 ==
LOC: FER 12:22 → FM/S 16:37
PROVIDERS: ADMIT Internal Medicine; ATTEND Specialist
DX: K57.32 Diverticulitis of large intestine without perforation or abscess without bleeding (principal); K21.9 Gastro-esophageal reflux disease without esophagitis; E78.00 Pure hypercholesterolemia, unspecified; E86.0 Dehydration; K22.70 Barrett's esophagus without dysplasia; K44.9 Diaphragmatic hernia without obstruction or gangrene; I10 Essential (primary) hypertension; E78.5 Hyperlipidemia, unspecified; M51.36 Other intervertebral disc degeneration, lumbar region; M54.5 Low back pain; K57.30 Diverticulosis of large intestine without perforation or abscess without bleeding; F41.8 Other specified anxiety disorders; K80.20 Calculus of gallbladder without cholecystitis without obstruction; R11.10 Vomiting, unspecified; Z90.2 Acquired absence of lung [part of]; Z85.118 Personal history of other malignant neoplasm of bronchus and lung; Z87.11 Personal history of peptic ulcer disease
CPT/HCPCS: 36415; 71045-TC-FY; 74176-TC; 80053; 81003; 81015; 82248; 82272; 82550; 82728; 83605; 83615; 83690; 83735; 84100; 84484; 85025; 85027; 85730; 86140; 87086; 87804; 93005; 99285-25; C9803; U0003

== ENCOUNTER 2020-08-25 13:05 | Emergency (ER) | payer OTHER ==
[2020-08-25 13:20] VITALS: BP 148/71; PULSE 80; TEMP 98; BMI 29.2
[2020-08-25] MEDS ORDERED: ACETAMINOPHEN 1000 MG/100 ML VIAL (NON FORMULARY) IVPB ONE (13:37)
[2020-08-25] MEDS ORDERED: MAG HYDROX/AL HYDROX/SIMETH 30 ML UNIT-DOSE CUP PO ONE (13:37)
[2020-08-25] MEDS ORDERED: FAMOTIDINE 20 MG/50 ML IVPB 20 MG/50 ML MG IVPB ONE ×2 (13:37→14:08)
[2020-08-25] MEDS ORDERED: SODIUM CHLORIDE 1,000 ML IV STA (13:37)
[2020-08-25] MEDS ORDERED: ONDANSETRON 4 MG/2 ML VIAL IVPUSH ONE (13:37)
[2020-08-25 14:08] LABS: BASO % 1.2 % (0-2.0); EOS % 0.3 % (0-4.5); HEMATOCRIT 41.3 % (32.4-45.2); HEMOGLOBIN 13.9 GM/dl (10.7-15.3); LYMPH % 16.2 % (8-40); MCH 31.2 pg (25.7-33.7); MCHC 33.7 g/dl (32.0-36.0); MEAN CELL VOLUME 92.7 fl (80-96); MEAN PLT VOLUME 8.1 fl (7.5-11.1); MONO % 8.5 % (3.8-10.2); NEUT % 73.8 % (42.8-82.8); PLATELET COUNT 329 K/MM3 (134-434); RBC 4.46 M/mm3 (3.60-5.2); RDW 12.5 % (11.6-15.6); WHITE BLOOD COUNT 5.9 K/mm3 (4.0-10.8)
[2020-08-25] MEDS ORDERED: ONDANSETRON 4 MG/2 ML VIAL ONE (14:09)
[2020-08-25] MEDS ORDERED: ACETAMINOPHEN INJECTION 100 ML IVPB ONE (14:09)
[2020-08-25] MEDS ORDERED: MAG HYDROX/AL HYDROX/SIMETH 30 ML UNIT-DOSE CUP ONE ×2 (14:09→16:57)
[2020-08-25 14:55] LABS: ALBUMIN 3.7 g/dl (3.4-5.0); BILIRUBIN,TOTAL 0.8 mg/dl (0.2-1); CALCIUM 8.9 mg/dl (8.5-10); CREATININE 0.7 mg/dl (0.55-1.3); POTASSIUM 3.4 mmol/L (3.5-5.1); TOT PROT 6.3 g/dl (6.4-8.2)
[2020-08-25 15:44] LABS: EPITHELIAL CELLS FEW /hpf
[2020-08-25] MEDS ORDERED: MAG HYDROX/AL HYDROX/SIMETH -MYLANTA- ORAL SUSPENSION PO ONE (16:55)
[2020-08-25] MEDS ORDERED: METOCLOPRAMIDE HCL INJECTION 10 MG/2 ML VIAL IVPUSH ONE (16:55)
[2020-08-25] MEDS ORDERED: METOCLOPRAMIDE HCL INJECTION 10 MG/2 ML VIAL ONE (16:57)
== END 2020-08-25 18:38 | disposition home or self-care (01) ==
LOC: FER 13:05
PROC: 3E033NZ Introduction of Analgesics, Hypnotics, Sedatives into Peripheral Vein, Percutaneous Approach (ICD-10-PCS; principal; 2020-08-25)
PROC: 3E033GC Introduction of Other Therapeutic Substance into Peripheral Vein, Percutaneous Approach (ICD-10-PCS; 2020-08-25)
PROC: 3E0337Z Introduction of Electrolytic and Water Balance Substance into Peripheral Vein, Percutaneous Approach (ICD-10-PCS; 2020-08-25)
DX: K29.50 Unspecified chronic gastritis without bleeding (principal)
CPT/HCPCS: 36415; 70450-TC; 71045-TC-FY; 80053; 81003; 81015; 83690; 83735; 84484; 85025; 87086; 87186; 99285-25; J0131

== ENCOUNTER 2020-08-31 13:48 | Inpatient (IN) | payer OTHER ==
[2020-08-31] MEDS ORDERED: MAG HYDROX/AL HYDROX/SIMETH -MYLANTA- ORAL SUSPENSION PO ONE (16:15)
[2020-08-31] MEDS ORDERED: FAMOTIDINE 20 MG/50 ML IVPB 20 MG/50 ML MG IVPB ONE ×2 (16:15→16:44)
[2020-08-31] MEDS ORDERED: SODIUM CHLORIDE 1,000 ML IV STA (16:15)
[2020-08-31] MEDS ORDERED: METOCLOPRAMIDE HCL INJECTION 10 MG/2 ML VIAL IVPB ONE (16:15)
[2020-08-31] MEDS ORDERED: MAG HYDROX/AL HYDROX/SIMETH 30 ML UNIT-DOSE CUP ONE (16:44)
[2020-08-31] MEDS ORDERED: METOCLOPRAMIDE HCL INJECTION 10 MG/2 ML VIAL ONE (16:44)
[2020-08-31] MEDS ORDERED: ONDANSETRON 4 MG TABLET PO PRN (17:09)
[2020-08-31] MEDS: SODIUM CHLORIDE 1,000 ML IV SCH (17:17)
[2020-08-31 17:27] LABS: BASO % 0.2 % (0-2.0); EOS % 0.1 % (0-4.5); HEMATOCRIT 44.3 % (32.4-45.2); HEMOGLOBIN 15.1 GM/dL (10.7-15.3); LYMPH % 24.5 % (8-40); MCH 31.6 pg (25.7-33.7); MEAN CELL VOLUME 92.9 fl (80-96); NEUT % 66.2 % (42.8-82.8); PLATELET COUNT 289 K/MM3 (134-434); RBC 4.77 M/mm3 (3.60-5.2); RDW 13.4 % (11.6-15.6); WHITE BLOOD COUNT 5.4 K/mm3 (4.0-10.0)
[2020-08-31 17:44] LABS: BLOOD UREA NITROGEN 10.9 mg/dL (7-18); CALCIUM 10.2 mg/dL (8.5-10.1)
[2020-08-31 17:47] LABS: CREATININE 0.8 mg/dL (0.55-1.3)
[2020-08-31 17:49] LABS: BILIRUBIN,TOTAL 0.7 mg/dL (0.2-1); TOT PROT 7.4 g/dl (6.4-8.2)
[2020-08-31 18:02] LABS: EPI CELLS 23 /uL (0-25.1); HYALINE CASTS 13 /uL (0-3.1); URINE APPEARANCE CLEAR; URINE BACTERIA 96 /uL (0-1359); URINE BILIRUBIN NEGATIVE (NEGATIVE); URINE COLOR YELLOW; URINE GLUCOSE (UA) NEGATIVE (NEGATIVE); URINE KETONE 4+ (NEGATIVE); URINE LEUK ESTERASE NEGATIVE (NEGATIVE); URINE NITRITE NEGATIVE (NEGATIVE); URINE PROTEIN 1+ (NEGATIVE); URINE RBC 31 /uL (0-23.9); URINE WBC 22 /uL (0-25.8)
[2020-08-31 19:12] LABS: YEAST NEGATIVE (NEGATIVE)
[2020-08-31] MEDS: ALPRAZolam 0.25 MG TABLET PO PRN (22:36)
[2020-09-01] MEDS ORDERED: amLODIPine BESYLATE 5 MG TABLET (FP) PO ONE (00:30)
[2020-09-01 01:12] VITALS: BMI 27.4
[2020-09-01] MEDS ORDERED: POTASSIUM CHLORIDE ORAL LIQUID 20 MEQ/15 ML PO ONE (08:48)
[2020-09-01] MEDS: CHOLECALCIFEROL (VIT D3) 1,000 UNIT (25 MCG) TABLET PO SCH (09:53)
[2020-09-01] MEDS: SERTRALINE HCL 50 MG TABLET (FP) PO SCH (09:55)
[2020-09-01] MEDS: ATENOLOL 50 MG TABLET (FP) PO SCH (09:55)
[2020-09-01] MEDS: PANTOPRAZOLE 40 MG TABLET PO SCH (09:55)
[2020-09-01] MEDS: amLODIPine BESYLATE 10 MG TABLET (FP) PO SCH (09:55)
[2020-09-01] MEDS: VALSARTAN 80 MG TABLET PO SCH (09:55)
[2020-09-01] MEDS ORDERED: POTASSIUM CHLORIDE TABS 10 MEQ TABLET.ER (FP) PO SCH (10:00)
[2020-09-01 10:49] LABS: BASO % 0.8 % (0-2.0); EOS % 0.1 % (0-4.5); HEMATOCRIT 39.6 % (32.4-45.2); HEMOGLOBIN 13.6 GM/dL (10.7-15.3); LYMPH % 25.3 % (8-40); MCH 31.7 pg (25.7-33.7); MCHC 34.3 g/dl (32.0-36.0); MEAN CELL VOLUME 92.5 fl (80-96); MEAN PLT VOLUME 8.1 fl (7.5-11.1); MONO % 8.7 % (3.8-10.2); NEUT % 65.1 % (42.8-82.8); PLATELET COUNT 253 K/MM3 (134-434); RBC 4.28 M/mm3 (3.60-5.2); RDW 13.5 % (11.6-15.6); WHITE BLOOD COUNT 3.9 K/mm3 (4.0-10.0)
[2020-09-01 10:59] LABS: ALBUMIN 3.6 g/dl (3.4-5.0); BLOOD UREA NITROGEN 4.1 mg/dL (7-18); CALCIUM 9.1 mg/dL (8.5-10.1)
[2020-09-01 11:02] LABS: CREATININE 0.6 mg/dL (0.55-1.3)
[2020-09-01 11:03] LABS: PHOSPHOROUS 2.8 mg/dL (2.5-4.9)
[2020-09-01 11:04] LABS: BILIRUBIN,TOTAL 0.8 mg/dL (0.2-1); TOT PROT 6.7 g/dl (6.4-8.2)
[2020-09-01] MEDS: ONDANSETRON 4 MG/2 ML VIAL IVPUSH PRN ×2 (11:27→15:49)
[2020-09-01] MEDS: ALPRAZolam 0.25 MG TABLET PO PRN ×2 (11:27→20:55)
[2020-09-01] MEDS: ACETAMINOPHEN 325 MG TABLET (FP) PO PRN (20:54)
[2020-09-01] MEDS: ATORVASTATIN CA 20 MG TABLET (FP) PO SCH (22:15)
[2020-09-01] MEDS: SODIUM CHLORIDE 1,000 ML IV SCH (22:16)
[2020-09-02] MEDS: ACETAMINOPHEN 325 MG TABLET (FP) PO PRN ×4 (06:09→20:53)
[2020-09-02] MEDS: ALPRAZolam 0.25 MG TABLET PO PRN ×3 (06:10→20:55)
[2020-09-02] MEDS: ONDANSETRON 4 MG/2 ML VIAL IVPUSH PRN ×2 (06:12→15:11)
[2020-09-02] MEDS: SODIUM CHLORIDE 1,000 ML IV SCH ×2 (06:13→17:20)
[2020-09-02 08:46] LABS: BASO % 0.7 % (0-2.0); EOS % 1.3 % (0-4.5); HEMATOCRIT 36.4 % (32.4-45.2); HEMOGLOBIN 12.8 GM/dL (10.7-15.3); LYMPH % 38.7 % (8-40); MCH 32.4 pg (25.7-33.7); MCHC 35.1 g/dl (32.0-36.0); MEAN CELL VOLUME 92.1 fl (80-96); MEAN PLT VOLUME 8.3 fl (7.5-11.1); MONO % 12.9 % (3.8-10.2); NEUT % 46.4 % (42.8-82.8); PLATELET COUNT 227 K/MM3 (134-434); RBC 3.96 M/mm3 (3.60-5.2); RDW 13.3 % (11.6-15.6); WHITE BLOOD COUNT 3.5 K/mm3 (4.0-10.0)
[2020-09-02 09:21] LABS: ALBUMIN 3.2 g/dl (3.4-5.0); BLOOD UREA NITROGEN 6.6 mg/dL (7-18); CALCIUM 9.2 mg/dL (8.5-10.1); MAGNESIUM 2.1 mg/dL (1.8-2.4)
[2020-09-02 09:25] LABS: BILIRUBIN,TOTAL 0.8 mg/dL (0.2-1); CREATININE 0.7 mg/dL (0.55-1.3); PHOSPHOROUS 3.3 mg/dL (2.5-4.9)
[2020-09-02 09:27] LABS: TOT PROT 5.8 g/dl (6.4-8.2)
[2020-09-02] MEDS: ATENOLOL 50 MG TABLET (FP) PO SCH (09:30)
[2020-09-02] MEDS: PANTOPRAZOLE 40 MG TABLET PO SCH (09:30)
[2020-09-02] MEDS: amLODIPine BESYLATE 10 MG TABLET (FP) PO SCH (09:30)
[2020-09-02] MEDS: CHOLECALCIFEROL (VIT D3) 1,000 UNIT (25 MCG) TABLET PO SCH (09:30)
[2020-09-02] MEDS: SERTRALINE HCL 50 MG TABLET (FP) PO SCH (09:30)
[2020-09-02] MEDS: VALSARTAN 80 MG TABLET PO SCH (09:31)
[2020-09-02] MEDS: POTASSIUM CHLORIDE ORAL LIQUID 20 MEQ/15 ML PO SCH (09:33)
[2020-09-02] MEDS: ATORVASTATIN CA 20 MG TABLET (FP) PO SCH (21:03)
[2020-09-03] MEDS: ACETAMINOPHEN 325 MG TABLET (FP) PO PRN ×3 (07:10→20:35)
[2020-09-03] MEDS: SODIUM CHLORIDE 1,000 ML IV SCH ×3 (07:45→20:22)
[2020-09-03] MEDS: ONDANSETRON 4 MG/2 ML VIAL IVPUSH PRN ×3 (07:57→20:37)
[2020-09-03] MEDS ORDERED: PT OWN MED DRAWER 7, Y5N ONE (09:14)
[2020-09-03] MEDS: VALSARTAN 80 MG TABLET PO SCH (09:18)
[2020-09-03] MEDS: ATENOLOL 50 MG TABLET (FP) PO SCH (09:19)
[2020-09-03] MEDS: amLODIPine BESYLATE 10 MG TABLET (FP) PO SCH (09:19)
[2020-09-03] MEDS: PANTOPRAZOLE 40 MG TABLET PO SCH (09:19)
[2020-09-03] MEDS: SERTRALINE HCL 50 MG TABLET (FP) PO SCH (09:20)
[2020-09-03] MEDS: ALPRAZolam 0.25 MG TABLET PO PRN ×3 (09:20→22:10)
[2020-09-03] MEDS: CHOLECALCIFEROL (VIT D3) 1,000 UNIT (25 MCG) TABLET PO SCH (09:20)
[2020-09-03 09:26] LABS: BASO % 0.8 % (0-2.0); EOS % 1.6 % (0-4.5); HEMATOCRIT 37.3 % (32.4-45.2); HEMOGLOBIN 13.2 GM/dL (10.7-15.3); LYMPH % 44.2 % (8-40); MCH 32.1 pg (25.7-33.7); MCHC 35.3 g/dl (32.0-36.0); MEAN CELL VOLUME 91.1 fl (80-96); MEAN PLT VOLUME 8.1 fl (7.5-11.1); MONO % 12.3 % (3.8-10.2); NEUT % 41.1 % (42.8-82.8); PLATELET COUNT 225 K/MM3 (134-434); RBC 4.09 M/mm3 (3.60-5.2); RDW 13.5 % (11.6-15.6); WHITE BLOOD COUNT 3.2 K/mm3 (4.0-10.0)
[2020-09-03] MEDS: POTASSIUM CHLORIDE ORAL LIQUID 20 MEQ/15 ML PO SCH ×2 (09:35→21:01)
[2020-09-03 10:11] LABS: BLOOD UREA NITROGEN 4.4 mg/dL (7-18); CALCIUM 8.8 mg/dL (8.5-10.1)
[2020-09-03 10:12] LABS: ALBUMIN 3.2 g/dl (3.4-5.0)
[2020-09-03 10:15] LABS: CREATININE 0.6 mg/dL (0.55-1.3)
[2020-09-03 10:16] LABS: BILIRUBIN,TOTAL 0.8 mg/dL (0.2-1)
[2020-09-03] MEDS: ATORVASTATIN CA 20 MG TABLET (FP) PO SCH (21:01)
[2020-09-04] MEDS: ACETAMINOPHEN 325 MG TABLET (FP) PO PRN ×4 (06:10→20:25)
[2020-09-04] MEDS: ALPRAZolam 0.25 MG TABLET PO PRN ×2 (06:10→20:24)
[2020-09-04] MEDS: ONDANSETRON 4 MG/2 ML VIAL IVPUSH PRN ×4 (06:10→20:29)
[2020-09-04] MEDS: SODIUM CHLORIDE 1,000 ML IV SCH ×3 (06:13→20:08)
[2020-09-04] MEDS ORDERED: PT OWN MED DRAWER 7, Y5N ONE ×2 (09:30→17:20)
[2020-09-04] MEDS: POTASSIUM CHLORIDE ORAL LIQUID 20 MEQ/15 ML PO SCH ×2 (09:32→21:01)
[2020-09-04] MEDS: PANTOPRAZOLE 40 MG TABLET PO SCH (09:32)
[2020-09-04] MEDS: ATENOLOL 50 MG TABLET (FP) PO SCH (09:32)
[2020-09-04] MEDS: VALSARTAN 80 MG TABLET PO SCH (09:32)
[2020-09-04] MEDS: amLODIPine BESYLATE 10 MG TABLET (FP) PO SCH (09:32)
[2020-09-04] MEDS: CHOLECALCIFEROL (VIT D3) 1,000 UNIT (25 MCG) TABLET PO SCH (09:33)
[2020-09-04] MEDS: SERTRALINE HCL 50 MG TABLET (FP) PO SCH (09:33)
[2020-09-04] MEDS: ATORVASTATIN CA 20 MG TABLET (FP) PO SCH (21:02)
[2020-09-05] MEDS: ALPRAZolam 0.25 MG TABLET PO PRN ×3 (05:38→21:10)
[2020-09-05] MEDS: ACETAMINOPHEN 325 MG TABLET (FP) PO PRN ×3 (08:25→19:57)
[2020-09-05] MEDS: ONDANSETRON 4 MG/2 ML VIAL IVPUSH PRN ×3 (08:28→19:57)
[2020-09-05] MEDS: SODIUM CHLORIDE 1,000 ML IV SCH ×2 (08:30→19:45)
[2020-09-05] MEDS ORDERED: PT OWN MED DRAWER 7, Y5N ONE (08:50)
[2020-09-05] MEDS: SERTRALINE HCL 50 MG TABLET (FP) PO SCH (09:05)
[2020-09-05] MEDS: amLODIPine BESYLATE 10 MG TABLET (FP) PO SCH (09:06)
[2020-09-05] MEDS: POTASSIUM CHLORIDE ORAL LIQUID 20 MEQ/15 ML PO SCH ×2 (09:06→21:10)
[2020-09-05] MEDS: ATENOLOL 50 MG TABLET (FP) PO SCH (09:06)
[2020-09-05] MEDS: CHOLECALCIFEROL (VIT D3) 1,000 UNIT (25 MCG) TABLET PO SCH (09:06)
[2020-09-05] MEDS: PANTOPRAZOLE 40 MG TABLET PO SCH (09:06)
[2020-09-05] MEDS: VALSARTAN 80 MG TABLET PO SCH (09:06)
[2020-09-05 09:47] LABS: BASO % 0.9 % (0-2.0); EOS % 2.3 % (0-4.5); HEMATOCRIT 39.3 % (32.4-45.2); HEMOGLOBIN 13.9 GM/dL (10.7-15.3); LYMPH % 44.3 % (8-40); MCH 32.4 pg (25.7-33.7); MCHC 35.3 g/dl (32.0-36.0); MEAN CELL VOLUME 91.9 fl (80-96); MEAN PLT VOLUME 8.3 fl (7.5-11.1); MONO % 12.9 % (3.8-10.2); NEUT % 39.6 % (42.8-82.8); PLATELET COUNT 230 K/MM3 (134-434); RBC 4.27 M/mm3 (3.60-5.2); RDW 13.8 % (11.6-15.6); WHITE BLOOD COUNT 3.4 K/mm3 (4.0-10.0)
[2020-09-05 09:54] LABS: INR 1.28 (0.83-1.09); PROTHROMBIN TIME (PATIENT) 15.6 SEC (9.7-13.0)
[2020-09-05 09:56] LABS: ACTIVATED PTT 28.2 SECONDS (25.2-36.5)
[2020-09-05 10:17] LABS: BLOOD UREA NITROGEN 3.6 mg/dL (7-18); CALCIUM 9.1 mg/dL (8.5-10.1)
[2020-09-05 10:19] LABS: ALBUMIN 3.6 g/dl (3.4-5.0)
[2020-09-05 10:20] LABS: CREATININE 0.6 mg/dL (0.55-1.3)
[2020-09-05 10:21] LABS: BILIRUBIN,TOTAL 0.6 mg/dL (0.2-1); TOT PROT 6.3 g/dl (6.4-8.2)
[2020-09-05] MEDS: ATORVASTATIN CA 20 MG TABLET (FP) PO SCH (21:10)
[2020-09-06] MEDS: ALPRAZolam 0.25 MG TABLET PO PRN ×2 (06:30→21:04)
[2020-09-06] MEDS: amLODIPine BESYLATE 10 MG TABLET (FP) PO SCH ×2 (06:46→09:59)
[2020-09-06] MEDS: ATENOLOL 50 MG TABLET (FP) PO SCH ×2 (06:46→09:59)
[2020-09-06] MEDS: PANTOPRAZOLE 40 MG TABLET PO SCH (09:55)
[2020-09-06] MEDS: SERTRALINE HCL 50 MG TABLET (FP) PO SCH (09:55)
[2020-09-06] MEDS: CHOLECALCIFEROL (VIT D3) 1,000 UNIT (25 MCG) TABLET PO SCH (09:55)
[2020-09-06] MEDS: ONDANSETRON 4 MG/2 ML VIAL IVPUSH PRN (09:56)
[2020-09-06] MEDS: POTASSIUM CHLORIDE ORAL LIQUID 20 MEQ/15 ML PO SCH ×2 (09:56→21:03)
[2020-09-06] MEDS: ACETAMINOPHEN 325 MG TABLET (FP) PO PRN (09:58)
[2020-09-06] MEDS: VALSARTAN 80 MG TABLET PO SCH (12:08)
[2020-09-06] MEDS: traMADol HCL 50 MG TABLET PO PRN (17:30)
[2020-09-06] MEDS: SODIUM CHLORIDE 1,000 ML IV SCH (17:31)
[2020-09-06] MEDS: ATORVASTATIN CA 20 MG TABLET (FP) PO SCH (21:03)
[2020-09-07] MEDS: SODIUM CHLORIDE 1,000 ML IV SCH ×2 (01:30→17:00)
[2020-09-07] MEDS: ACETAMINOPHEN 325 MG TABLET (FP) PO PRN (01:32)
[2020-09-07] MEDS: ALPRAZolam 0.25 MG TABLET PO PRN ×2 (07:11→20:25)
[2020-09-07 08:52] LABS: EOS % 4.2 % (0-4.5); HEMATOCRIT 37.1 % (32.4-45.2); HEMOGLOBIN 12.9 GM/dL (10.7-15.3); LYMPH % 45.8 % (8-40); MCH 31.8 pg (25.7-33.7); MCHC 34.8 g/dl (32.0-36.0); MEAN CELL VOLUME 91.2 fl (80-96); MEAN PLT VOLUME 8.2 fl (7.5-11.1); MONO % 14.5 % (3.8-10.2); NEUT % 34.5 % (42.8-82.8); PLATELET COUNT 217 K/MM3 (134-434); RBC 4.07 M/mm3 (3.60-5.2); RDW 13.4 % (11.6-15.6); WHITE BLOOD COUNT 2.7 K/mm3 (4.0-10.0)
[2020-09-07] MEDS: ATENOLOL 50 MG TABLET (FP) PO SCH (09:12)
[2020-09-07] MEDS: SERTRALINE HCL 50 MG TABLET (FP) PO SCH (09:12)
[2020-09-07] MEDS: amLODIPine BESYLATE 10 MG TABLET (FP) PO SCH (09:12)
[2020-09-07] MEDS: VALSARTAN 80 MG TABLET PO SCH (09:12)
[2020-09-07 09:19] LABS: ALBUMIN 3.1 g/dl (3.4-5.0); BLOOD UREA NITROGEN 3.6 mg/dL (7-18); CALCIUM 8.9 mg/dL (8.5-10.1)
[2020-09-07 09:22] LABS: CREATININE 0.6 mg/dL (0.55-1.3)
[2020-09-07 09:23] LABS: BILIRUBIN,TOTAL 0.6 mg/dL (0.2-1)
[2020-09-07 09:24] LABS: TOT PROT 5.7 g/dl (6.4-8.2)
[2020-09-07] MEDS: traMADol HCL 50 MG TABLET PO PRN (09:39)
[2020-09-07] MEDS ORDERED: LIDOCAINE HCL/PF 2% SDV 5ML VIAL ONE (12:09)
[2020-09-07] MEDS ORDERED: ROCURONIUM BROMIDE 50 MG/5 ML SYRINGE ONE ×2 (12:10→13:34)
[2020-09-07] MEDS ORDERED: MIDAZOLAM HCL 2 MG/2 ML SINGLE DOSE VIAL ONE (12:10)
[2020-09-07] MEDS ORDERED: PROPOFOL 20 ML ONE (12:10)
[2020-09-07] MEDS ORDERED: SUCCINYLCHOLINE CHLORIDE 200 MG/10 ML SYRINGE ONE (12:11)
[2020-09-07] MEDS ORDERED: ceFAZolin SODIUM 1 GM VIAL IVPB ONE (12:45)
[2020-09-07] MEDS ORDERED: BUPIVACAINE LIPOSOME/PF (EXPAREL) 266 MG/20 ML VIAL ONE (12:49)
[2020-09-07] MEDS: POTASSIUM CHLORIDE ORAL LIQUID 20 MEQ/15 ML PO SCH ×2 (13:01→21:34)
[2020-09-07] MEDS ORDERED: EPHEDRINE SULFATE/0.9% NACL/PF 50 MG/10 ML SYRINGE NR ONE (13:19)
[2020-09-07] MEDS ORDERED: ACETAMINOPHEN INJECTION 100 ML IVPB ONE (14:36)
[2020-09-07] MEDS ORDERED: BUPIVACAINE LIPOSOME/PF (EXPAREL) 266 MG/20 ML VIAL NR ONE (14:39)
[2020-09-07] MEDS ORDERED: BUPIVACAINE HCL/PF 0.5% (5MG/ML) 10 ML VIAL IJ ONE (14:39)
[2020-09-07] MEDS ORDERED: NEOSTIGMINE METHYLSULFATE 0.5 MG/ML - 10 ML MDV ONE (14:41)
[2020-09-07] MEDS ORDERED: hydrALAZINE HCL 20 MG/ML VIAL ONE (15:18)
[2020-09-07] MEDS ORDERED: hydrALAZINE HCL 20 MG/ML VIAL IVPUSH ONE ×2 (15:25→17:10)
[2020-09-07] MEDS ORDERED: METOCLOPRAMIDE HCL INJECTION 10 MG/2 ML VIAL IVPUSH SCH (16:02)
[2020-09-07] MEDS ORDERED: ACETAMINOPHEN 1000 MG/100 ML VIAL (NON FORMULARY) IVPB SCH (16:02)
[2020-09-07] MEDS ORDERED: ONDANSETRON 4 MG/2 ML VIAL IVPUSH SCH (16:02)
[2020-09-07] MEDS ORDERED: traMADol HCL 50 MG TABLET PO PRN (16:02)
[2020-09-07] MEDS ORDERED: HYDROmorphone HCL/PF 1 MG/ML VIAL IVPB PRN (16:02)
[2020-09-07] MEDS ORDERED: ONDANSETRON 4 MG/2 ML VIAL IVPUSH PRN (16:02)
[2020-09-07] MEDS ORDERED: METOCLOPRAMIDE HCL INJECTION 10 MG/2 ML VIAL ONE (16:44)
[2020-09-07] MEDS ORDERED: ONDANSETRON 4 MG/2 ML VIAL ONE (16:44)
[2020-09-07] MEDS: METOCLOPRAMIDE HCL INJECTION 10 MG/2 ML VIAL IVPUSH SCH ×2 (16:45→22:54)
[2020-09-07] MEDS: ONDANSETRON 4 MG/2 ML VIAL IVPUSH SCH ×2 (17:00→20:25)
[2020-09-07] MEDS: CHOLECALCIFEROL (VIT D3) 1,000 UNIT (25 MCG) TABLET PO SCH (18:26)
[2020-09-07] MEDS: PANTOPRAZOLE 40 MG TABLET PO SCH (18:26)
[2020-09-07] MEDS: ACETAMINOPHEN 1000 MG/100 ML VIAL (NON FORMULARY) IVPB SCH (18:51)
[2020-09-07] MEDS: FAMOTIDINE 20 MG/50 ML IVPB 20 MG/50 ML MG IVPB SCH (21:24)
[2020-09-07] MEDS: ATORVASTATIN CA 20 MG TABLET (FP) PO SCH (21:24)
[2020-09-07] MEDS ORDERED: ENOXAPARIN NA (PORCINE) 40 MG/0.4 ML DISP.SYRIN SQ SCH (22:00)
[2020-09-07] MEDS ORDERED: FAMOTIDINE 20 MG/50 ML IVPB 50 ML IVPB SCH (22:00)
[2020-09-08] MEDS: ACETAMINOPHEN 1000 MG/100 ML VIAL (NON FORMULARY) IVPB SCH ×3 (01:52→09:49)
[2020-09-08] MEDS: ONDANSETRON 4 MG/2 ML VIAL IVPUSH SCH ×6 (01:53→18:52)
[2020-09-08] MEDS: METOCLOPRAMIDE HCL INJECTION 10 MG/2 ML VIAL IVPUSH SCH ×4 (04:27→23:23)
[2020-09-08] MEDS: ALPRAZolam 0.25 MG TABLET PO PRN (07:20)
[2020-09-08 07:39] LABS: HEMOGLOBIN 12.1 GM/dL (10.7-15.3); MCH 31.9 pg (25.7-33.7); MCHC 34.4 g/dl (32.0-36.0); MEAN CELL VOLUME 92.5 fl (80-96); MEAN PLT VOLUME 8.4 fl (7.5-11.1); PLATELET COUNT 216 K/MM3 (134-434); RBC 3.78 M/mm3 (3.60-5.2); RDW 13.5 % (11.6-15.6); WHITE BLOOD COUNT 6.7 K/mm3 (4.0-10.0)
[2020-09-08 08:08] LABS: ALBUMIN 3.2 g/dl (3.4-5.0)
[2020-09-08 08:09] LABS: BLOOD UREA NITROGEN 4.9 mg/dL (7-18)
[2020-09-08 08:10] LABS: BILIRUBIN,TOTAL 0.6 mg/dL (0.2-1); TOT PROT 5.5 g/dl (6.4-8.2)
[2020-09-08 08:11] LABS: CALCIUM 8.6 mg/dL (8.5-10.1); CREATININE 0.6 mg/dL (0.55-1.3)
[2020-09-08] MEDS: HYDROmorphone HCl 2 MG/ML VIAL IVPB PRN ×4 (09:47→22:23)
[2020-09-08] MEDS: CHOLECALCIFEROL (VIT D3) 1,000 UNIT (25 MCG) TABLET PO SCH (09:48)
[2020-09-08] MEDS: PANTOPRAZOLE 40 MG TABLET PO SCH (09:48)
[2020-09-08] MEDS: ATENOLOL 50 MG TABLET (FP) PO SCH (09:48)
[2020-09-08] MEDS: ENOXAPARIN NA (PORCINE) 40 MG/0.4 ML DISP.SYRIN SQ SCH (09:49)
[2020-09-08] MEDS: SERTRALINE HCL 50 MG TABLET (FP) PO SCH (09:49)
[2020-09-08] MEDS: amLODIPine BESYLATE 10 MG TABLET (FP) PO SCH (09:49)
[2020-09-08] MEDS: VALSARTAN 160 MG TABLET PO SCH (09:49)
[2020-09-08] MEDS: POTASSIUM CHLORIDE ORAL LIQUID 20 MEQ/15 ML PO SCH ×2 (09:50→22:17)
[2020-09-08] MEDS: SODIUM CHLORIDE 1,000 ML IV SCH (10:00)
[2020-09-08] MEDS: FAMOTIDINE 20 MG/50 ML IVPB 20 MG/50 ML MG IVPB SCH ×2 (10:05→22:18)
[2020-09-08] MEDS ORDERED: INSULIN (NOVOLOG) ASPART 100 UNITS/ML 10ML VIAL ONE (17:15)
[2020-09-08] MEDS: ATORVASTATIN CA 20 MG TABLET (FP) PO SCH (22:17)
[2020-09-09] MEDS: ONDANSETRON 4 MG/2 ML VIAL IVPUSH SCH ×8 (00:29→23:04)
[2020-09-09] MEDS: SODIUM CHLORIDE 1,000 ML IV SCH ×3 (00:51→16:09)
[2020-09-09] MEDS: METOCLOPRAMIDE HCL INJECTION 10 MG/2 ML VIAL IVPUSH SCH ×5 (04:32→22:22)
[2020-09-09] MEDS: ALPRAZolam 0.25 MG TABLET PO PRN (07:23)
[2020-09-09 08:16] LABS: BASO % 0.2 % (0-2.0); EOS % 0.6 % (0-4.5); HEMATOCRIT 36.5 % (32.4-45.2); HEMOGLOBIN 12.6 GM/dL (10.7-15.3); LYMPH % 20.5 % (8-40); MCH 32.3 pg (25.7-33.7); MCHC 34.4 g/dl (32.0-36.0); MEAN CELL VOLUME 93.7 fl (80-96); MEAN PLT VOLUME 9.1 fl (7.5-11.1); MONO % 10.2 % (3.8-10.2); NEUT % 68.5 % (42.8-82.8); PLATELET COUNT 124 K/MM3 (134-434); RBC 3.89 M/mm3 (3.60-5.2); RDW 14.2 % (11.6-15.6); WHITE BLOOD COUNT 6.3 K/mm3 (4.0-10.0)
[2020-09-09 08:22] LABS: ALBUMIN 3.2 g/dl (3.4-5.0); BLOOD UREA NITROGEN 6.7 mg/dL (7-18); CALCIUM 8.5 mg/dL (8.5-10.1)
[2020-09-09 08:25] LABS: CREATININE 0.6 mg/dL (0.55-1.3)
[2020-09-09 08:27] LABS: BILIRUBIN,TOTAL 0.6 mg/dL (0.2-1); TOT PROT 5.8 g/dl (6.4-8.2)
[2020-09-09] MEDS: ATENOLOL 50 MG TABLET (FP) PO SCH (09:14)
[2020-09-09] MEDS: POTASSIUM CHLORIDE ORAL LIQUID 20 MEQ/15 ML PO SCH ×2 (09:14→22:30)
[2020-09-09] MEDS: CHOLECALCIFEROL (VIT D3) 1,000 UNIT (25 MCG) TABLET PO SCH (09:14)
[2020-09-09] MEDS: ENOXAPARIN NA (PORCINE) 40 MG/0.4 ML DISP.SYRIN SQ SCH (09:14)
[2020-09-09] MEDS: amLODIPine BESYLATE 10 MG TABLET (FP) PO SCH (09:14)
[2020-09-09] MEDS: SERTRALINE HCL 50 MG TABLET (FP) PO SCH (09:14)
[2020-09-09] MEDS: FAMOTIDINE 20 MG/50 ML IVPB 20 MG/50 ML MG IVPB SCH ×2 (09:14→22:26)
[2020-09-09] MEDS: PANTOPRAZOLE 40 MG TABLET PO SCH (09:14)
[2020-09-09] MEDS: VALSARTAN 160 MG TABLET PO SCH (09:14)
[2020-09-09] MEDS ORDERED: DEXAMETHASONE SOD PHOSPHATE 10 MG/1 ML VIAL IVPUSH ONE (09:37)
[2020-09-09] MEDS: ACETAMINOPHEN 325 MG TABLET (FP) PO PRN (16:18)
[2020-09-09] MEDS: HYDROmorphone HCl 2 MG/ML VIAL IVPB PRN (22:24)
[2020-09-09] MEDS: ATORVASTATIN CA 20 MG TABLET (FP) PO SCH (22:26)
[2020-09-10] MEDS: METOCLOPRAMIDE HCL INJECTION 10 MG/2 ML VIAL IVPUSH SCH ×4 (02:46→21:45)
[2020-09-10] MEDS: ONDANSETRON 4 MG/2 ML VIAL IVPUSH SCH ×6 (04:43→22:33)
[2020-09-10] MEDS: ALPRAZolam 0.25 MG TABLET PO PRN ×2 (05:57→22:30)
[2020-09-10] MEDS: HYDROmorphone HCl 2 MG/ML VIAL IVPB PRN ×2 (05:58→14:15)
[2020-09-10] MEDS: SODIUM CHLORIDE 1,000 ML IV SCH ×3 (06:03→18:37)
[2020-09-10] MEDS: ACETAMINOPHEN 325 MG TABLET (FP) PO PRN ×2 (07:27→20:24)
[2020-09-10] MEDS: VALSARTAN 160 MG TABLET PO SCH (09:02)
[2020-09-10] MEDS: POTASSIUM CHLORIDE ORAL LIQUID 20 MEQ/15 ML PO SCH ×2 (09:02→22:30)
[2020-09-10] MEDS: amLODIPine BESYLATE 10 MG TABLET (FP) PO SCH (09:02)
[2020-09-10] MEDS: CHOLECALCIFEROL (VIT D3) 1,000 UNIT (25 MCG) TABLET PO SCH (09:02)
[2020-09-10] MEDS: ATENOLOL 50 MG TABLET (FP) PO SCH (09:02)
[2020-09-10] MEDS: FAMOTIDINE 20 MG/50 ML IVPB 20 MG/50 ML MG IVPB SCH ×2 (09:02→22:31)
[2020-09-10] MEDS: SERTRALINE HCL 50 MG TABLET (FP) PO SCH (09:02)
[2020-09-10] MEDS: ENOXAPARIN NA (PORCINE) 40 MG/0.4 ML DISP.SYRIN SQ SCH (09:03)
[2020-09-10] MEDS: PANTOPRAZOLE 40 MG TABLET PO SCH (10:35)
[2020-09-10] MEDS ORDERED: DEXAMETHASONE SOD PHOSPHATE 10 MG/1 ML VIAL IVPUSH ONE (11:03)
[2020-09-10] MEDS: ATORVASTATIN CA 20 MG TABLET (FP) PO SCH (22:30)
[2020-09-11] MEDS: ONDANSETRON 4 MG/2 ML VIAL IVPUSH SCH ×6 (03:20→23:16)
[2020-09-11] MEDS: METOCLOPRAMIDE HCL INJECTION 10 MG/2 ML VIAL IVPUSH SCH ×5 (03:20→21:08)
[2020-09-11] MEDS: ALPRAZolam 0.25 MG TABLET PO PRN ×2 (06:01→21:07)
[2020-09-11 08:28] LABS: EOS % 0.1 % (0-4.5); HEMOGLOBIN 11.7 GM/dL (10.7-15.3); LYMPH % 19.3 % (8-40); MCH 32.2 pg (25.7-33.7); MCHC 34.5 g/dl (32.0-36.0); MEAN CELL VOLUME 93.6 fl (80-96); MEAN PLT VOLUME 8.4 fl (7.5-11.1); MONO % 11.6 % (3.8-10.2); PLATELET COUNT 230 K/MM3 (134-434); RBC 3.63 M/mm3 (3.60-5.2); RDW 13.4 % (11.6-15.6); WHITE BLOOD COUNT 3.7 K/mm3 (4.0-10.0)
[2020-09-11 08:41] LABS: ALBUMIN 2.8 g/dl (3.4-5.0); BLOOD UREA NITROGEN 7.3 mg/dL (7-18); CALCIUM 8.7 mg/dL (8.5-10.1)
[2020-09-11 08:45] LABS: CREATININE 0.6 mg/dL (0.55-1.3)
[2020-09-11 08:46] LABS: BILIRUBIN,TOTAL 0.6 mg/dL (0.2-1); TOT PROT 5.4 g/dl (6.4-8.2)
[2020-09-11] MEDS ORDERED: PT OWN MED DRAWER 7, Y5N ONE (08:57)
[2020-09-11] MEDS: VALSARTAN 160 MG TABLET PO SCH (09:19)
[2020-09-11] MEDS: ENOXAPARIN NA (PORCINE) 40 MG/0.4 ML DISP.SYRIN SQ SCH (09:19)
[2020-09-11] MEDS: SODIUM CHLORIDE 1,000 ML IV SCH ×2 (09:19→16:00)
[2020-09-11] MEDS: SERTRALINE HCL 50 MG TABLET (FP) PO SCH (09:20)
[2020-09-11] MEDS: FAMOTIDINE 20 MG/50 ML IVPB 20 MG/50 ML MG IVPB SCH ×2 (09:20→21:07)
[2020-09-11] MEDS: CHOLECALCIFEROL (VIT D3) 1,000 UNIT (25 MCG) TABLET PO SCH (09:20)
[2020-09-11] MEDS: ATENOLOL 50 MG TABLET (FP) PO SCH (09:20)
[2020-09-11] MEDS: POTASSIUM CHLORIDE ORAL LIQUID 20 MEQ/15 ML PO SCH ×2 (09:20→21:08)
[2020-09-11] MEDS: PANTOPRAZOLE 40 MG TABLET PO SCH (09:20)
[2020-09-11] MEDS: amLODIPine BESYLATE 10 MG TABLET (FP) PO SCH (09:20)
[2020-09-11] MEDS: ACETAMINOPHEN 325 MG TABLET (FP) PO PRN (09:40)
[2020-09-11] MEDS: HYDROmorphone HCl 2 MG/ML VIAL IVPB PRN ×2 (13:33→19:43)
[2020-09-11] MEDS: ATORVASTATIN CA 20 MG TABLET (FP) PO SCH (21:07)
[2020-09-12] MEDS: HYDROmorphone HCl 2 MG/ML VIAL IVPB PRN ×3 (02:03→21:07)
[2020-09-12] MEDS: METOCLOPRAMIDE HCL INJECTION 10 MG/2 ML VIAL IVPUSH SCH ×4 (03:01→20:27)
[2020-09-12] MEDS: ONDANSETRON 4 MG/2 ML VIAL IVPUSH SCH ×6 (03:01→23:46)
[2020-09-12] MEDS: ALPRAZolam 0.25 MG TABLET PO PRN ×2 (05:33→21:07)
[2020-09-12] MEDS: FAMOTIDINE 20 MG/50 ML IVPB 20 MG/50 ML MG IVPB SCH ×2 (09:28→21:07)
[2020-09-12] MEDS: POTASSIUM CHLORIDE ORAL LIQUID 20 MEQ/15 ML PO SCH ×2 (09:28→21:07)
[2020-09-12] MEDS: SERTRALINE HCL 50 MG TABLET (FP) PO SCH (09:29)
[2020-09-12] MEDS: ATENOLOL 50 MG TABLET (FP) PO SCH (09:29)
[2020-09-12] MEDS: VALSARTAN 160 MG TABLET PO SCH (09:29)
[2020-09-12] MEDS: PANTOPRAZOLE 40 MG TABLET PO SCH (09:29)
[2020-09-12] MEDS: CHOLECALCIFEROL (VIT D3) 1,000 UNIT (25 MCG) TABLET PO SCH (09:29)
[2020-09-12] MEDS: ENOXAPARIN NA (PORCINE) 40 MG/0.4 ML DISP.SYRIN SQ SCH (09:29)
[2020-09-12] MEDS: amLODIPine BESYLATE 10 MG TABLET (FP) PO SCH (09:29)
[2020-09-12] MEDS: SODIUM CHLORIDE 1,000 ML IV SCH ×2 (16:35→21:08)
[2020-09-12] MEDS: ATORVASTATIN CA 20 MG TABLET (FP) PO SCH (21:07)
[2020-09-13] MEDS: METOCLOPRAMIDE HCL INJECTION 10 MG/2 ML VIAL IVPUSH SCH ×4 (03:54→21:31)
[2020-09-13] MEDS: ONDANSETRON 4 MG/2 ML VIAL IVPUSH SCH ×6 (03:54→23:15)
[2020-09-13] MEDS: ALPRAZolam 0.25 MG TABLET PO PRN (06:37)
[2020-09-13 08:24] LABS: BASO % 0.4 % (0-2.0); EOS % 3.8 % (0-4.5); HEMATOCRIT 35.3 % (32.4-45.2); HEMOGLOBIN 12.1 GM/dL (10.7-15.3); LYMPH % 28.8 % (8-40); MCH 32.3 pg (25.7-33.7); MCHC 34.4 g/dl (32.0-36.0); MEAN CELL VOLUME 93.8 fl (80-96); PLATELET COUNT 257 K/MM3 (134-434); RBC 3.76 M/mm3 (3.60-5.2); RDW 14.2 % (11.6-15.6); WHITE BLOOD COUNT 4.7 K/mm3 (4.0-10.0)
[2020-09-13 08:37] LABS: CALCIUM 8.8 mg/dL (8.5-10.1)
[2020-09-13 08:38] LABS: BLOOD UREA NITROGEN 5.1 mg/dL (7-18)
[2020-09-13 08:41] LABS: CREATININE 0.6 mg/dL (0.55-1.3)
[2020-09-13] MEDS ORDERED: PT OWN MED DRAWER 7, Y5N ONE (08:55)
[2020-09-13] MEDS: POTASSIUM CHLORIDE ORAL LIQUID 20 MEQ/15 ML PO SCH ×2 (08:59→21:31)
[2020-09-13] MEDS: CHOLECALCIFEROL (VIT D3) 1,000 UNIT (25 MCG) TABLET PO SCH (08:59)
[2020-09-13] MEDS: ENOXAPARIN NA (PORCINE) 40 MG/0.4 ML DISP.SYRIN SQ SCH (08:59)
[2020-09-13] MEDS: PANTOPRAZOLE 40 MG TABLET PO SCH (09:00)
[2020-09-13] MEDS: SERTRALINE HCL 50 MG TABLET (FP) PO SCH (09:00)
[2020-09-13] MEDS: ATENOLOL 50 MG TABLET (FP) PO SCH (09:00)
[2020-09-13] MEDS: amLODIPine BESYLATE 10 MG TABLET (FP) PO SCH (09:00)
[2020-09-13] MEDS: VALSARTAN 160 MG TABLET PO SCH (09:01)
[2020-09-13] MEDS: FAMOTIDINE 20 MG/50 ML IVPB 20 MG/50 ML MG IVPB SCH ×2 (09:01→21:30)
[2020-09-13] MEDS: ACETAMINOPHEN 325 MG TABLET (FP) PO PRN (11:02)
[2020-09-13] MEDS: HYDROmorphone HCl 2 MG/ML VIAL IVPB PRN ×2 (13:19→21:37)
[2020-09-13] MEDS: SODIUM CHLORIDE 1,000 ML IV SCH (16:00)
[2020-09-13] MEDS: ATORVASTATIN CA 20 MG TABLET (FP) PO SCH (21:30)
[2020-09-14] MEDS: ONDANSETRON 4 MG/2 ML VIAL IVPUSH SCH ×5 (03:38→20:32)
[2020-09-14] MEDS: METOCLOPRAMIDE HCL INJECTION 10 MG/2 ML VIAL IVPUSH SCH ×4 (03:38→22:32)
[2020-09-14] MEDS: ALPRAZolam 0.25 MG TABLET PO PRN (08:21)
[2020-09-14] MEDS: HYDROmorphone HCl 2 MG/ML VIAL IVPB PRN ×2 (08:30→22:29)
[2020-09-14 08:40] LABS: BASO % 0.5 % (0-2.0); EOS % 4.5 % (0-4.5); HEMATOCRIT 38.8 % (32.4-45.2); HEMOGLOBIN 13.3 GM/dL (10.7-15.3); LYMPH % 34.5 % (8-40); MCH 32.1 pg (25.7-33.7); MCHC 34.2 g/dl (32.0-36.0); MEAN CELL VOLUME 93.8 fl (80-96); MEAN PLT VOLUME 8.1 fl (7.5-11.1); MONO % 11.2 % (3.8-10.2); NEUT % 49.3 % (42.8-82.8); PLATELET COUNT 299 K/MM3 (134-434); RBC 4.13 M/mm3 (3.60-5.2); RDW 14.1 % (11.6-15.6); WHITE BLOOD COUNT 5.7 K/mm3 (4.0-10.0)
[2020-09-14 09:21] LABS: CALCIUM 9.4 mg/dL (8.5-10.1)
[2020-09-14 09:22] LABS: ALBUMIN 3.2 g/dl (3.4-5.0); BLOOD UREA NITROGEN 4.6 mg/dL (7-18)
[2020-09-14 09:25] LABS: CREATININE 0.6 mg/dL (0.55-1.3)
[2020-09-14 09:27] LABS: BILIRUBIN,TOTAL 0.5 mg/dL (0.2-1); TOT PROT 5.9 g/dl (6.4-8.2)
[2020-09-14] MEDS ORDERED: PT OWN MED DRAWER 7, Y5N ONE (10:35)
[2020-09-14] MEDS: VALSARTAN 160 MG TABLET PO SCH (10:40)
[2020-09-14] MEDS: ATENOLOL 50 MG TABLET (FP) PO SCH (10:41)
[2020-09-14] MEDS: amLODIPine BESYLATE 10 MG TABLET (FP) PO SCH (10:41)
[2020-09-14] MEDS: POTASSIUM CHLORIDE ORAL LIQUID 20 MEQ/15 ML PO SCH ×2 (10:41→22:32)
[2020-09-14] MEDS: PANTOPRAZOLE 40 MG TABLET PO SCH (10:41)
[2020-09-14] MEDS: SERTRALINE HCL 50 MG TABLET (FP) PO SCH (10:42)
[2020-09-14] MEDS: CHOLECALCIFEROL (VIT D3) 1,000 UNIT (25 MCG) TABLET PO SCH (10:42)
[2020-09-14] MEDS: FAMOTIDINE 20 MG/50 ML IVPB 20 MG/50 ML MG IVPB SCH ×2 (10:42→23:15)
[2020-09-14] MEDS: ENOXAPARIN NA (PORCINE) 40 MG/0.4 ML DISP.SYRIN SQ SCH (10:44)
[2020-09-14] MEDS: SODIUM CHLORIDE 1,000 ML IV SCH ×2 (14:16→17:18)
[2020-09-14] MEDS: AMINO ACIDS/PROTEIN HYDROLYS 30 ML LIQUID.PKT PO SCH (17:21)
[2020-09-14] MEDS: ATORVASTATIN CA 20 MG TABLET (FP) PO SCH (22:32)
[2020-09-15] MEDS: ONDANSETRON 4 MG/2 ML VIAL IVPUSH SCH ×7 (01:50→22:30)
[2020-09-15] MEDS: METOCLOPRAMIDE HCL INJECTION 10 MG/2 ML VIAL IVPUSH SCH ×4 (04:44→22:04)
[2020-09-15] MEDS: AMINO ACIDS/PROTEIN HYDROLYS 30 ML LIQUID.PKT PO SCH ×2 (07:36→17:55)
[2020-09-15] MEDS: ALPRAZolam 0.25 MG TABLET PO PRN ×2 (07:37→21:58)
[2020-09-15] MEDS: HYDROmorphone HCl 2 MG/ML VIAL IVPB PRN ×2 (07:37→18:17)
[2020-09-15] MEDS ORDERED: PT OWN MED DRAWER 7, Y5N ONE (09:27)
[2020-09-15] MEDS: VALSARTAN 160 MG TABLET PO SCH (09:29)
[2020-09-15] MEDS: SERTRALINE HCL 50 MG TABLET (FP) PO SCH (09:29)
[2020-09-15] MEDS: ATENOLOL 50 MG TABLET (FP) PO SCH (09:29)
[2020-09-15] MEDS: FAMOTIDINE 20 MG/50 ML IVPB 20 MG/50 ML MG IVPB SCH ×2 (09:29→21:58)
[2020-09-15] MEDS: amLODIPine BESYLATE 10 MG TABLET (FP) PO SCH (09:30)
[2020-09-15] MEDS: PANTOPRAZOLE 40 MG TABLET PO SCH (09:30)
[2020-09-15] MEDS: MULTIVIT-MINERALS ORAL LIQUID PO SCH (09:30)
[2020-09-15] MEDS: CHOLECALCIFEROL (VIT D3) 1,000 UNIT (25 MCG) TABLET PO SCH (09:30)
[2020-09-15] MEDS: POTASSIUM CHLORIDE ORAL LIQUID 20 MEQ/15 ML PO SCH ×2 (09:30→21:58)
[2020-09-15] MEDS: ACETAMINOPHEN 325 MG TABLET (FP) PO SCH ×3 (12:05→22:30)
[2020-09-15] MEDS: SODIUM CHLORIDE 1,000 ML IV SCH (12:54)
[2020-09-15] MEDS: ATORVASTATIN CA 20 MG TABLET (FP) PO SCH (21:58)
[2020-09-16] MEDS: METOCLOPRAMIDE HCL INJECTION 10 MG/2 ML VIAL IVPUSH SCH ×4 (04:39→20:44)
[2020-09-16] MEDS: ONDANSETRON 4 MG/2 ML VIAL IVPUSH SCH ×5 (04:39→19:19)
[2020-09-16] MEDS: ACETAMINOPHEN 325 MG TABLET (FP) PO SCH (05:51)
[2020-09-16] MEDS: ALPRAZolam 0.25 MG TABLET PO PRN ×2 (05:51→20:51)
[2020-09-16] MEDS: AMINO ACIDS/PROTEIN HYDROLYS 30 ML LIQUID.PKT PO SCH ×2 (08:27→17:18)
[2020-09-16] MEDS: MULTIVIT-MINERALS ORAL LIQUID PO SCH (09:15)
[2020-09-16] MEDS: CHOLECALCIFEROL (VIT D3) 1,000 UNIT (25 MCG) TABLET PO SCH (09:15)
[2020-09-16] MEDS: amLODIPine BESYLATE 10 MG TABLET (FP) PO SCH (09:15)
[2020-09-16] MEDS: PANTOPRAZOLE 40 MG TABLET PO SCH (09:15)
[2020-09-16] MEDS: ATENOLOL 50 MG TABLET (FP) PO SCH (09:15)
[2020-09-16] MEDS: FAMOTIDINE 20 MG/50 ML IVPB 20 MG/50 ML MG IVPB SCH ×2 (09:15→21:14)
[2020-09-16] MEDS: VALSARTAN 160 MG TABLET PO SCH (09:51)
[2020-09-16] MEDS: SERTRALINE HCL 50 MG TABLET (FP) PO SCH (09:51)
[2020-09-16] MEDS: POTASSIUM CHLORIDE ORAL LIQUID 20 MEQ/15 ML PO SCH ×2 (09:51→21:15)
[2020-09-16] MEDS ORDERED: cefTRIAXone SODIUM 1 GM VIAL ONE (11:45)
[2020-09-16] MEDS ORDERED: DEXTROSE 5%-WATER - 50 ML IVPB ONE (11:45)
[2020-09-16] MEDS: LACTOBACILLUS ACIDOPHILUS 1 TABLET PO SCH (11:48)
[2020-09-16] MEDS: HYDROmorphone HCl 2 MG/ML VIAL IVPB PRN ×2 (11:53→20:45)
[2020-09-16] MEDS: CEFTRIAXONE 1 GM in DEXTROSE 5%-WATER - 50 ML IVPB SCH (11:57)
[2020-09-16] MEDS: ATORVASTATIN CA 20 MG TABLET (FP) PO SCH (21:14)
[2020-09-17] MEDS: ONDANSETRON 4 MG/2 ML VIAL IVPUSH SCH ×6 (03:55→22:58)
[2020-09-17] MEDS: METOCLOPRAMIDE HCL INJECTION 10 MG/2 ML VIAL IVPUSH SCH ×4 (03:55→22:57)
[2020-09-17] MEDS: HYDROmorphone HCl 2 MG/ML VIAL IVPB PRN ×3 (06:36→16:50)
[2020-09-17] MEDS: ALPRAZolam 0.25 MG TABLET PO PRN (06:37)
[2020-09-17] MEDS: AMINO ACIDS/PROTEIN HYDROLYS 30 ML LIQUID.PKT PO SCH ×2 (09:11→16:53)
[2020-09-17] MEDS ORDERED: PT OWN MED DRAWER 7, Y5N ONE (10:00)
[2020-09-17] MEDS ORDERED: cefTRIAXone SODIUM 1 GM VIAL ONE (10:01)
[2020-09-17] MEDS ORDERED: DEXTROSE 5%-WATER - 50 ML IVPB ONE (10:01)
[2020-09-17] MEDS: SERTRALINE HCL 50 MG TABLET (FP) PO SCH (10:03)
[2020-09-17] MEDS: CHOLECALCIFEROL (VIT D3) 1,000 UNIT (25 MCG) TABLET PO SCH (10:04)
[2020-09-17] MEDS: PANTOPRAZOLE 40 MG TABLET PO SCH (10:04)
[2020-09-17] MEDS: VALSARTAN 160 MG TABLET PO SCH (10:04)
[2020-09-17] MEDS: LACTOBACILLUS ACIDOPHILUS 1 TABLET PO SCH (10:04)
[2020-09-17] MEDS: ATENOLOL 50 MG TABLET (FP) PO SCH (10:04)
[2020-09-17] MEDS: amLODIPine BESYLATE 10 MG TABLET (FP) PO SCH (10:04)
[2020-09-17] MEDS: POTASSIUM CHLORIDE ORAL LIQUID 20 MEQ/15 ML PO SCH ×2 (10:05→22:58)
[2020-09-17] MEDS: MULTIVIT-MINERALS ORAL LIQUID PO SCH (10:05)
[2020-09-17] MEDS: FAMOTIDINE 20 MG/50 ML IVPB 20 MG/50 ML MG IVPB SCH ×2 (11:25→22:58)
[2020-09-17] MEDS: CEFTRIAXONE 1 GM in DEXTROSE 5%-WATER - 50 ML IVPB SCH (12:21)
[2020-09-17] MEDS: ATORVASTATIN CA 20 MG TABLET (FP) PO SCH (22:58)
[2020-09-18] MEDS: ONDANSETRON 4 MG/2 ML VIAL IVPUSH SCH ×7 (00:24→23:00)
[2020-09-18] MEDS: HYDROmorphone HCl 2 MG/ML VIAL IVPB PRN ×4 (00:25→21:02)
[2020-09-18] MEDS: METOCLOPRAMIDE HCL INJECTION 10 MG/2 ML VIAL IVPUSH SCH ×4 (03:09→21:04)
[2020-09-18] MEDS ORDERED: DEXTROSE 5%-WATER - 50 ML IVPB ONE (08:43)
[2020-09-18] MEDS ORDERED: cefTRIAXone SODIUM 1 GM VIAL ONE (08:43)
[2020-09-18] MEDS: ALPRAZolam 0.25 MG TABLET PO PRN ×2 (08:44→20:17)
[2020-09-18] MEDS: CEFTRIAXONE 1 GM in DEXTROSE 5%-WATER - 50 ML IVPB SCH (08:59)
[2020-09-18] MEDS: amLODIPine BESYLATE 10 MG TABLET (FP) PO SCH (08:59)
[2020-09-18] MEDS: LACTOBACILLUS ACIDOPHILUS 1 TABLET PO SCH (08:59)
[2020-09-18] MEDS: CHOLECALCIFEROL (VIT D3) 1,000 UNIT (25 MCG) TABLET PO SCH (09:00)
[2020-09-18] MEDS: POTASSIUM CHLORIDE ORAL LIQUID 20 MEQ/15 ML PO SCH ×2 (09:00→21:04)
[2020-09-18] MEDS: SERTRALINE HCL 50 MG TABLET (FP) PO SCH (09:00)
[2020-09-18] MEDS: PANTOPRAZOLE 40 MG TABLET PO SCH (09:00)
[2020-09-18] MEDS: VALSARTAN 160 MG TABLET PO SCH (09:00)
[2020-09-18] MEDS: ATENOLOL 50 MG TABLET (FP) PO SCH (09:00)
[2020-09-18] MEDS ORDERED: PT OWN MED DRAWER 7, Y5N ONE ×2 (09:02→20:49)
[2020-09-18] MEDS: MULTIVIT-MINERALS ORAL LIQUID PO SCH (09:03)
[2020-09-18] MEDS: AMINO ACIDS/PROTEIN HYDROLYS 30 ML LIQUID.PKT PO SCH ×2 (09:03→17:34)
[2020-09-18] MEDS: FAMOTIDINE 20 MG/50 ML IVPB 20 MG/50 ML MG IVPB SCH ×2 (09:03→21:02)
[2020-09-18] MEDS: CEFUROXIME AXETIL 500 MG TABLET PO SCH ×2 (10:12→21:04)
[2020-09-18] MEDS: ATORVASTATIN CA 20 MG TABLET (FP) PO SCH (21:04)
[2020-09-19] MEDS: METOCLOPRAMIDE HCL INJECTION 10 MG/2 ML VIAL IVPUSH SCH ×2 (03:19→08:43)
[2020-09-19] MEDS: HYDROmorphone HCl 2 MG/ML VIAL IVPB PRN (03:19)
[2020-09-19] MEDS: ONDANSETRON 4 MG/2 ML VIAL IVPUSH SCH ×2 (03:23→06:52)
[2020-09-19] MEDS: ALPRAZolam 0.25 MG TABLET PO PRN (08:42)
[2020-09-19] MEDS: AMINO ACIDS/PROTEIN HYDROLYS 30 ML LIQUID.PKT PO SCH ×3 (08:42→17:20)
[2020-09-19] MEDS: FAMOTIDINE 20 MG/50 ML IVPB 20 MG/50 ML MG IVPB SCH (09:52)
[2020-09-19] MEDS ORDERED: PT OWN MED DRAWER 7, Y5N ONE ×3 (09:59→20:31)
[2020-09-19] MEDS: ATENOLOL 50 MG TABLET (FP) PO SCH (10:02)
[2020-09-19] MEDS: amLODIPine BESYLATE 10 MG TABLET (FP) PO SCH (10:02)
[2020-09-19] MEDS: LACTOBACILLUS ACIDOPHILUS 1 TABLET PO SCH (10:03)
[2020-09-19] MEDS: SERTRALINE HCL 50 MG TABLET (FP) PO SCH (10:03)
[2020-09-19] MEDS: VALSARTAN 160 MG TABLET PO SCH (10:03)
[2020-09-19] MEDS: CHOLECALCIFEROL (VIT D3) 1,000 UNIT (25 MCG) TABLET PO SCH (10:03)
[2020-09-19] MEDS: MULTIVIT-MINERALS ORAL LIQUID PO SCH (10:03)
[2020-09-19] MEDS: CEFUROXIME AXETIL 500 MG TABLET PO SCH ×2 (10:03→22:09)
[2020-09-19] MEDS: PANTOPRAZOLE 40 MG TABLET PO SCH (10:03)
[2020-09-19] MEDS: POTASSIUM CHLORIDE ORAL LIQUID 20 MEQ/15 ML PO SCH ×2 (10:03→22:08)
[2020-09-19] MEDS: ACETAMINOPHEN 325 MG TABLET (FP) PO PRN ×2 (10:12→17:21)
[2020-09-19] MEDS: FAMOTIDINE 20 MG TABLET PO SCH ×2 (10:12→22:09)
[2020-09-19] MEDS: METOCLOPRAMIDE HCL 10 MG TABLET (FP) PO SCH ×2 (12:22→17:20)
[2020-09-19] MEDS: ONDANSETRON *ODT* 4 MG TABLET SL PRN (19:13)
[2020-09-19] MEDS: ATORVASTATIN CA 20 MG TABLET (FP) PO SCH (22:09)
[2020-09-20] MEDS: ACETAMINOPHEN 325 MG TABLET (FP) PO PRN ×4 (01:15→15:05)
[2020-09-20] MEDS: METOCLOPRAMIDE HCL 10 MG TABLET (FP) PO SCH ×3 (01:15→13:54)
[2020-09-20] MEDS ORDERED: PT OWN MED DRAWER 7, Y5N ONE ×3 (08:30→15:04)
[2020-09-20] MEDS: ONDANSETRON *ODT* 4 MG TABLET SL PRN (08:34)
[2020-09-20] MEDS: ALPRAZolam 0.25 MG TABLET PO PRN ×2 (08:37→13:54)
[2020-09-20] MEDS: AMINO ACIDS/PROTEIN HYDROLYS 30 ML LIQUID.PKT PO SCH ×3 (08:39→13:54)
[2020-09-20] MEDS: POTASSIUM CHLORIDE ORAL LIQUID 20 MEQ/15 ML PO SCH (10:08)
[2020-09-20] MEDS: LACTOBACILLUS ACIDOPHILUS 1 TABLET PO SCH (10:09)
[2020-09-20] MEDS: SERTRALINE HCL 50 MG TABLET (FP) PO SCH (10:09)
[2020-09-20] MEDS: CEFUROXIME AXETIL 500 MG TABLET PO SCH (10:09)
[2020-09-20] MEDS: amLODIPine BESYLATE 10 MG TABLET (FP) PO SCH (10:09)
[2020-09-20] MEDS: MULTIVIT-MINERALS ORAL LIQUID PO SCH (10:09)
[2020-09-20] MEDS: VALSARTAN 160 MG TABLET PO SCH (10:09)
[2020-09-20] MEDS: ATENOLOL 50 MG TABLET (FP) PO SCH (10:09)
[2020-09-20] MEDS: CHOLECALCIFEROL (VIT D3) 1,000 UNIT (25 MCG) TABLET PO SCH (10:09)
[2020-09-20] MEDS: PANTOPRAZOLE 40 MG TABLET PO SCH (10:09)
[2020-09-20] MEDS: FAMOTIDINE 20 MG TABLET PO SCH (10:09)
[2020-09-20 15:45] VITALS: BP 161/73; PULSE 74; TEMP 98.2
== END 2020-09-20 16:51 | disposition home health service (06) | DRG 327 ==
LOC: JER 13:48 → JERBED 16:53 → J8W 22:16
PROVIDERS: ADMIT Internal Medicine; ATTEND Internal Medicine
PROC: 0DB68ZX Excision of Stomach, Via Natural or Artificial Opening Endoscopic, Diagnostic (ICD-10-PCS; 2020-09-01)
PROC: 0DB48ZX Excision of Esophagogastric Junction, Via Natural or Artificial Opening Endoscopic, Diagnostic (ICD-10-PCS; 2020-09-01)
PROC: 0BQT4ZZ Repair Diaphragm, Percutaneous Endoscopic Approach (ICD-10-PCS; principal; 2020-09-07 12:00)
DX: K44.9 Diaphragmatic hernia without obstruction or gangrene (principal); I24.8 Other forms of acute ischemic heart disease; N39.0 Urinary tract infection, site not specified; I10 Essential (primary) hypertension; E78.5 Hyperlipidemia, unspecified; J44.9 Chronic obstructive pulmonary disease, unspecified; K27.9 Peptic ulcer, site unspecified, unspecified as acute or chronic, without hemorrhage or perforation; K22.70 Barrett's esophagus without dysplasia; Z85.118 Personal history of other malignant neoplasm of bronchus and lung; D86.0 Sarcoidosis of lung; K29.50 Unspecified chronic gastritis without bleeding; K57.90 Diverticulosis of intestine, part unspecified, without perforation or abscess without bleeding
CPT/HCPCS: 36415; 71046-TC-FY; 74018-TC-FY; 74177-TC; 74220-TC-FY; 74240-TC-FY; 80048; 80053; 81003; 82550; 83690; 83735; 84100; 84484; 85025; 85027; 85610; 85730; 86850; 86900; 86901; 87086; 87186; 88302-TC; 88305-TC; 93005; 93010; 94010; 94760; 97116-GP; 99285-25; C9803; J0131; J1100; Q0162; Q9967; U0003; U0005

== ENCOUNTER 2020-09-23 23:44 | Inpatient (IN) | payer OTHER ==
[2020-09-24] VITALS: BMI 29.2
[2020-09-24] MEDS ORDERED: SODIUM CHLORIDE 0.9% 1000 ML INFUS.BAG IV ONE ×2 (00:20→02:51)
[2020-09-24] MEDS ORDERED: MAG HYDROX/AL HYDROX/SIMETH 30 ML UNIT-DOSE CUP PO ONE (00:20)
[2020-09-24] MEDS ORDERED: METOCLOPRAMIDE HCL INJECTION 10 MG/2 ML VIAL IVPUSH ONE (00:20)
[2020-09-24] MEDS ORDERED: FAMOTIDINE 20 MG/50 ML IVPB 20 MG/50 ML MG IVPB ONE ×2 (00:21→00:54)
[2020-09-24] MEDS ORDERED: MAG HYDROX/AL HYDROX/SIMETH 30 ML UNIT-DOSE CUP ONE (00:53)
[2020-09-24] MEDS ORDERED: METOCLOPRAMIDE HCL INJECTION 10 MG/2 ML VIAL ONE (00:53)
[2020-09-24 02:09] LABS: BASO % 0.1 % (0-2.0); HEMATOCRIT 43.6 % (32.4-45.2); HEMOGLOBIN 15.1 GM/dL (10.7-15.3); LYMPH % 14.5 % (8-40); MCH 31.7 pg (25.7-33.7); MCHC 34.6 g/dl (32.0-36.0); MEAN CELL VOLUME 91.6 fl (80-96); MEAN PLT VOLUME 8.8 fl (7.5-11.1); MONO % 12.9 % (3.8-10.2); NEUT % 72.5 % (42.8-82.8); PLATELET COUNT 393 K/MM3 (134-434); RBC 4.76 M/mm3 (3.60-5.2); RDW 13.6 % (11.6-15.6); WHITE BLOOD COUNT 7.3 K/mm3 (4.0-10.0)
[2020-09-24 02:18] LABS: INR 1.18 (0.83-1.09); PROTHROMBIN TIME (PATIENT) 14.5 SEC (9.7-13.0)
[2020-09-24 02:21] LABS: ACTIVATED PTT 25.5 SECONDS (25.2-36.5)
[2020-09-24 02:39] LABS: CALCIUM 9.7 mg/dL (8.5-10.1)
[2020-09-24 02:40] LABS: MAGNESIUM 2.1 mg/dL (1.8-2.4)
[2020-09-24 02:43] LABS: CREATININE 0.8 mg/dL (0.55-1.3); PHOSPHOROUS 3.4 mg/dL (2.5-4.9)
[2020-09-24 02:44] LABS: BILIRUBIN,TOTAL 0.9 mg/dL (0.2-1)
[2020-09-24 02:45] LABS: TOT PROT 7.4 g/dl (6.4-8.2)
[2020-09-24 02:48] LABS: ALBUMIN 3.9 g/dl (3.4-5.0); BLOOD UREA NITROGEN 31.6 mg/dL (7-18)
[2020-09-24] MEDS ORDERED: POTASSIUM CHLORIDE ORAL LIQUID 20 MEQ/15 ML PO ONE (02:54)
[2020-09-24] MEDS ORDERED: KCL 10 MEQ IVPB 10 MEQ/100 ML INFUS.BAG IVPB SCH (03:00)
[2020-09-24] MEDS ORDERED: POTASSIUM CHLORIDE ORAL LIQUID 20 MEQ/15 ML ONE (03:14)
[2020-09-24 05:46] LABS: EPI CELLS >36 /uL (0-25.1); HYALINE CASTS 7 /uL (0-3.1); URINE APPEARANCE CLEAR; URINE BACTERIA 76 /uL (0-1359); URINE BILIRUBIN NEGATIVE (NEGATIVE); URINE COLOR YELLOW; URINE GLUCOSE (UA) TRACE (NEGATIVE); URINE KETONE 2+ (NEGATIVE); URINE LEUK ESTERASE 1+ (NEGATIVE); URINE NITRITE NEGATIVE (NEGATIVE); URINE PROTEIN 1+ (NEGATIVE); URINE RBC 22 /uL (0-23.9); URINE UROBILINOGEN 0.2 mg/dL (0.2-1.0); URINE WBC 60 /uL (0-25.8)
[2020-09-24] MEDS ORDERED: POTASSIUM CHLORIDE TABS 20 MEQ TABLET.ER (FP) PO ONE (09:16)
[2020-09-24] MEDS ORDERED: ONDANSETRON *ODT* 4 MG TABLET ONE (09:16)
[2020-09-24] MEDS ORDERED: HEPARIN NA (PORCINE) 5,000 UNITS/ML 1ML VIAL ONE (09:17)
[2020-09-24] MEDS ORDERED: SERTRALINE HCL 50 MG TABLET (FP) ONE (09:17)
[2020-09-24] MEDS: HEPARIN NA (PORCINE) 5,000 UNITS/ML 1ML VIAL SQ SCH ×2 (09:35→22:30)
[2020-09-24] MEDS: SERTRALINE HCL 50 MG TABLET (FP) PO SCH (09:36)
[2020-09-24] MEDS: ONDANSETRON 4 MG TABLET PO PRN (09:36)
[2020-09-24] MEDS: SODIUM CHLORIDE 1,000 ML IV SCH (09:45)
[2020-09-24] MEDS ORDERED: oxyCODONE HCL 5 MG TABLET PO PRN (10:10)
[2020-09-24] MEDS ORDERED: ACETAMINOPHEN 325 MG TABLET (FP) PO PRN (10:10)
[2020-09-24 10:26] LABS: YEAST FEW (NEGATIVE)
[2020-09-24] MEDS: CHOLECALCIFEROL (VIT D3) 1,000 UNIT (25 MCG) TABLET PO SCH (11:51)
[2020-09-24] MEDS: amLODIPine BESYLATE 10 MG TABLET (FP) PO SCH (11:52)
[2020-09-24] MEDS: PANTOPRAZOLE 40 MG TABLET PO SCH (11:52)
[2020-09-24] MEDS: ATENOLOL 50 MG TABLET (FP) PO SCH (11:58)
[2020-09-24] MEDS: LACTOBACILLUS ACIDOPHILUS 1 TABLET PO SCH (11:58)
[2020-09-24] MEDS: POTASSIUM CHLORIDE TABS 10 MEQ TABLET.ER (FP) PO SCH (11:58)
[2020-09-24] MEDS: ATORVASTATIN CA 20 MG TABLET (FP) PO SCH (11:58)
[2020-09-24] MEDS: MULTIVIT-MINERALS ORAL LIQUID PO SCH (11:58)
[2020-09-24] MEDS: VALSARTAN 160 MG TABLET PO SCH (11:58)
[2020-09-24] MEDS: AMINO ACIDS/PROTEIN HYDROLYS 30 ML LIQUID.PKT PO SCH ×2 (11:59→16:36)
[2020-09-24] MEDS: ALPRAZolam 0.25 MG TABLET PO PRN ×2 (17:50→22:30)
[2020-09-25] MEDS: SODIUM CHLORIDE 1,000 ML IV SCH ×3 (01:11→14:36)
[2020-09-25] MEDS: ONDANSETRON 4 MG TABLET PO PRN ×2 (06:03→22:03)
[2020-09-25] MEDS: ALPRAZolam 0.25 MG TABLET PO PRN ×3 (06:03→22:03)
[2020-09-25 09:29] LABS: BASO % 0.2 % (0-2.0); EOS % 0.4 % (0-4.5); HEMATOCRIT 39.3 % (32.4-45.2); HEMOGLOBIN 14.1 GM/dL (10.7-15.3); LYMPH % 31.8 % (8-40); MCH 32.2 pg (25.7-33.7); MCHC 35.8 g/dl (32.0-36.0); MEAN PLT VOLUME 8.4 fl (7.5-11.1); NEUT % 55.6 % (42.8-82.8); PLATELET COUNT 335 K/MM3 (134-434); RBC 4.37 M/mm3 (3.60-5.2); RDW 13.6 % (11.6-15.6); WHITE BLOOD COUNT 5.5 K/mm3 (4.0-10.0)
[2020-09-25 09:50] LABS: BLOOD UREA NITROGEN 14.6 mg/dL (7-18); CALCIUM 8.3 mg/dL (8.5-10.1)
[2020-09-25 09:51] LABS: ALBUMIN 3.2 g/dl (3.4-5.0); MAGNESIUM 1.7 mg/dL (1.8-2.4)
[2020-09-25 09:53] LABS: CREATININE 0.4 mg/dL (0.55-1.3)
[2020-09-25 09:55] LABS: BILIRUBIN,TOTAL 1.3 mg/dL (0.2-1)
[2020-09-25] MEDS: ATENOLOL 50 MG TABLET (FP) PO SCH (10:46)
[2020-09-25] MEDS: PANTOPRAZOLE 40 MG TABLET PO SCH (10:46)
[2020-09-25] MEDS: CHOLECALCIFEROL (VIT D3) 1,000 UNIT (25 MCG) TABLET PO SCH (10:46)
[2020-09-25] MEDS: SERTRALINE HCL 50 MG TABLET (FP) PO SCH (10:46)
[2020-09-25] MEDS: AMINO ACIDS/PROTEIN HYDROLYS 30 ML LIQUID.PKT PO SCH ×3 (10:46→17:53)
[2020-09-25] MEDS: VALSARTAN 160 MG TABLET PO SCH (10:47)
[2020-09-25] MEDS: ATORVASTATIN CA 20 MG TABLET (FP) PO SCH (10:47)
[2020-09-25] MEDS: LACTOBACILLUS ACIDOPHILUS 1 TABLET PO SCH (10:47)
[2020-09-25] MEDS: POTASSIUM CHLORIDE TABS 10 MEQ TABLET.ER (FP) PO SCH (10:47)
[2020-09-25] MEDS: HEPARIN NA (PORCINE) 5,000 UNITS/ML 1ML VIAL SQ SCH ×2 (10:47→22:03)
[2020-09-25] MEDS: MULTIVIT-MINERALS ORAL LIQUID PO SCH (10:47)
[2020-09-25] MEDS: amLODIPine BESYLATE 10 MG TABLET (FP) PO SCH (10:48)
[2020-09-25] MEDS ORDERED: ONDANSETRON 4 MG/2 ML VIAL IVPB STA (13:20)
[2020-09-25] MEDS: SUCRALFATE 1 GM/10 ML UNIT DOSE CUPS PO SCH ×4 (14:38→22:13)
[2020-09-26] MEDS: ALPRAZolam 0.25 MG TABLET PO PRN ×3 (06:08→19:02)
[2020-09-26] MEDS: ONDANSETRON 4 MG TABLET PO PRN (06:08)
[2020-09-26 08:50] LABS: ALBUMIN 3.2 g/dl (3.4-5.0); BLOOD UREA NITROGEN 19.8 mg/dL (7-18)
[2020-09-26 08:51] LABS: CALCIUM 8.4 mg/dL (8.5-10.1)
[2020-09-26 08:53] LABS: CREATININE 0.5 mg/dL (0.55-1.3)
[2020-09-26 08:58] LABS: TOT PROT 5.9 g/dl (6.4-8.2)
[2020-09-26] MEDS ORDERED: PT OWN MED DRAWER 7, Y5N ONE ×2 (11:20→19:33)
[2020-09-26] MEDS: PANTOPRAZOLE 40 MG TABLET PO SCH (11:22)
[2020-09-26] MEDS: ATORVASTATIN CA 20 MG TABLET (FP) PO SCH (11:22)
[2020-09-26] MEDS: amLODIPine BESYLATE 10 MG TABLET (FP) PO SCH (11:22)
[2020-09-26] MEDS: ATENOLOL 50 MG TABLET (FP) PO SCH (11:22)
[2020-09-26] MEDS: CHOLECALCIFEROL (VIT D3) 1,000 UNIT (25 MCG) TABLET PO SCH (11:22)
[2020-09-26] MEDS: LACTOBACILLUS ACIDOPHILUS 1 TABLET PO SCH (11:23)
[2020-09-26] MEDS: POTASSIUM CHLORIDE TABS 10 MEQ TABLET.ER (FP) PO SCH (11:23)
[2020-09-26] MEDS: SODIUM CHLORIDE 1,000 ML IV SCH (11:23)
[2020-09-26] MEDS: AMINO ACIDS/PROTEIN HYDROLYS 30 ML LIQUID.PKT PO SCH ×3 (11:24→16:52)
[2020-09-26] MEDS: MULTIVIT-MINERALS ORAL LIQUID PO SCH (11:24)
[2020-09-26] MEDS: SUCRALFATE 1 GM/10 ML UNIT DOSE CUPS PO SCH ×2 (11:24→13:37)
[2020-09-26] MEDS: HEPARIN NA (PORCINE) 5,000 UNITS/ML 1ML VIAL SQ SCH ×2 (11:25→21:23)
[2020-09-26] MEDS: VALSARTAN 160 MG TABLET PO SCH (11:25)
[2020-09-26] MEDS: SERTRALINE HCL 50 MG TABLET (FP) PO SCH (11:25)
[2020-09-26] MEDS: MELATONIN 5 MG TABLETS PO PRN (23:33)
[2020-09-27] MEDS: SODIUM CHLORIDE 1,000 ML IV SCH (05:51)
[2020-09-27] MEDS: ALPRAZolam 0.25 MG TABLET PO PRN ×3 (06:01→21:05)
[2020-09-27] MEDS ORDERED: PT OWN MED DRAWER 7, Y5N ONE (09:46)
[2020-09-27 09:47] LABS: BLOOD UREA NITROGEN 15.3 mg/dL (7-18)
[2020-09-27 09:51] LABS: CREATININE 0.6 mg/dL (0.55-1.3)
[2020-09-27] MEDS: LACTOBACILLUS ACIDOPHILUS 1 TABLET PO SCH (09:56)
[2020-09-27] MEDS: POTASSIUM CHLORIDE TABS 10 MEQ TABLET.ER (FP) PO SCH (09:56)
[2020-09-27] MEDS: SERTRALINE HCL 50 MG TABLET (FP) PO SCH (09:56)
[2020-09-27] MEDS: ATENOLOL 50 MG TABLET (FP) PO SCH (09:56)
[2020-09-27] MEDS: amLODIPine BESYLATE 10 MG TABLET (FP) PO SCH (09:57)
[2020-09-27] MEDS: ATORVASTATIN CA 20 MG TABLET (FP) PO SCH (09:57)
[2020-09-27] MEDS: PANTOPRAZOLE 40 MG TABLET PO SCH (09:57)
[2020-09-27] MEDS: CHOLECALCIFEROL (VIT D3) 1,000 UNIT (25 MCG) TABLET PO SCH (09:57)
[2020-09-27] MEDS: AMINO ACIDS/PROTEIN HYDROLYS 30 ML LIQUID.PKT PO SCH ×4 (09:57→18:07)
[2020-09-27] MEDS: HEPARIN NA (PORCINE) 5,000 UNITS/ML 1ML VIAL SQ SCH ×2 (09:58→21:05)
[2020-09-27] MEDS: VALSARTAN 160 MG TABLET PO SCH (09:58)
[2020-09-27] MEDS: MULTIVIT-MINERALS ORAL LIQUID PO SCH (09:58)
[2020-09-27] MEDS ORDERED: POTASSIUM CHLORIDE TABS 20 MEQ TABLET.ER (FP) PO ONE ×2 (10:45→15:00)
[2020-09-27] MEDS: AMINO ACIDS 4.25%/D5W 1,000 ML IV SCH (18:06)
[2020-09-27 20:43] LABS: CALCIUM 8.1 mg/dL (8.5-10.1)
[2020-09-27 20:47] LABS: CREATININE 0.4 mg/dL (0.55-1.3)
[2020-09-27] MEDS: MELATONIN 5 MG TABLETS PO PRN (21:05)
[2020-09-28 08:36] LABS: CALCIUM 8.4 mg/dL (8.5-10.1)
[2020-09-28 08:37] LABS: BLOOD UREA NITROGEN 19.7 mg/dL (7-18)
[2020-09-28 08:40] LABS: CREATININE 0.5 mg/dL (0.55-1.3)
[2020-09-28] MEDS: AMINO ACIDS/PROTEIN HYDROLYS 30 ML LIQUID.PKT PO SCH ×4 (09:37→17:33)
[2020-09-28] MEDS: PANTOPRAZOLE 40 MG TABLET PO SCH (09:38)
[2020-09-28] MEDS: POTASSIUM CHLORIDE TABS 10 MEQ TABLET.ER (FP) PO SCH (09:38)
[2020-09-28] MEDS: SERTRALINE HCL 50 MG TABLET (FP) PO SCH (09:38)
[2020-09-28] MEDS: CHOLECALCIFEROL (VIT D3) 1,000 UNIT (25 MCG) TABLET PO SCH (09:38)
[2020-09-28] MEDS: amLODIPine BESYLATE 10 MG TABLET (FP) PO SCH (09:38)
[2020-09-28] MEDS: ATENOLOL 50 MG TABLET (FP) PO SCH (09:38)
[2020-09-28] MEDS: ATORVASTATIN CA 20 MG TABLET (FP) PO SCH (09:38)
[2020-09-28] MEDS: LACTOBACILLUS ACIDOPHILUS 1 TABLET PO SCH (09:38)
[2020-09-28] MEDS: VALSARTAN 160 MG TABLET PO SCH (09:39)
[2020-09-28] MEDS: ALPRAZolam 0.25 MG TABLET PO PRN ×2 (09:39→21:14)
[2020-09-28] MEDS: HEPARIN NA (PORCINE) 5,000 UNITS/ML 1ML VIAL SQ SCH ×2 (09:55→21:14)
[2020-09-28] MEDS: MULTIVIT-MINERALS ORAL LIQUID PO SCH ×2 (10:01→10:20)
[2020-09-28] MEDS: oxyCODONE HCL 5 MG TABLET PO PRN (13:05)
[2020-09-28] MEDS: NYSTATIN POWDER 100,000 UNITS/GM - 15 GM TOPICAL POWDER TP SCH (13:07)
[2020-09-28] MEDS: AMINO ACIDS 4.25%/D5W 1,000 ML IV SCH (14:39)
[2020-09-28] MEDS: ONDANSETRON 4 MG TABLET PO PRN (20:36)
[2020-09-28] MEDS: MELATONIN 5 MG TABLETS PO PRN (21:23)
[2020-09-29] MEDS: ONDANSETRON 4 MG TABLET PO PRN (06:19)
[2020-09-29] MEDS: ALPRAZolam 0.25 MG TABLET PO PRN ×2 (06:19→22:58)
[2020-09-29] MEDS: oxyCODONE HCL 5 MG TABLET PO PRN (06:19)
[2020-09-29 07:41] LABS: BASO % 0.2 % (0-2.0); EOS % 1.3 % (0-4.5); HEMATOCRIT 36.7 % (32.4-45.2); HEMOGLOBIN 13.4 GM/dL (10.7-15.3); LYMPH % 32.3 % (8-40); MCH 32.5 pg (25.7-33.7); MCHC 36.5 g/dl (32.0-36.0); MEAN CELL VOLUME 88.9 fl (80-96); MEAN PLT VOLUME 8.5 fl (7.5-11.1); MONO % 9.3 % (3.8-10.2); NEUT % 56.9 % (42.8-82.8); PLATELET COUNT 313 K/MM3 (134-434); RBC 4.13 M/mm3 (3.60-5.2); RDW 13.6 % (11.6-15.6)
[2020-09-29 08:02] LABS: CALCIUM 8.5 mg/dL (8.5-10.1)
[2020-09-29 08:03] LABS: ALBUMIN 3.2 g/dl (3.4-5.0); BLOOD UREA NITROGEN 18.1 mg/dL (7-18)
[2020-09-29 08:06] LABS: CREATININE 0.6 mg/dL (0.55-1.3)
[2020-09-29 08:07] LABS: BILIRUBIN,TOTAL 0.6 mg/dL (0.2-1); TOT PROT 5.8 g/dl (6.4-8.2)
[2020-09-29] MEDS: AMINO ACIDS/PROTEIN HYDROLYS 30 ML LIQUID.PKT PO SCH ×3 (08:48→18:13)
[2020-09-29] MEDS ORDERED: PT OWN MED DRAWER 7, Y5N ONE (10:49)
[2020-09-29] MEDS: CHOLECALCIFEROL (VIT D3) 1,000 UNIT (25 MCG) TABLET PO SCH (10:52)
[2020-09-29] MEDS: SERTRALINE HCL 50 MG TABLET (FP) PO SCH (10:53)
[2020-09-29] MEDS: VALSARTAN 160 MG TABLET PO SCH (10:53)
[2020-09-29] MEDS: ATORVASTATIN CA 20 MG TABLET (FP) PO SCH (10:53)
[2020-09-29] MEDS: HEPARIN NA (PORCINE) 5,000 UNITS/ML 1ML VIAL SQ SCH ×2 (10:53→22:58)
[2020-09-29] MEDS: amLODIPine BESYLATE 10 MG TABLET (FP) PO SCH (10:53)
[2020-09-29] MEDS: POTASSIUM CHLORIDE TABS 10 MEQ TABLET.ER (FP) PO SCH (10:53)
[2020-09-29] MEDS: LACTOBACILLUS ACIDOPHILUS 1 TABLET PO SCH (10:54)
[2020-09-29] MEDS: ATENOLOL 50 MG TABLET (FP) PO SCH (10:54)
[2020-09-29] MEDS: PANTOPRAZOLE 40 MG TABLET PO SCH (10:54)
[2020-09-29] MEDS: MULTIVIT-MINERALS ORAL LIQUID PO SCH ×2 (10:55→11:17)
[2020-09-29] MEDS: NYSTATIN POWDER 100,000 UNITS/GM - 15 GM TOPICAL POWDER TP SCH (13:00)
[2020-09-29] MEDS: POTASSIUM CHLORIDE 40 MEQ in AMINO ACIDS 4.25%/D5W 1,000 ML IV SCH (13:57)
[2020-09-29] MEDS ORDERED: METOCLOPRAMIDE HCL INJECTION 10 MG/2 ML VIAL IVPUSH PRN (14:27)
[2020-09-29] MEDS: METOCLOPRAMIDE HCL INJECTION 10 MG/2 ML VIAL IVPUSH SCH ×2 (15:41→22:59)
[2020-09-29] MEDS: MIRTAZAPINE 15 MG TABLET (FP) PO SCH (22:58)
[2020-09-29] MEDS: MELATONIN 5 MG TABLETS PO PRN (22:58)
[2020-09-30] MEDS: NYSTATIN POWDER 100,000 UNITS/GM - 15 GM TOPICAL POWDER TP SCH ×3 (01:22→21:04)
[2020-09-30] MEDS: METOCLOPRAMIDE HCL INJECTION 10 MG/2 ML VIAL IVPUSH SCH ×3 (07:15→21:58)
[2020-09-30] MEDS: AMINO ACIDS/PROTEIN HYDROLYS 30 ML LIQUID.PKT PO SCH ×3 (08:48→18:14)
[2020-09-30] MEDS ORDERED: PT OWN MED DRAWER 7, Y5N ONE (09:59)
[2020-09-30] MEDS: HEPARIN NA (PORCINE) 5,000 UNITS/ML 1ML VIAL SQ SCH ×2 (10:02→21:02)
[2020-09-30] MEDS: ATENOLOL 50 MG TABLET (FP) PO SCH (10:03)
[2020-09-30] MEDS: CHOLECALCIFEROL (VIT D3) 1,000 UNIT (25 MCG) TABLET PO SCH (10:03)
[2020-09-30] MEDS: PANTOPRAZOLE 40 MG TABLET PO SCH (10:03)
[2020-09-30] MEDS: LACTOBACILLUS ACIDOPHILUS 1 TABLET PO SCH (10:03)
[2020-09-30] MEDS: amLODIPine BESYLATE 10 MG TABLET (FP) PO SCH (10:03)
[2020-09-30] MEDS: VALSARTAN 160 MG TABLET PO SCH (10:03)
[2020-09-30] MEDS: ATORVASTATIN CA 20 MG TABLET (FP) PO SCH (10:03)
[2020-09-30] MEDS: MULTIVIT-MINERALS ORAL LIQUID PO SCH (10:04)
[2020-09-30] MEDS: POTASSIUM CHLORIDE TABS 10 MEQ TABLET.ER (FP) PO SCH (10:04)
[2020-09-30] MEDS: POTASSIUM CHLORIDE 40 MEQ in AMINO ACIDS 4.25%/D5W 1,000 ML IV SCH (13:49)
[2020-09-30] MEDS: ALPRAZolam 0.25 MG TABLET PO PRN ×2 (13:50→21:02)
[2020-09-30] MEDS: MELATONIN 5 MG TABLETS PO PRN (21:02)
[2020-09-30] MEDS: MIRTAZAPINE 15 MG TABLET (FP) PO SCH (21:02)
[2020-09-30] MEDS: ACETAMINOPHEN 325 MG TABLET (FP) PO PRN (21:06)
[2020-09-30] MEDS ORDERED: POLYETHYLENE GLYCOL 3350 119 GM BTL PO ONE (21:15)
[2020-10-01] MEDS: METOCLOPRAMIDE HCL INJECTION 10 MG/2 ML VIAL IVPUSH SCH ×3 (06:15→22:21)
[2020-10-01 08:37] LABS: BASO % 0.5 % (0-2.0); EOS % 1.2 % (0-4.5); HEMOGLOBIN 13.1 GM/dL (10.7-15.3); LYMPH % 40.3 % (8-40); MCH 32.1 pg (25.7-33.7); MCHC 35.4 g/dl (32.0-36.0); MEAN CELL VOLUME 90.7 fl (80-96); MONO % 15.1 % (3.8-10.2); NEUT % 42.9 % (42.8-82.8); PLATELET COUNT 317 K/MM3 (134-434); RBC 4.07 M/mm3 (3.60-5.2); RDW 13.7 % (11.6-15.6); WHITE BLOOD COUNT 4.9 K/mm3 (4.0-10.0)
[2020-10-01 08:39] LABS: BLOOD UREA NITROGEN 18.7 mg/dL (7-18); CALCIUM 8.8 mg/dL (8.5-10.1)
[2020-10-01 08:42] LABS: CREATININE 0.6 mg/dL (0.55-1.3)
[2020-10-01 08:44] LABS: TOT PROT 5.7 g/dl (6.4-8.2)
[2020-10-01 08:46] LABS: BILIRUBIN,TOTAL 0.5 mg/dL (0.2-1)
[2020-10-01] MEDS ORDERED: PT OWN MED DRAWER 7, Y5N ONE (10:19)
[2020-10-01] MEDS: PANTOPRAZOLE 40 MG TABLET PO SCH (10:21)
[2020-10-01] MEDS: ATENOLOL 50 MG TABLET (FP) PO SCH (10:21)
[2020-10-01] MEDS: VALSARTAN 160 MG TABLET PO SCH (10:21)
[2020-10-01] MEDS: amLODIPine BESYLATE 10 MG TABLET (FP) PO SCH (10:21)
[2020-10-01] MEDS: POTASSIUM CHLORIDE TABS 10 MEQ TABLET.ER (FP) PO SCH (10:22)
[2020-10-01] MEDS: HEPARIN NA (PORCINE) 5,000 UNITS/ML 1ML VIAL SQ SCH ×2 (10:22→22:17)
[2020-10-01] MEDS: CHOLECALCIFEROL (VIT D3) 1,000 UNIT (25 MCG) TABLET PO SCH (10:22)
[2020-10-01] MEDS: LACTOBACILLUS ACIDOPHILUS 1 TABLET PO SCH (10:22)
[2020-10-01] MEDS: ATORVASTATIN CA 20 MG TABLET (FP) PO SCH (10:22)
[2020-10-01] MEDS: AMINO ACIDS/PROTEIN HYDROLYS 30 ML LIQUID.PKT PO SCH ×3 (10:23→18:08)
[2020-10-01] MEDS: MULTIVIT-MINERALS ORAL LIQUID PO SCH (10:23)
[2020-10-01] MEDS: NYSTATIN POWDER 100,000 UNITS/GM - 15 GM TOPICAL POWDER TP SCH ×2 (10:24→22:21)
[2020-10-01 10:52] LABS: PLATELET ESTIMATE NORMAL
[2020-10-01] MEDS: ALPRAZolam 0.25 MG TABLET PO PRN ×2 (13:31→22:28)
[2020-10-01] MEDS: POTASSIUM CHLORIDE 40 MEQ in AMINO ACIDS 4.25%/D5W 1,000 ML IV SCH (16:41)
[2020-10-01] MEDS: MIRTAZAPINE 15 MG TABLET (FP) PO SCH (22:17)
[2020-10-01] MEDS: MELATONIN 5 MG TABLETS PO PRN (22:28)
[2020-10-02] MEDS: METOCLOPRAMIDE HCL INJECTION 10 MG/2 ML VIAL IVPUSH SCH ×3 (06:12→23:01)
[2020-10-02] MEDS ORDERED: PT OWN MED DRAWER 7, Y5N ONE (10:05)
[2020-10-02] MEDS: PANTOPRAZOLE 40 MG TABLET PO SCH (10:08)
[2020-10-02] MEDS: LACTOBACILLUS ACIDOPHILUS 1 TABLET PO SCH (10:08)
[2020-10-02] MEDS: POTASSIUM CHLORIDE TABS 10 MEQ TABLET.ER (FP) PO SCH (10:08)
[2020-10-02] MEDS: AMINO ACIDS/PROTEIN HYDROLYS 30 ML LIQUID.PKT PO SCH ×3 (10:08→17:40)
[2020-10-02] MEDS: ATENOLOL 50 MG TABLET (FP) PO SCH (10:08)
[2020-10-02] MEDS: ATORVASTATIN CA 20 MG TABLET (FP) PO SCH (10:08)
[2020-10-02] MEDS: CHOLECALCIFEROL (VIT D3) 1,000 UNIT (25 MCG) TABLET PO SCH (10:09)
[2020-10-02] MEDS: MULTIVIT-MINERALS ORAL LIQUID PO SCH (10:09)
[2020-10-02] MEDS: amLODIPine BESYLATE 10 MG TABLET (FP) PO SCH (10:09)
[2020-10-02] MEDS: HEPARIN NA (PORCINE) 5,000 UNITS/ML 1ML VIAL SQ SCH ×2 (10:10→21:25)
[2020-10-02] MEDS: NYSTATIN POWDER 100,000 UNITS/GM - 15 GM TOPICAL POWDER TP SCH ×2 (10:10→21:26)
[2020-10-02] MEDS: VALSARTAN 160 MG TABLET PO SCH (10:10)
[2020-10-02] MEDS: ALPRAZolam 0.25 MG TABLET PO PRN ×2 (12:32→20:39)
[2020-10-02] MEDS: POTASSIUM CHLORIDE 40 MEQ in AMINO ACIDS 4.25%/D5W 1,000 ML IV SCH (15:53)
[2020-10-02] MEDS: MELATONIN 5 MG TABLETS PO PRN (20:39)
[2020-10-02] MEDS: MIRTAZAPINE 15 MG TABLET (FP) PO SCH (21:25)
[2020-10-03] MEDS: METOCLOPRAMIDE HCL INJECTION 10 MG/2 ML VIAL IVPUSH SCH ×3 (05:57→21:52)
[2020-10-03] MEDS ORDERED: PT OWN MED DRAWER 7, Y5N ONE (09:59)
[2020-10-03] MEDS: amLODIPine BESYLATE 10 MG TABLET (FP) PO SCH (10:13)
[2020-10-03] MEDS: ATORVASTATIN CA 20 MG TABLET (FP) PO SCH (10:13)
[2020-10-03] MEDS: MULTIVIT-MINERALS ORAL LIQUID PO SCH (10:13)
[2020-10-03] MEDS: LACTOBACILLUS ACIDOPHILUS 1 TABLET PO SCH (10:13)
[2020-10-03] MEDS: PANTOPRAZOLE 40 MG TABLET PO SCH (10:13)
[2020-10-03] MEDS: AMINO ACIDS/PROTEIN HYDROLYS 30 ML LIQUID.PKT PO SCH ×3 (10:13→16:48)
[2020-10-03] MEDS: POTASSIUM CHLORIDE TABS 10 MEQ TABLET.ER (FP) PO SCH (10:13)
[2020-10-03] MEDS: VALSARTAN 160 MG TABLET PO SCH (10:13)
[2020-10-03] MEDS: ATENOLOL 50 MG TABLET (FP) PO SCH (10:13)
[2020-10-03] MEDS: CHOLECALCIFEROL (VIT D3) 1,000 UNIT (25 MCG) TABLET PO SCH (10:14)
[2020-10-03] MEDS: HEPARIN NA (PORCINE) 5,000 UNITS/ML 1ML VIAL SQ SCH ×2 (10:16→21:45)
[2020-10-03] MEDS: NYSTATIN POWDER 100,000 UNITS/GM - 15 GM TOPICAL POWDER TP SCH ×2 (10:16→21:46)
[2020-10-03] MEDS: POTASSIUM CHLORIDE 40 MEQ in AMINO ACIDS 4.25%/D5W 1,000 ML IV SCH ×3 (13:49→16:49)
[2020-10-03] MEDS: ALPRAZolam 0.25 MG TABLET PO PRN ×2 (14:34→21:52)
[2020-10-03] MEDS ORDERED: SODIUM PHOSPHATE/NA BIPHOS 133 ML ENEMA RC ONE (18:00)
[2020-10-03] MEDS: MELATONIN 5 MG TABLETS PO PRN (21:46)
[2020-10-03] MEDS: MIRTAZAPINE 15 MG TABLET (FP) PO SCH (21:52)
[2020-10-04] MEDS: POTASSIUM CHLORIDE 40 MEQ in AMINO ACIDS 4.25%/D5W 1,000 ML IV SCH ×2 (00:57→05:45)
[2020-10-04] MEDS: ACETAMINOPHEN 325 MG TABLET (FP) PO PRN (03:21)
[2020-10-04] MEDS: METOCLOPRAMIDE HCL INJECTION 10 MG/2 ML VIAL IVPUSH SCH ×3 (06:03→21:56)
[2020-10-04 07:56] LABS: BASO % 0.6 % (0-2.0); EOS % 0.9 % (0-4.5); HEMATOCRIT 38.2 % (32.4-45.2); HEMOGLOBIN 13.7 GM/dL (10.7-15.3); LYMPH % 24.3 % (8-40); MCH 32.3 pg (25.7-33.7); MCHC 35.8 g/dl (32.0-36.0); MEAN CELL VOLUME 90.1 fl (80-96); MEAN PLT VOLUME 8.4 fl (7.5-11.1); MONO % 12.4 % (3.8-10.2); NEUT % 61.8 % (42.8-82.8); PLATELET COUNT 388 K/MM3 (134-434); RBC 4.24 M/mm3 (3.60-5.2); RDW 14.1 % (11.6-15.6)
[2020-10-04 08:06] LABS: CALCIUM 9.7 mg/dL (8.5-10.1)
[2020-10-04 08:07] LABS: ALBUMIN 3.3 g/dl (3.4-5.0); MAGNESIUM 1.5 mg/dL (1.8-2.4)
[2020-10-04 08:10] LABS: CREATININE 0.8 mg/dL (0.55-1.3)
[2020-10-04 08:12] LABS: TOT PROT 6.2 g/dl (6.4-8.2)
[2020-10-04] MEDS: AMINO ACIDS/PROTEIN HYDROLYS 30 ML LIQUID.PKT PO SCH ×3 (08:42→17:30)
[2020-10-04] MEDS: ATENOLOL 50 MG TABLET (FP) PO SCH (10:55)
[2020-10-04] MEDS: HEPARIN NA (PORCINE) 5,000 UNITS/ML 1ML VIAL SQ SCH ×2 (10:55→21:55)
[2020-10-04] MEDS: CHOLECALCIFEROL (VIT D3) 1,000 UNIT (25 MCG) TABLET PO SCH (10:55)
[2020-10-04] MEDS: ATORVASTATIN CA 20 MG TABLET (FP) PO SCH (10:56)
[2020-10-04] MEDS: PANTOPRAZOLE 40 MG TABLET PO SCH (10:56)
[2020-10-04] MEDS: POTASSIUM CHLORIDE TABS 10 MEQ TABLET.ER (FP) PO SCH (10:57)
[2020-10-04] MEDS: LACTOBACILLUS ACIDOPHILUS 1 TABLET PO SCH (10:58)
[2020-10-04] MEDS ORDERED: PT OWN MED DRAWER 7, Y5N ONE (11:20)
[2020-10-04] MEDS: MULTIVIT-MINERALS ORAL LIQUID PO SCH (11:26)
[2020-10-04] MEDS: NYSTATIN POWDER 100,000 UNITS/GM - 15 GM TOPICAL POWDER TP SCH ×2 (11:28→21:56)
[2020-10-04] MEDS: SODIUM CHLORIDE 1,000 ML IV SCH (12:43)
[2020-10-04] MEDS ORDERED: DOCUSATE SODIUM 100 MG CAPSULE (FP) PO PRN (13:14)
[2020-10-04] MEDS ORDERED: ACETAMINOPHEN 325 MG TABLET (FP) PO PRN (13:29)
[2020-10-04] MEDS: oxyCODONE HCL 5 MG TABLET PO PRN (13:52)
[2020-10-04 17:00] LABS: CALCIUM 9.2 mg/dL (8.5-10.1)
[2020-10-04 17:01] LABS: BLOOD UREA NITROGEN 29.1 mg/dL (7-18)
[2020-10-04 17:04] LABS: CREATININE 0.7 mg/dL (0.55-1.3); PHOSPHOROUS 3.4 mg/dL (2.5-4.9)
[2020-10-04] MEDS: MIRTAZAPINE 15 MG TABLET (FP) PO SCH (21:56)
[2020-10-04] MEDS: ALPRAZolam 0.25 MG TABLET PO PRN (22:03)
[2020-10-05] MEDS: SODIUM CHLORIDE 1,000 ML IV SCH ×2 (01:27→14:26)
[2020-10-05] MEDS: CHOLECALCIFEROL (VIT D3) 1,000 UNIT (25 MCG) TABLET PO SCH (11:15)
[2020-10-05] MEDS: AMINO ACIDS/PROTEIN HYDROLYS 30 ML LIQUID.PKT PO SCH ×3 (11:15→18:59)
[2020-10-05] MEDS: METOCLOPRAMIDE HCL INJECTION 10 MG/2 ML VIAL IVPUSH SCH (11:15)
[2020-10-05] MEDS: PANTOPRAZOLE 40 MG TABLET PO SCH (11:15)
[2020-10-05] MEDS: LACTOBACILLUS ACIDOPHILUS 1 TABLET PO SCH (11:15)
[2020-10-05] MEDS: ATENOLOL 50 MG TABLET (FP) PO SCH (11:16)
[2020-10-05] MEDS: HEPARIN NA (PORCINE) 5,000 UNITS/ML 1ML VIAL SQ SCH ×2 (11:16→21:28)
[2020-10-05] MEDS: MULTIVIT-MINERALS ORAL LIQUID PO SCH (11:16)
[2020-10-05] MEDS: NYSTATIN POWDER 100,000 UNITS/GM - 15 GM TOPICAL POWDER TP SCH ×2 (11:17→21:34)
[2020-10-05] MEDS: oxyCODONE HCL 5 MG TABLET PO PRN (11:33)
[2020-10-05] MEDS: ATORVASTATIN CA 20 MG TABLET (FP) PO SCH (11:33)
[2020-10-05] MEDS ORDERED: MAGNESIUM 1GM/D5W 100ML - 100 ML IVPB IVPB ONE (13:30)
[2020-10-05] MEDS ORDERED: PHYTONADIONE 10 MG/1 ML AMP IVPB ONE (16:36)
[2020-10-05 17:54] LABS: CALCIUM 9.2 mg/dL (8.5-10.1)
[2020-10-05 17:55] LABS: BLOOD UREA NITROGEN 20.3 mg/dL (7-18)
[2020-10-05 17:58] LABS: CREATININE 0.7 mg/dL (0.55-1.3)
[2020-10-05] MEDS ORDERED: PT OWN MED DRAWER 7, Y5N ONE (21:17)
[2020-10-05] MEDS: ALPRAZolam 0.25 MG TABLET PO PRN (21:28)
[2020-10-05] MEDS: DOCUSATE SODIUM 100 MG CAPSULE (FP) PO SCH (21:29)
[2020-10-05] MEDS: SENNOSIDES 8.6MG TABLET (FP) PO SCH (21:29)
[2020-10-05] MEDS: MIRTAZAPINE 15 MG TABLET (FP) PO SCH (21:29)
[2020-10-05] MEDS: POLYETHYLENE GLYCOL 3350 119 GM BTL PO SCH (21:29)
[2020-10-06] MEDS: AMINO ACIDS/PROTEIN HYDROLYS 30 ML LIQUID.PKT PO SCH ×6 (08:00→17:47)
[2020-10-06 08:39] LABS: HEMATOCRIT 30.3 % (32.4-45.2); HEMOGLOBIN 10.8 GM/dL (10.7-15.3); MCH 32.5 pg (25.7-33.7); MCHC 35.8 g/dl (32.0-36.0); MEAN CELL VOLUME 90.9 fl (80-96); PLATELET COUNT 311 K/MM3 (134-434); RBC 3.33 M/mm3 (3.60-5.2); WHITE BLOOD COUNT 4.8 K/mm3 (4.0-10.0)
[2020-10-06 08:45] LABS: INR 1.21 (0.83-1.09); PROTHROMBIN TIME (PATIENT) 14.6 SEC (9.7-13.0)
[2020-10-06 09:18] LABS: CALCIUM 8.5 mg/dL (8.5-10.1)
[2020-10-06 09:19] LABS: BLOOD UREA NITROGEN 15.7 mg/dL (7-18); MAGNESIUM 1.9 mg/dL (1.8-2.4)
[2020-10-06 09:22] LABS: CREATININE 0.6 mg/dL (0.55-1.3); PHOSPHOROUS 5.4 mg/dL (2.5-4.9)
[2020-10-06 09:24] LABS: BILIRUBIN,TOTAL 0.8 mg/dL (0.2-1); TOT PROT 4.9 g/dl (6.4-8.2)
[2020-10-06 09:29] LABS: ALBUMIN 2.5 g/dl (3.4-5.0)
[2020-10-06] MEDS: LACTOBACILLUS ACIDOPHILUS 1 TABLET PO SCH (09:41)
[2020-10-06] MEDS: MULTIVIT-MINERALS ORAL LIQUID PO SCH (09:42)
[2020-10-06] MEDS: ATORVASTATIN CA 20 MG TABLET (FP) PO SCH (09:42)
[2020-10-06] MEDS: DOCUSATE SODIUM 100 MG CAPSULE (FP) PO SCH ×2 (09:42→21:25)
[2020-10-06] MEDS: CHOLECALCIFEROL (VIT D3) 1,000 UNIT (25 MCG) TABLET PO SCH (09:43)
[2020-10-06] MEDS: POLYETHYLENE GLYCOL 3350 119 GM BTL PO SCH ×2 (09:43→21:26)
[2020-10-06] MEDS: PANTOPRAZOLE 40 MG TABLET PO SCH (09:43)
[2020-10-06] MEDS: Methylnaltrexone Bromide 12 MG/0.6 ML KIT SQ SCH (09:44)
[2020-10-06] MEDS: LIDOCAINE 5% TOPICAL PATCH TP SCH (09:45)
[2020-10-06] MEDS: NYSTATIN POWDER 100,000 UNITS/GM - 15 GM TOPICAL POWDER TP SCH ×2 (09:46→21:26)
[2020-10-06] MEDS ORDERED: PT OWN MED DRAWER 7, Y5N ONE ×2 (14:31→17:19)
[2020-10-06] MEDS: LIDOCAINE PATCH REMOVAL MC SCH (21:26)
[2020-10-06] MEDS: HEPARIN NA (PORCINE) 5,000 UNITS/ML 1ML VIAL SQ SCH (21:26)
[2020-10-06] MEDS: MELATONIN 5 MG TABLETS PO PRN (21:27)
[2020-10-06] MEDS: ALPRAZolam 0.25 MG TABLET PO PRN (21:27)
[2020-10-06] MEDS: MIRTAZAPINE 15 MG TABLET (FP) PO SCH (21:27)
[2020-10-06] MEDS: SENNOSIDES 8.6MG TABLET (FP) PO SCH (21:27)
[2020-10-07 08:57] LABS: CALCIUM 8.7 mg/dL (8.5-10.1)
[2020-10-07 08:58] LABS: BLOOD UREA NITROGEN 13.3 mg/dL (7-18); MAGNESIUM 1.9 mg/dL (1.8-2.4)
[2020-10-07 09:01] LABS: CREATININE 0.6 mg/dL (0.55-1.3); PHOSPHOROUS 4.1 mg/dL (2.5-4.9)
[2020-10-07] MEDS: AMINO ACIDS/PROTEIN HYDROLYS 30 ML LIQUID.PKT PO SCH ×3 (10:00→17:23)
[2020-10-07] MEDS ORDERED: PT OWN MED DRAWER 7, Y5N ONE ×2 (11:15→14:42)
[2020-10-07] MEDS: PANTOPRAZOLE 40 MG TABLET PO SCH (11:19)
[2020-10-07] MEDS: LACTOBACILLUS ACIDOPHILUS 1 TABLET PO SCH (11:19)
[2020-10-07] MEDS: CHOLECALCIFEROL (VIT D3) 1,000 UNIT (25 MCG) TABLET PO SCH (11:19)
[2020-10-07] MEDS: ATORVASTATIN CA 20 MG TABLET (FP) PO SCH (11:20)
[2020-10-07] MEDS: LIDOCAINE 5% TOPICAL PATCH TP SCH (11:20)
[2020-10-07] MEDS: DOCUSATE SODIUM 100 MG CAPSULE (FP) PO SCH ×2 (11:20→21:21)
[2020-10-07] MEDS: HEPARIN NA (PORCINE) 5,000 UNITS/ML 1ML VIAL SQ SCH ×2 (11:21→21:21)
[2020-10-07] MEDS: MULTIVIT-MINERALS ORAL LIQUID PO SCH (11:21)
[2020-10-07] MEDS: NYSTATIN POWDER 100,000 UNITS/GM - 15 GM TOPICAL POWDER TP SCH ×2 (11:26→21:21)
[2020-10-07] MEDS: POLYETHYLENE GLYCOL 3350 119 GM BTL PO SCH ×2 (11:26→21:21)
[2020-10-07] MEDS: Methylnaltrexone Bromide 12 MG/0.6 ML KIT SQ SCH (14:46)
[2020-10-07] MEDS: MIRTAZAPINE 15 MG TABLET (FP) PO SCH (21:21)
[2020-10-07] MEDS: MELATONIN 5 MG TABLETS PO PRN (21:21)
[2020-10-07] MEDS: ALPRAZolam 0.25 MG TABLET PO PRN (21:21)
[2020-10-07] MEDS: LIDOCAINE PATCH REMOVAL MC SCH (21:21)
[2020-10-07] MEDS: SENNOSIDES 8.6MG TABLET (FP) PO SCH (21:21)
[2020-10-08] MEDS: AMINO ACIDS/PROTEIN HYDROLYS 30 ML LIQUID.PKT PO SCH ×3 (09:13→17:40)
[2020-10-08] MEDS ORDERED: PT OWN MED DRAWER 7, Y5N ONE (09:23)
[2020-10-08] MEDS: LACTOBACILLUS ACIDOPHILUS 1 TABLET PO SCH (09:27)
[2020-10-08] MEDS: CHOLECALCIFEROL (VIT D3) 1,000 UNIT (25 MCG) TABLET PO SCH (09:27)
[2020-10-08] MEDS: PANTOPRAZOLE 40 MG TABLET PO SCH (09:27)
[2020-10-08] MEDS: DOCUSATE SODIUM 100 MG CAPSULE (FP) PO SCH ×2 (09:27→22:22)
[2020-10-08] MEDS: MULTIVIT-MINERALS ORAL LIQUID PO SCH ×2 (09:27→09:36)
[2020-10-08] MEDS: HEPARIN NA (PORCINE) 5,000 UNITS/ML 1ML VIAL SQ SCH ×2 (09:28→21:03)
[2020-10-08] MEDS: LIDOCAINE 5% TOPICAL PATCH TP SCH (09:29)
[2020-10-08] MEDS: NYSTATIN POWDER 100,000 UNITS/GM - 15 GM TOPICAL POWDER TP SCH ×2 (09:30→22:25)
[2020-10-08] MEDS: ATORVASTATIN CA 20 MG TABLET (FP) PO SCH (09:41)
[2020-10-08] MEDS: POLYETHYLENE GLYCOL 3350 119 GM BTL PO SCH ×2 (09:41→22:22)
[2020-10-08] MEDS: Methylnaltrexone Bromide 12 MG/0.6 ML KIT SQ SCH (10:11)
[2020-10-08] MEDS: ACETAMINOPHEN 325 MG TABLET (FP) PO PRN ×2 (16:27→22:24)
[2020-10-08] MEDS ORDERED: Methylnaltrexone Bromide 12 MG/0.6 ML KIT SQ PRN (17:07)
[2020-10-08] MEDS: ALPRAZolam 0.25 MG TABLET PO PRN (21:03)
[2020-10-08] MEDS: MELATONIN 5 MG TABLETS PO PRN (21:03)
[2020-10-08] MEDS: MIRTAZAPINE 15 MG TABLET (FP) PO SCH (21:03)
[2020-10-08] MEDS ORDERED: SODIUM CHLORIDE 0.9% 500 ML INFUS.BAG IV ONE (21:50)
[2020-10-08] MEDS: LIDOCAINE PATCH REMOVAL MC SCH (22:22)
[2020-10-08] MEDS: SENNOSIDES 8.6MG TABLET (FP) PO SCH (22:25)
[2020-10-08 23:29] LABS: HEMATOCRIT 34.7 % (32.4-45.2); HEMOGLOBIN 11.8 GM/dL (10.7-15.3); MCH 31.7 pg (25.7-33.7); MEAN CELL VOLUME 93.2 fl (80-96); MEAN PLT VOLUME 8.3 fl (7.5-11.1); PLATELET COUNT 247 K/MM3 (134-434); RBC 3.72 M/mm3 (3.60-5.2); RDW 13.8 % (11.6-15.6); WHITE BLOOD COUNT 6.9 K/mm3 (4.0-10.0)
[2020-10-09 08:11] LABS: BASO % 0.6 % (0-2.0); EOS % 2.1 % (0-4.5); HEMATOCRIT 28.9 % (32.4-45.2); HEMOGLOBIN 10.3 GM/dL (10.7-15.3); LYMPH % 44.8 % (8-40); MCH 32.8 pg (25.7-33.7); MCHC 35.6 g/dl (32.0-36.0); MEAN PLT VOLUME 8.3 fl (7.5-11.1); MONO % 9.4 % (3.8-10.2); NEUT % 43.1 % (42.8-82.8); PLATELET COUNT 240 K/MM3 (134-434); RBC 3.15 M/mm3 (3.60-5.2); RDW 14.1 % (11.6-15.6); WHITE BLOOD COUNT 4.6 K/mm3 (4.0-10.0)
[2020-10-09] MEDS: AMINO ACIDS/PROTEIN HYDROLYS 30 ML LIQUID.PKT PO SCH ×3 (08:20→17:37)
[2020-10-09 08:39] LABS: CALCIUM 8.7 mg/dL (8.5-10.1)
[2020-10-09 08:40] LABS: BLOOD UREA NITROGEN 17.1 mg/dL (7-18)
[2020-10-09 08:43] LABS: CREATININE 0.6 mg/dL (0.55-1.3)
[2020-10-09] MEDS ORDERED: PT OWN MED DRAWER 7, Y5N ONE (10:03)
[2020-10-09] MEDS: MULTIVIT-MINERALS ORAL LIQUID PO SCH (10:07)
[2020-10-09] MEDS: LACTOBACILLUS ACIDOPHILUS 1 TABLET PO SCH (10:07)
[2020-10-09] MEDS: DOCUSATE SODIUM 100 MG CAPSULE (FP) PO SCH ×2 (10:08→21:42)
[2020-10-09] MEDS: ATORVASTATIN CA 20 MG TABLET (FP) PO SCH (10:08)
[2020-10-09] MEDS: HEPARIN NA (PORCINE) 5,000 UNITS/ML 1ML VIAL SQ SCH ×2 (10:09→21:42)
[2020-10-09] MEDS: POLYETHYLENE GLYCOL 3350 119 GM BTL PO SCH ×2 (10:09→21:42)
[2020-10-09] MEDS: PANTOPRAZOLE 40 MG TABLET PO SCH (10:09)
[2020-10-09] MEDS: CHOLECALCIFEROL (VIT D3) 1,000 UNIT (25 MCG) TABLET PO SCH (10:09)
[2020-10-09] MEDS: NYSTATIN POWDER 100,000 UNITS/GM - 15 GM TOPICAL POWDER TP SCH ×3 (10:11→21:42)
[2020-10-09] MEDS: LIDOCAINE 5% TOPICAL PATCH TP SCH (10:11)
[2020-10-09] MEDS: MIRTAZAPINE 15 MG TABLET (FP) PO SCH (21:42)
[2020-10-09] MEDS: ALPRAZolam 0.25 MG TABLET PO PRN (21:42)
[2020-10-09] MEDS: MELATONIN 5 MG TABLETS PO PRN (21:42)
[2020-10-09] MEDS: LIDOCAINE PATCH REMOVAL MC SCH (21:42)
[2020-10-09] MEDS: ACETAMINOPHEN 325 MG TABLET (FP) PO PRN (21:42)
[2020-10-09] MEDS: SENNOSIDES 8.6MG TABLET (FP) PO SCH (21:49)
[2020-10-10] MEDS: AMINO ACIDS/PROTEIN HYDROLYS 30 ML LIQUID.PKT PO SCH ×3 (10:03→18:06)
[2020-10-10] MEDS: LACTOBACILLUS ACIDOPHILUS 1 TABLET PO SCH (10:04)
[2020-10-10] MEDS: PANTOPRAZOLE 40 MG TABLET PO SCH (10:04)
[2020-10-10] MEDS: ATORVASTATIN CA 20 MG TABLET (FP) PO SCH (10:04)
[2020-10-10] MEDS: HEPARIN NA (PORCINE) 5,000 UNITS/ML 1ML VIAL SQ SCH (10:04)
[2020-10-10] MEDS: CHOLECALCIFEROL (VIT D3) 1,000 UNIT (25 MCG) TABLET PO SCH (10:04)
[2020-10-10] MEDS: POLYETHYLENE GLYCOL 3350 119 GM BTL PO SCH (10:05)
[2020-10-10] MEDS: DOCUSATE SODIUM 100 MG CAPSULE (FP) PO SCH (10:05)
[2020-10-10] MEDS: MULTIVIT-MINERALS ORAL LIQUID PO SCH (10:05)
[2020-10-10] MEDS: LIDOCAINE 5% TOPICAL PATCH TP SCH (10:05)
[2020-10-10] MEDS: NYSTATIN POWDER 100,000 UNITS/GM - 15 GM TOPICAL POWDER TP SCH (12:00)
[2020-10-10] MEDS: ACETAMINOPHEN 325 MG TABLET (FP) PO PRN (15:59)
[2020-10-10 16:25] VITALS: BP 121/76; PULSE 97; TEMP 98
[2020-10-10] MEDS ORDERED: PT OWN MED DRAWER 7, Y5N ONE (16:41)
== END 2020-10-10 20:00 | DRG 881 ==
LOC: JER 23:44 → JERBED 09-24 02:56 → J5S 09-24 11:12 → J8W 09-26 02:33
PROVIDERS: ADMIT Internal Medicine; ATTEND Internal Medicine
DX: F32.9 Major depressive disorder, single episode, unspecified (principal); E87.1 Hypo-osmolality and hyponatremia; R13.10 Dysphagia, unspecified; E86.0 Dehydration; R11.2 Nausea with vomiting, unspecified; E87.8 Other disorders of electrolyte and fluid balance, not elsewhere classified; E78.5 Hyperlipidemia, unspecified; I10 Essential (primary) hypertension; E87.6 Hypokalemia; K59.09 Other constipation; K44.9 Diaphragmatic hernia without obstruction or gangrene; K21.9 Gastro-esophageal reflux disease without esophagitis; J44.9 Chronic obstructive pulmonary disease, unspecified; F41.8 Other specified anxiety disorders; F41.0 Panic disorder [episodic paroxysmal anxiety]; M51.26 Other intervertebral disc displacement, lumbar region; I25.10 Atherosclerotic heart disease of native coronary artery without angina pectoris; R19.7 Diarrhea, unspecified; E87.5 Hyperkalemia; R55 Syncope and collapse; R53.1 Weakness; Z87.11 Personal history of peptic ulcer disease; Z90.2 Acquired absence of lung [part of]; Z85.118 Personal history of other malignant neoplasm of bronchus and lung
CPT/HCPCS: 36415; 74018-TC-FY; 74220-TC-FY; 80048; 80053; 81003; 82550; 82962; 83735; 83930; 83935; 84100; 84300; 84439; 84443; 84481; 84484; 85025; 85027; 85610; 85730; 86850; 86900; 86901; 87086; 87186; 93005; 93010; 97116-GP; 97161-GP; 99285-25; C9803; J1644; U0003; U0005

== ENCOUNTER 2020-10-31 16:04 | Emergency (ER) | payer OTHER ==
[2020-10-31 16:15] VITALS: TEMP 97.9; BMI 25.6
[2020-10-31] MEDS ORDERED: SODIUM CHLORIDE 0.9% 500 ML INFUS.BAG IV ONE (17:26)
[2020-10-31 18:11] LABS: BASO % 0.7 % (0-2.0); EOS % 0.1 % (0-4.5); HEMATOCRIT 35.4 % (32.4-45.2); LYMPH % 22.5 % (8-40); MCH 32.2 pg (25.7-33.7); MCHC 33.9 g/dl (32.0-36.0); MEAN CELL VOLUME 94.9 fl (80-96); MEAN PLT VOLUME 7.7 fl (7.5-11.1); MONO % 8.2 % (3.8-10.2); NEUT % 68.5 % (42.8-82.8); PLATELET COUNT 380 K/MM3 (134-434); RBC 3.73 M/mm3 (3.60-5.2); RDW 14.9 % (11.6-15.6); WHITE BLOOD COUNT 5.3 K/mm3 (4.0-10.0)
[2020-10-31 18:17] LABS: INR 1.12 (0.83-1.09); PROTHROMBIN TIME (PATIENT) 13.7 SEC (9.7-13.0)
[2020-10-31 18:20] LABS: ACTIVATED PTT 27.9 SECONDS (25.2-36.5)
[2020-10-31 18:26] LABS: CHLORIDE 102 mmol/L (98-107); SODIUM 138 mmol/L (136-145)
[2020-10-31 18:28] LABS: CALCIUM 9.3 mg/dL (8.5-10.1)
[2020-10-31 18:29] LABS: ALBUMIN 3.5 g/dl (3.4-5.0); ANION GAP 12 MMOL/L (8-16); BLOOD UREA NITROGEN 17.8 mg/dL (7-18); CO2 23 mmol/L (21-32); GLUCOSE,RANDOM 104 mg/dL (74-106)
[2020-10-31 18:32] LABS: CREATININE 0.5 mg/dL (0.55-1.3); PHOSPHOROUS 3.1 mg/dL (2.5-4.9); SGOT/AST 38 U/L (15-37); SGPT/ALT 21 U/L (13-61)
[2020-10-31 18:33] LABS: BILIRUBIN,TOTAL 0.7 mg/dL (0.2-1); TOT PROT 6.5 g/dl (6.4-8.2)
[2020-10-31 18:34] LABS: ALK PHOS 77 U/L (45-117)
[2020-10-31 19:39] LABS: EPI CELLS 21 /uL (0-25.1); HYALINE CASTS 4 /uL (0-3.1); URINE APPEARANCE CLEAR; URINE BACTERIA 140 /uL (0-1359); URINE BILIRUBIN NEGATIVE (NEGATIVE); URINE COLOR YELLOW; URINE GLUCOSE (UA) NEGATIVE (NEGATIVE); URINE KETONE 4+ (NEGATIVE); URINE LEUK ESTERASE TRACE (NEGATIVE); URINE NITRITE NEGATIVE (NEGATIVE); URINE PROTEIN 1+ (NEGATIVE); URINE RBC 10 /uL (0-23.9); URINE WBC 48 /uL (0-25.8)
[2020-10-31] MEDS ORDERED: CEPHALEXIN MONOHYDRATE 500 MG CAPSULE (UD) PO ONE (23:17)
[2020-10-31] MEDS ORDERED: CEPHALEXIN MONOHYDRATE 500 MG CAPSULE (UD) ONE (23:22)
[2020-10-31 23:32] VITALS: BP 147/77; PULSE 79
== END 2020-10-31 23:58 | disposition home or self-care (01) ==
LOC: JER 16:04
DX: M51.26 Other intervertebral disc displacement, lumbar region (principal); N30.00 Acute cystitis without hematuria
CPT/HCPCS: 36415; 71045-TC-FY; 74177-TC; 80053; 81003; 83735; 84100; 84443; 84484; 85025; 85610; 85730; 87086; 93005; 93010; 99285-25; Q9967

== ENCOUNTER 2020-11-10 12:32 | Observation (INO) | payer OTHER ==
[2020-11-10 14:28] LABS: BASO % 0.4 % (0-2.0); EOS % 0.4 % (0-4.5); HEMATOCRIT 40.2 % (32.4-45.2); HEMOGLOBIN 13.8 GM/dL (10.7-15.3); LYMPH % 32.2 % (8-40); MCH 32.1 pg (25.7-33.7); MCHC 34.3 g/dl (32.0-36.0); MEAN CELL VOLUME 93.4 fl (80-96); MEAN PLT VOLUME 7.3 fl (7.5-11.1); MONO % 13.9 % (3.8-10.2); NEUT % 53.1 % (42.8-82.8); PLATELET COUNT 299 10^3/uL (134-434); RDW 15.5 % (11.6-15.6); WHITE BLOOD COUNT 4.3 K/mm3 (4.0-10.0)
[2020-11-10 14:48] LABS: CHLORIDE 97 mmol/L (98-107); SODIUM 136 mmol/L (136-145)
[2020-11-10 14:50] LABS: CALCIUM 9.4 mg/dL (8.5-10.1)
[2020-11-10 14:51] LABS: ALBUMIN 3.6 g/dl (3.4-5.0); ANION GAP 7 MMOL/L (8-16); BLOOD UREA NITROGEN 12.6 mg/dL (7-18); CO2 33 mmol/L (21-32); GLUCOSE,RANDOM 121 mg/dL (74-106); LIPASE 141 U/L (73-393); MAGNESIUM 2.2 mg/dL (1.8-2.4)
[2020-11-10 14:54] LABS: CREATININE 0.6 mg/dL (0.55-1.3); SGOT/AST 19 U/L (15-37); SGPT/ALT 25 U/L (13-61)
[2020-11-10 14:55] LABS: BILIRUBIN,TOTAL 0.7 mg/dL (0.2-1); TOT PROT 6.6 g/dl (6.4-8.2)
[2020-11-10 14:57] LABS: ALK PHOS 80 U/L (45-117)
[2020-11-10] MEDS ORDERED: MAG HYDROX/AL HYDROX/SIMETH -MYLANTA- ORAL SUSPENSION PO ONE (15:12)
[2020-11-10] MEDS ORDERED: FAMOTIDINE 20 MG/50 ML IVPB 20 MG in PREMIX 50 IVPB ONE (15:12)
[2020-11-10] MEDS ORDERED: MAG HYDROX/AL HYDROX/SIMETH 30 ML UNIT-DOSE CUP ONE (15:23)
[2020-11-10] MEDS ORDERED: FAMOTIDINE 20 MG/50 ML IVPB 20 MG/50 ML MG IVPB ONE (15:23)
[2020-11-10] MEDS ORDERED: ACETAMINOPHEN 1000 MG/100 ML VIAL (NON FORMULARY) IVPB ONE (17:13)
[2020-11-10] MEDS ORDERED: ACETAMINOPHEN INJECTION 100 ML IVPB ONE (18:01)
[2020-11-11 01:58] VITALS: BMI 24.5
[2020-11-11] MEDS ORDERED: POLYETHYLENE GLYCOL 3350 119 GM BTL PO PRN (10:56)
[2020-11-11] MEDS ORDERED: MELATONIN 5 MG TABLETS PO PRN (10:56)
[2020-11-11] MEDS ORDERED: ONDANSETRON 4 MG TABLET PO PRN (10:56)
[2020-11-11] MEDS ORDERED: ONDANSETRON *ODT* 4 MG TABLET SL PRN (11:46)
[2020-11-11] MEDS: ACETAMINOPHEN 325 MG TABLET (FP) PO PRN (11:49)
[2020-11-11] MEDS: AMINO ACIDS/PROTEIN HYDROLYS 30 ML LIQUID.PKT PO SCH ×2 (11:49→17:11)
[2020-11-11] MEDS: ALPRAZolam 0.25 MG TABLET PO PRN (13:24)
[2020-11-11] MEDS: HEPARIN NA (PORCINE) 5,000 UNITS/ML 1ML VIAL SQ SCH (21:47)
[2020-11-11] MEDS: POLYETHYLENE GLYCOL 3350 119 GM BTL PO SCH ×2 (21:49→22:08)
[2020-11-11] MEDS: DOCUSATE SODIUM 100 MG CAPSULE (FP) PO SCH (21:49)
[2020-11-11] MEDS ORDERED: MIRTAZAPINE 15 MG TABLET (FP) PO SCH (22:00)
[2020-11-11] MEDS ORDERED: SENNOSIDES 8.6MG TABLET (FP) PO SCH (22:00)
[2020-11-11] MEDS ORDERED: PATIENT'S OWN MEDICATION (NON-FORMULARY) (Lidocaine Patch Removal 1 EACH Each) MC SCH (22:00)
[2020-11-12] MEDS: POLYETHYLENE GLYCOL 3350 119 GM BTL PO SCH ×2 (05:42→13:32)
[2020-11-12] MEDS ORDERED: PT OWN MED DRAWER 7, Y5N ONE (09:12)
[2020-11-12] MEDS: AMINO ACIDS/PROTEIN HYDROLYS 30 ML LIQUID.PKT PO SCH ×2 (09:20→12:10)
[2020-11-12] MEDS: ACETAMINOPHEN 325 MG TABLET (FP) PO PRN (09:21)
[2020-11-12] MEDS: ALPRAZolam 0.25 MG TABLET PO PRN (09:22)
[2020-11-12] MEDS: DOCUSATE SODIUM 100 MG CAPSULE (FP) PO SCH (09:23)
[2020-11-12] MEDS: HEPARIN NA (PORCINE) 5,000 UNITS/ML 1ML VIAL SQ SCH (09:24)
[2020-11-12] MEDS ORDERED: VALSARTAN 80 MG TABLET PO SCH (10:00)
[2020-11-12] MEDS ORDERED: LACTOBACILLUS ACIDOPHILUS 1 TABLET PO SCH (10:00)
[2020-11-12] MEDS ORDERED: PRAVASTATIN SODIUM 80 MG PO SCH (10:00)
[2020-11-12] MEDS ORDERED: POTASSIUM CHLORIDE TABS 10 MEQ TABLET.ER (FP) PO SCH (10:00)
[2020-11-12] MEDS ORDERED: ATENOLOL 50 MG TABLET (FP) PO SCH (10:00)
[2020-11-12] MEDS ORDERED: LIDOCAINE 5% TOPICAL PATCH TP SCH (10:00)
[2020-11-12] MEDS ORDERED: PANTOPRAZOLE 40 MG TABLET PO SCH (10:00)
[2020-11-12] MEDS ORDERED: CHOLECALCIFEROL (VIT D3) 1,000 UNIT (25 MCG) TABLET PO SCH (10:00)
[2020-11-12 14:04] VITALS: BP 144/78; PULSE 72; TEMP 98.4
[2020-11-12] MEDS ORDERED: ATORVASTATIN CA 20 MG TABLET (FP) PO SCH (22:00)
[2020-11-12] MEDS ORDERED: LIDOCAINE PATCH REMOVAL MC SCH (22:00)
== END 2020-11-12 16:30 | disposition home health service (06) ==
LOC: JER 12:32 → JERBED 17:26 → J4S 20:57
PROVIDERS: ADMIT Internal Medicine; ATTEND Internal Medicine
PROC: 3E033GC Introduction of Other Therapeutic Substance into Peripheral Vein, Percutaneous Approach (ICD-10-PCS; principal; 2020-11-10)
PROC: 3E013GC Introduction of Other Therapeutic Substance into Subcutaneous Tissue, Percutaneous Approach (ICD-10-PCS; 2020-11-10)
DX: R11.2 Nausea with vomiting, unspecified (principal); R10.9 Unspecified abdominal pain; I11.0 Hypertensive heart disease with heart failure; E78.5 Hyperlipidemia, unspecified; I50.9 Heart failure, unspecified; Z85.118 Personal history of other malignant neoplasm of bronchus and lung; Z87.891 Personal history of nicotine dependence; K59.00 Constipation, unspecified; F32.9 Major depressive disorder, single episode, unspecified; K22.70 Barrett's esophagus without dysplasia; K57.90 Diverticulosis of intestine, part unspecified, without perforation or abscess without bleeding; Z90.2 Acquired absence of lung [part of]
CPT/HCPCS: 36415; 71045-TC-FY; 80053; 82550; 83605; 83690; 83735; 84484; 85025; 93005; 93010; 96365; 96372; 96375; 99285-25; C9803; G0378; J0131; J1644; Q0162; U0003; U0005

== ENCOUNTER 2021-01-11 03:13 | Inpatient (IN) | payer OTHER ==
[2021-01-11] MEDS ORDERED: METOCLOPRAMIDE HCL INJECTION 10 MG/2 ML VIAL IVPB ONE (04:03)
[2021-01-11] MEDS ORDERED: ACETAMINOPHEN 1000 MG/100 ML VIAL (NON FORMULARY) IVPB ONE (04:03)
[2021-01-11] MEDS ORDERED: SODIUM CHLORIDE 0.9% 500 ML INFUS.BAG IV ONE (04:04)
[2021-01-11] MEDS ORDERED: LACTATED RINGERS SOLUTION 1000 ML INFUS.BAG IV ONE (04:04)
[2021-01-11] MEDS ORDERED: METOCLOPRAMIDE HCL INJECTION 10 MG/2 ML VIAL ONE (04:41)
[2021-01-11] MEDS ORDERED: ACETAMINOPHEN INJECTION 100 ML IVPB ONE (04:41)
[2021-01-11 06:21] LABS: HEMATOCRIT 38.4 % (32.4-45.2); HEMOGLOBIN 13.1 GM/dL (10.7-15.3); MCH 31.6 pg (25.7-33.7); MCHC 34.1 g/dl (32.0-36.0); MEAN CELL VOLUME 92.8 fl (80-96); MEAN PLT VOLUME 8.2 fl (7.5-11.1); MONO % 6.1 % (3.8-10.2); NEUT % 89.9 % (42.8-82.8); PLATELET COUNT 438 10^3/uL (134-434); RBC 4.14 M/mm3 (3.60-5.2); WHITE BLOOD COUNT 18.2 K/mm3 (4.0-10.0)
[2021-01-11 06:28] LABS: INR 1.56 (0.83-1.09); PROTHROMBIN TIME (PATIENT) 18.9 SEC (9.7-13.0)
[2021-01-11 06:30] LABS: ACTIVATED PTT 25.5 SECONDS (25.2-36.5)
[2021-01-11 06:38] LABS: CHLORIDE 104 mmol/L (98-107); SODIUM 141 mmol/L (136-145)
[2021-01-11 06:38] LABS: EPI CELLS 5 /uL (0-25.1); HYALINE CASTS 7 /uL (0-3.1); PH,URINE 5.5 (5.0-8.0); URINE APPEARANCE CLOUDY; URINE BACTERIA >9,000 /uL (0-1359); URINE BILIRUBIN NEGATIVE (NEGATIVE); URINE COLOR YELLOW; URINE GLUCOSE (UA) NEGATIVE (NEGATIVE); URINE KETONE TRACE (NEGATIVE); URINE LEUK ESTERASE 2+ (NEGATIVE); URINE NITRITE NEGATIVE (NEGATIVE); URINE PROTEIN 1+ (NEGATIVE); URINE RBC 25 /uL (0-23.9); URINE UROBILINOGEN 0.2 mg/dL (0.2-1.0); URINE WBC 459 /uL (0-25.8)
[2021-01-11] MEDS ORDERED: NYSTATIN 500,000 UNITS/5 ML SUSPENSION PO ONE (06:38)
[2021-01-11 06:41] LABS: ALBUMIN 2.2 g/dl (3.4-5.0); ANION GAP 9 MMOL/L (8-16); BLOOD UREA NITROGEN 55.6 mg/dL (7-18); CALCIUM 8.5 mg/dL (8.5-10.1); CO2 28 mmol/L (21-32); GLUCOSE,RANDOM 143 mg/dL (74-106); LIPASE 115 U/L (73-393); MAGNESIUM 2.3 mg/dL (1.8-2.4)
[2021-01-11 06:47] LABS: ALK PHOS 107 U/L (45-117); BILIRUBIN,TOTAL 0.4 mg/dL (0.2-1); SGOT/AST 37 U/L (15-37); SGPT/ALT 53 U/L (13-61); TOT PROT 6.4 g/dl (6.4-8.2)
[2021-01-11] MEDS ORDERED: PIPERACILLIN/TAZOB 3.375 GM 3.375 GM in DEXTROSE 5%-WATER - 50 ML IVPB ONE (06:57)
[2021-01-11] MEDS ORDERED: PIPERACILLIN/TAZOB 3.375 GM 3.375 GM/50 ML BAG IVPB ONE (07:15)
[2021-01-11] MEDS ORDERED: POLYETHYLENE GLYCOL 3350 119 GM BTL PO PRN (15:43)
[2021-01-11] MEDS ORDERED: SENNOSIDES 8.6MG TABLET (FP) PO PRN (15:43)
[2021-01-11] MEDS: SODIUM CHLORIDE 1,000 ML IV SCH (16:30)
[2021-01-11] MEDS ORDERED: ACETAMINOPHEN 325 MG TABLET (FP) ONE (18:18)
[2021-01-11] MEDS: ACETAMINOPHEN 325 MG TABLET (FP) PO PRN (18:29)
[2021-01-11] MEDS ORDERED: ALPRAZolam 0.25 MG TABLET ONE (19:49)
[2021-01-11] MEDS: ALPRAZolam 0.25 MG TABLET PO PRN (19:58)
[2021-01-11] MEDS ORDERED: PT OWN MED DRAWER 7, Y5N ONE (22:57)
[2021-01-11] MEDS: NYSTATIN POWDER 100,000 UNITS/GM - 15 GM TOPICAL POWDER TP SCH (23:00)
[2021-01-11] MEDS: HEPARIN NA (PORCINE) 5,000 UNITS/ML 1ML VIAL SQ SCH (23:02)
[2021-01-11] MEDS: ATORVASTATIN CA 20 MG TABLET (FP) PO SCH (23:04)
[2021-01-11] MEDS: DOCUSATE SODIUM 100 MG CAPSULE (FP) PO SCH (23:04)
[2021-01-11] MEDS: LIDOCAINE PATCH REMOVAL MC SCH (23:11)
[2021-01-12] MEDS: ONDANSETRON 4 MG TABLET PO PRN ×3 (00:27→18:38)
[2021-01-12] MEDS: ACETAMINOPHEN 325 MG TABLET (FP) PO PRN ×2 (00:57→16:51)
[2021-01-12] MEDS: SODIUM CHLORIDE 1,000 ML IV SCH ×2 (01:00→15:05)
[2021-01-12] MEDS ORDERED: POLYETHYLENE GLYCOL (HEALTHYLAX) 3350 17 GM PACKET PO PRN (04:46)
[2021-01-12] MEDS: ALPRAZolam 0.25 MG TABLET PO PRN ×2 (04:56→13:33)
[2021-01-12] MEDS ORDERED: cefTRIAXone SODIUM 1 GM VIAL ONE (09:21)
[2021-01-12] MEDS ORDERED: DEXTROSE 5%-WATER - 50 ML IVPB ONE ×3 (09:21→16:43)
[2021-01-12] MEDS: LACTOBACILLUS ACIDOPHILUS 1 TABLET PO SCH (09:46)
[2021-01-12] MEDS: CHOLECALCIFEROL (VIT D3) 1,000 UNIT (25 MCG) TABLET PO SCH (09:46)
[2021-01-12] MEDS: DOCUSATE SODIUM 100 MG CAPSULE (FP) PO SCH ×2 (09:47→21:03)
[2021-01-12] MEDS: ATENOLOL 50 MG TABLET (FP) PO SCH (09:48)
[2021-01-12] MEDS: POTASSIUM CHLORIDE TABS 10 MEQ TABLET.ER (FP) PO SCH (09:48)
[2021-01-12] MEDS: SERTRALINE HCL 50 MG TABLET (FP) PO SCH (09:48)
[2021-01-12] MEDS: VALSARTAN 80 MG TABLET PO SCH (09:49)
[2021-01-12] MEDS: LIDOCAINE 5% TOPICAL PATCH TP SCH (09:50)
[2021-01-12] MEDS: NYSTATIN POWDER 100,000 UNITS/GM - 15 GM TOPICAL POWDER TP SCH ×2 (09:50→21:10)
[2021-01-12] MEDS: HEPARIN NA (PORCINE) 5,000 UNITS/ML 1ML VIAL SQ SCH ×2 (09:50→21:01)
[2021-01-12] MEDS ORDERED: CEFTRIAXONE 1 GM in DEXTROSE 5%-WATER - 50 ML IVPB SCH (10:00)
[2021-01-12] MEDS ORDERED: PANTOPRAZOLE 40 MG TABLET PO SCH (10:00)
[2021-01-12] MEDS ORDERED: PIPERACILLIN/TAZOB 3.375 GM 3.375 GM in DEXTROSE 5%-WATER - 50 ML IVPB ONE (11:25)
[2021-01-12] MEDS ORDERED: PIPERACILLIN/TAZOBACTAM 3.375 GM VIAL IVPB ONE ×2 (13:15→16:42)
[2021-01-12] MEDS: PIPERACILLIN/TAZOB 3.375 GM 3.375 GM in DEXTROSE 5%-WATER - 50 ML IVPB SCH ×2 (13:33→18:36)
[2021-01-12] MEDS: ATORVASTATIN CA 20 MG TABLET (FP) PO SCH (21:02)
[2021-01-12] MEDS: LIDOCAINE PATCH REMOVAL MC SCH (21:02)
[2021-01-13] MEDS ORDERED: PIPERACILLIN/TAZOBACTAM 3.375 GM VIAL IVPB ONE ×3 (00:56→15:37)
[2021-01-13] MEDS ORDERED: DEXTROSE 5%-WATER - 50 ML IVPB ONE ×3 (00:56→15:38)
[2021-01-13] MEDS: ALPRAZolam 0.25 MG TABLET PO PRN ×3 (00:56→21:54)
[2021-01-13] MEDS: ACETAMINOPHEN 325 MG TABLET (FP) PO PRN ×3 (01:00→21:40)
[2021-01-13] MEDS: PIPERACILLIN/TAZOB 3.375 GM 3.375 GM in DEXTROSE 5%-WATER - 50 ML IVPB SCH ×2 (01:15→09:28)
[2021-01-13] MEDS: ONDANSETRON 4 MG TABLET PO PRN ×2 (06:00→21:38)
[2021-01-13] MEDS: DOCUSATE SODIUM 100 MG CAPSULE (FP) PO SCH ×2 (09:28→21:37)
[2021-01-13] MEDS: POTASSIUM CHLORIDE TABS 10 MEQ TABLET.ER (FP) PO SCH (09:28)
[2021-01-13] MEDS: CHOLECALCIFEROL (VIT D3) 1,000 UNIT (25 MCG) TABLET PO SCH (09:28)
[2021-01-13] MEDS: LIDOCAINE 5% TOPICAL PATCH TP SCH (09:28)
[2021-01-13] MEDS: VALSARTAN 80 MG TABLET PO SCH (09:28)
[2021-01-13] MEDS: NYSTATIN POWDER 100,000 UNITS/GM - 15 GM TOPICAL POWDER TP SCH ×2 (09:29→21:41)
[2021-01-13] MEDS: HEPARIN NA (PORCINE) 5,000 UNITS/ML 1ML VIAL SQ SCH ×2 (09:29→21:39)
[2021-01-13] MEDS: ATENOLOL 50 MG TABLET (FP) PO SCH (09:29)
[2021-01-13] MEDS: LACTOBACILLUS ACIDOPHILUS 1 TABLET PO SCH (09:29)
[2021-01-13] MEDS: SERTRALINE HCL 50 MG TABLET (FP) PO SCH (09:33)
[2021-01-13 09:43] LABS: BASO % 0.1 % (0-2.0); EOS % 0.2 % (0-4.5); HEMATOCRIT 31.9 % (32.4-45.2); HEMOGLOBIN 10.7 GM/dL (10.7-15.3); LYMPH % 11.7 % (8-40); MCH 31.1 pg (25.7-33.7); MCHC 33.6 g/dl (32.0-36.0); MEAN CELL VOLUME 92.6 fl (80-96); MEAN PLT VOLUME 7.9 fl (7.5-11.1); MONO % 6.2 % (3.8-10.2); NEUT % 81.8 % (42.8-82.8); PLATELET COUNT 446 10^3/uL (134-434); RBC 3.44 M/mm3 (3.60-5.2); WHITE BLOOD COUNT 12.4 K/mm3 (4.0-10.0)
[2021-01-13 10:02] LABS: ALBUMIN 1.9 g/dl (3.4-5.0); CALCIUM 7.9 mg/dL (8.5-10.1)
[2021-01-13 10:05] LABS: CREATININE 0.8 mg/dL (0.55-1.3)
[2021-01-13 10:06] LABS: BILIRUBIN,TOTAL 0.5 mg/dL (0.2-1); TOT PROT 5.4 g/dl (6.4-8.2)
[2021-01-13 10:55] LABS: INR 1.96 (0.83-1.09); PROTHROMBIN TIME (PATIENT) 23.2 SEC (9.7-13.0)
[2021-01-13] MEDS: SODIUM CHLORIDE 1,000 ML IV SCH ×2 (17:56→21:39)
[2021-01-13] MEDS: CEFAZOLIN 2 GM in DEXTROSE 5%-WATER - 100 ML IVPB SCH (17:58)
[2021-01-13] MEDS: MELATONIN 5 MG TABLETS PO PRN (21:38)
[2021-01-13] MEDS: ATORVASTATIN CA 20 MG TABLET (FP) PO SCH (21:38)
[2021-01-13] MEDS: LIDOCAINE PATCH REMOVAL MC SCH (21:41)
[2021-01-13] MEDS: TETRAHYDROZOLINE HCL EYE DROPS OU PRN (21:41)
[2021-01-14] MEDS: CEFAZOLIN 2 GM in DEXTROSE 5%-WATER - 100 ML IVPB SCH ×3 (01:00→17:06)
[2021-01-14] MEDS: ONDANSETRON 4 MG TABLET PO PRN ×2 (05:39→15:35)
[2021-01-14] MEDS: ALPRAZolam 0.25 MG TABLET PO PRN ×2 (06:00→15:37)
[2021-01-14 08:29] LABS: BASO % 0.3 % (0-2.0); EOS % 0.5 % (0-4.5); HEMATOCRIT 31.2 % (32.4-45.2); HEMOGLOBIN 10.7 GM/dL (10.7-15.3); LYMPH % 16.6 % (8-40); MCH 32.1 pg (25.7-33.7); MCHC 34.4 g/dl (32.0-36.0); MEAN CELL VOLUME 93.3 fl (80-96); MEAN PLT VOLUME 8.5 fl (7.5-11.1); MONO % 6.3 % (3.8-10.2); NEUT % 76.3 % (42.8-82.8); PLATELET COUNT 437 10^3/uL (134-434); RBC 3.35 M/mm3 (3.60-5.2); WHITE BLOOD COUNT 8.7 K/mm3 (4.0-10.0)
[2021-01-14 09:02] LABS: CALCIUM 7.4 mg/dL (8.5-10.1)
[2021-01-14 09:03] LABS: ALBUMIN 1.7 g/dl (3.4-5.0); BLOOD UREA NITROGEN 18.4 mg/dL (7-18)
[2021-01-14 09:06] LABS: CREATININE 0.7 mg/dL (0.55-1.3)
[2021-01-14 09:08] LABS: BILIRUBIN,TOTAL 0.4 mg/dL (0.2-1)
[2021-01-14] MEDS: CHOLECALCIFEROL (VIT D3) 1,000 UNIT (25 MCG) TABLET PO SCH (09:49)
[2021-01-14] MEDS: HEPARIN NA (PORCINE) 5,000 UNITS/ML 1ML VIAL SQ SCH ×2 (09:49→21:47)
[2021-01-14] MEDS: ATENOLOL 50 MG TABLET (FP) PO SCH (09:50)
[2021-01-14] MEDS: POTASSIUM CHLORIDE TABS 10 MEQ TABLET.ER (FP) PO SCH (09:50)
[2021-01-14] MEDS: LACTOBACILLUS ACIDOPHILUS 1 TABLET PO SCH (09:50)
[2021-01-14] MEDS: SERTRALINE HCL 50 MG TABLET (FP) PO SCH (09:50)
[2021-01-14] MEDS: VALSARTAN 80 MG TABLET PO SCH (09:50)
[2021-01-14] MEDS: LIDOCAINE 5% TOPICAL PATCH TP SCH (09:50)
[2021-01-14] MEDS: NYSTATIN POWDER 100,000 UNITS/GM - 15 GM TOPICAL POWDER TP SCH ×2 (09:50→21:49)
[2021-01-14] MEDS: DOCUSATE SODIUM 100 MG CAPSULE (FP) PO SCH ×2 (09:51→21:47)
[2021-01-14] MEDS ORDERED: PATIENT'S OWN MEDICATION (NON-FORMULARY) (Vit A/Vit C/Vit E/Zinc/Copper [Preservision Ared PO SCH (10:00)
[2021-01-14] MEDS ORDERED: oxyCODONE HCL 5 MG TABLET PO ONE (12:00)
[2021-01-14] MEDS: ACETAMINOPHEN 325 MG TABLET (FP) PO PRN (12:18)
[2021-01-14] MEDS: SODIUM CHLORIDE 1,000 ML IV SCH (12:19)
[2021-01-14] MEDS: LIDOCAINE PATCH REMOVAL MC SCH (21:46)
[2021-01-14] MEDS: ATORVASTATIN CA 20 MG TABLET (FP) PO SCH (21:48)
[2021-01-15] MEDS ORDERED: CEFAZOLIN 2 GM/D5W 2 GM/50 ML ML IVPB SCH (02:30)
[2021-01-15] MEDS: SODIUM CHLORIDE 1,000 ML IV SCH ×3 (02:32→17:06)
[2021-01-15] MEDS: MELATONIN 5 MG TABLETS PO PRN (02:33)
[2021-01-15] MEDS: ONDANSETRON 4 MG TABLET PO PRN ×2 (04:18→16:18)
[2021-01-15] MEDS: ALPRAZolam 0.25 MG TABLET PO PRN (04:55)
[2021-01-15 08:21] LABS: BASO % 0.3 % (0-2.0); EOS % 0.5 % (0-4.5); HEMATOCRIT 30.6 % (32.4-45.2); HEMOGLOBIN 10.6 GM/dL (10.7-15.3); LYMPH % 13.6 % (8-40); MCH 32.4 pg (25.7-33.7); MCHC 34.8 g/dl (32.0-36.0); MEAN CELL VOLUME 93.1 fl (80-96); MEAN PLT VOLUME 8.4 fl (7.5-11.1); NEUT % 80.6 % (42.8-82.8); PLATELET COUNT 423 10^3/uL (134-434); RBC 3.28 M/mm3 (3.60-5.2); RDW 13.7 % (11.6-15.6); WHITE BLOOD COUNT 9.6 K/mm3 (4.0-10.0)
[2021-01-15 08:30] LABS: ALBUMIN 1.8 g/dl (3.4-5.0); BLOOD UREA NITROGEN 12.6 mg/dL (7-18); CALCIUM 7.4 mg/dL (8.5-10.1)
[2021-01-15 08:33] LABS: CREATININE 0.5 mg/dL (0.55-1.3)
[2021-01-15 08:35] LABS: BILIRUBIN,TOTAL 0.4 mg/dL (0.2-1)
[2021-01-15] MEDS: CEFAZOLIN 2 GM in DEXTROSE 5%-WATER - 100 ML IVPB SCH ×3 (08:39→17:06)
[2021-01-15] MEDS: DOCUSATE SODIUM 100 MG CAPSULE (FP) PO SCH ×2 (09:49→22:01)
[2021-01-15] MEDS: SERTRALINE HCL 50 MG TABLET (FP) PO SCH (09:49)
[2021-01-15] MEDS: CHOLECALCIFEROL (VIT D3) 1,000 UNIT (25 MCG) TABLET PO SCH (09:49)
[2021-01-15] MEDS: NYSTATIN POWDER 100,000 UNITS/GM - 15 GM TOPICAL POWDER TP SCH ×2 (09:49→22:11)
[2021-01-15] MEDS: VALSARTAN 80 MG TABLET PO SCH (09:49)
[2021-01-15] MEDS: LACTOBACILLUS ACIDOPHILUS 1 TABLET PO SCH (09:49)
[2021-01-15] MEDS: LIDOCAINE 5% TOPICAL PATCH TP SCH (09:49)
[2021-01-15] MEDS: HEPARIN NA (PORCINE) 5,000 UNITS/ML 1ML VIAL SQ SCH ×2 (09:49→22:10)
[2021-01-15] MEDS: ATENOLOL 50 MG TABLET (FP) PO SCH (09:49)
[2021-01-15] MEDS: POTASSIUM CHLORIDE TABS 10 MEQ TABLET.ER (FP) PO SCH (09:49)
[2021-01-15] MEDS: ACETAMINOPHEN 325 MG TABLET (FP) PO PRN (09:50)
[2021-01-15] MEDS ORDERED: MIRTAZAPINE 15 MG TABLET (FP) PO PRN (09:53)
[2021-01-15] MEDS: SERTRALINE HCL 25 MG TABLET (FP) PO SCH (11:22)
[2021-01-15] MEDS ORDERED: metroNIDAZOLE 250 MG TABLET PO SCH (14:00)
[2021-01-15] MEDS: VANCOMYCIN 250 MG/5 ML ORAL SOLUTION PO SCH (17:57)
[2021-01-15] MEDS: ATORVASTATIN CA 20 MG TABLET (FP) PO SCH (22:03)
[2021-01-15] MEDS: LIDOCAINE PATCH REMOVAL MC SCH (22:10)
[2021-01-16] MEDS: VANCOMYCIN 250 MG/5 ML ORAL SOLUTION PO SCH ×5 (00:10→23:04)
[2021-01-16] MEDS: CEFAZOLIN 2 GM in DEXTROSE 5%-WATER - 100 ML IVPB SCH ×3 (01:49→17:12)
[2021-01-16] MEDS: ALPRAZolam 0.25 MG TABLET PO PRN ×2 (08:04→21:29)
[2021-01-16] MEDS: HEPARIN NA (PORCINE) 5,000 UNITS/ML 1ML VIAL SQ SCH ×2 (10:44→21:28)
[2021-01-16] MEDS: LACTOBACILLUS ACIDOPHILUS 1 TABLET PO SCH (10:44)
[2021-01-16] MEDS: SERTRALINE HCL 50 MG TABLET (FP) PO SCH (10:44)
[2021-01-16] MEDS: LIDOCAINE 5% TOPICAL PATCH TP SCH (10:45)
[2021-01-16] MEDS: ATENOLOL 50 MG TABLET (FP) PO SCH (10:45)
[2021-01-16] MEDS: CHOLECALCIFEROL (VIT D3) 1,000 UNIT (25 MCG) TABLET PO SCH (10:45)
[2021-01-16] MEDS: DOCUSATE SODIUM 100 MG CAPSULE (FP) PO SCH ×2 (10:45→21:29)
[2021-01-16] MEDS: NYSTATIN POWDER 100,000 UNITS/GM - 15 GM TOPICAL POWDER TP SCH ×2 (10:45→21:30)
[2021-01-16] MEDS: VALSARTAN 80 MG TABLET PO SCH (10:45)
[2021-01-16] MEDS: POTASSIUM CHLORIDE TABS 10 MEQ TABLET.ER (FP) PO SCH (10:45)
[2021-01-16] MEDS: SERTRALINE HCL 25 MG TABLET (FP) PO SCH (10:47)
[2021-01-16] MEDS: SODIUM CHLORIDE 1,000 ML IV SCH (17:12)
[2021-01-16] MEDS: ACETAMINOPHEN 325 MG TABLET (FP) PO PRN (18:25)
[2021-01-16] MEDS: MIRTAZAPINE 15 MG TABLET (FP) PO SCH (21:29)
[2021-01-16] MEDS: ATORVASTATIN CA 20 MG TABLET (FP) PO SCH (21:29)
[2021-01-16] MEDS: MELATONIN 5 MG TABLETS PO PRN (21:30)
[2021-01-16] MEDS: LIDOCAINE PATCH REMOVAL MC SCH (21:30)
[2021-01-17] MEDS: CEFAZOLIN 2 GM in DEXTROSE 5%-WATER - 100 ML IVPB SCH ×3 (01:07→17:14)
[2021-01-17] MEDS: VANCOMYCIN 250 MG/5 ML ORAL SOLUTION PO SCH ×3 (05:38→17:13)
[2021-01-17] MEDS: ALPRAZolam 0.25 MG TABLET PO PRN ×2 (07:00→23:33)
[2021-01-17 07:33] LABS: BASO % 0.3 % (0-2.0); EOS % 0.9 % (0-4.5); HEMATOCRIT 29.2 % (32.4-45.2); HEMOGLOBIN 10.1 GM/dL (10.7-15.3); LYMPH % 17.3 % (8-40); MCH 31.5 pg (25.7-33.7); MCHC 34.6 g/dl (32.0-36.0); MEAN PLT VOLUME 7.7 fl (7.5-11.1); MONO % 8.5 % (3.8-10.2); PLATELET COUNT 468 10^3/uL (134-434); RBC 3.21 M/mm3 (3.60-5.2); RDW 13.5 % (11.6-15.6); WHITE BLOOD COUNT 7.2 K/mm3 (4.0-10.0)
[2021-01-17 07:44] LABS: CALCIUM 7.4 mg/dL (8.5-10.1)
[2021-01-17 07:45] LABS: BLOOD UREA NITROGEN 6.3 mg/dL (7-18)
[2021-01-17 07:48] LABS: CREATININE 0.5 mg/dL (0.55-1.3)
[2021-01-17 07:49] LABS: BILIRUBIN,TOTAL 0.2 mg/dL (0.2-1); TOT PROT 4.6 g/dl (6.4-8.2)
[2021-01-17] MEDS: ONDANSETRON 4 MG TABLET PO PRN (08:06)
[2021-01-17] MEDS: ATENOLOL 50 MG TABLET (FP) PO SCH (10:02)
[2021-01-17] MEDS: CHOLECALCIFEROL (VIT D3) 1,000 UNIT (25 MCG) TABLET PO SCH (10:03)
[2021-01-17] MEDS: LACTOBACILLUS ACIDOPHILUS 1 TABLET PO SCH (10:03)
[2021-01-17] MEDS: SERTRALINE HCL 50 MG TABLET (FP) PO SCH (10:03)
[2021-01-17] MEDS: VALSARTAN 80 MG TABLET PO SCH (10:03)
[2021-01-17] MEDS: DOCUSATE SODIUM 100 MG CAPSULE (FP) PO SCH ×2 (10:03→22:52)
[2021-01-17] MEDS: POTASSIUM CHLORIDE TABS 10 MEQ TABLET.ER (FP) PO SCH (10:03)
[2021-01-17] MEDS: LIDOCAINE 5% TOPICAL PATCH TP SCH (10:03)
[2021-01-17] MEDS: ACETAMINOPHEN 325 MG TABLET (FP) PO PRN (10:04)
[2021-01-17] MEDS: NYSTATIN POWDER 100,000 UNITS/GM - 15 GM TOPICAL POWDER TP SCH ×2 (10:05→22:53)
[2021-01-17] MEDS: HEPARIN NA (PORCINE) 5,000 UNITS/ML 1ML VIAL SQ SCH ×2 (10:05→22:51)
[2021-01-17] MEDS: TETRAHYDROZOLINE HCL EYE DROPS OU PRN ×2 (10:10→22:56)
[2021-01-17] MEDS: SODIUM CHLORIDE 1,000 ML IV SCH (15:55)
[2021-01-17 16:46] VITALS: BMI 23.9
[2021-01-17] MEDS: ATORVASTATIN CA 20 MG TABLET (FP) PO SCH (22:52)
[2021-01-17] MEDS: MIRTAZAPINE 15 MG TABLET (FP) PO SCH (22:52)
[2021-01-17] MEDS: LIDOCAINE PATCH REMOVAL MC SCH (22:55)
[2021-01-18] MEDS: VANCOMYCIN 250 MG/5 ML ORAL SOLUTION PO SCH ×4 (00:35→17:24)
[2021-01-18] MEDS: CEFAZOLIN 2 GM in DEXTROSE 5%-WATER - 100 ML IVPB SCH ×3 (01:26→17:25)
[2021-01-18] MEDS: SODIUM CHLORIDE 1,000 ML IV SCH ×2 (06:45→17:21)
[2021-01-18] MEDS: ALPRAZolam 0.25 MG TABLET PO PRN ×2 (08:23→22:11)
[2021-01-18] MEDS: POTASSIUM CHLORIDE TABS 10 MEQ TABLET.ER (FP) PO SCH (09:43)
[2021-01-18] MEDS: HEPARIN NA (PORCINE) 5,000 UNITS/ML 1ML VIAL SQ SCH ×2 (09:43→22:11)
[2021-01-18] MEDS: VALSARTAN 80 MG TABLET PO SCH (09:44)
[2021-01-18] MEDS: LACTOBACILLUS ACIDOPHILUS 1 TABLET PO SCH (09:44)
[2021-01-18] MEDS: SERTRALINE HCL 50 MG TABLET (FP) PO SCH (09:44)
[2021-01-18] MEDS: ATENOLOL 50 MG TABLET (FP) PO SCH (09:44)
[2021-01-18] MEDS: CHOLECALCIFEROL (VIT D3) 1,000 UNIT (25 MCG) TABLET PO SCH (09:44)
[2021-01-18] MEDS: LIDOCAINE 5% TOPICAL PATCH TP SCH (09:44)
[2021-01-18] MEDS: DOCUSATE SODIUM 100 MG CAPSULE (FP) PO SCH ×2 (09:45→22:11)
[2021-01-18] MEDS: NYSTATIN POWDER 100,000 UNITS/GM - 15 GM TOPICAL POWDER TP SCH ×2 (09:46→22:11)
[2021-01-18] MEDS: TETRAHYDROZOLINE HCL EYE DROPS OU PRN (13:31)
[2021-01-18] MEDS: ACETAMINOPHEN 325 MG TABLET (FP) PO PRN ×2 (13:35→22:12)
[2021-01-18] MEDS: MELATONIN 5 MG TABLETS PO PRN (22:11)
[2021-01-18] MEDS: ATORVASTATIN CA 20 MG TABLET (FP) PO SCH (22:11)
[2021-01-18] MEDS: MIRTAZAPINE 15 MG TABLET (FP) PO SCH (22:11)
[2021-01-18] MEDS: LIDOCAINE PATCH REMOVAL MC SCH (22:12)
[2021-01-19] MEDS: VANCOMYCIN 250 MG/5 ML ORAL SOLUTION PO SCH ×5 (01:02→23:01)
[2021-01-19] MEDS: CEFAZOLIN 2 GM in DEXTROSE 5%-WATER - 100 ML IVPB SCH ×3 (01:02→17:21)
[2021-01-19] MEDS: LACTOBACILLUS ACIDOPHILUS 1 TABLET PO SCH (09:48)
[2021-01-19] MEDS: CHOLECALCIFEROL (VIT D3) 1,000 UNIT (25 MCG) TABLET PO SCH (09:49)
[2021-01-19] MEDS: VALSARTAN 80 MG TABLET PO SCH (09:49)
[2021-01-19] MEDS: HEPARIN NA (PORCINE) 5,000 UNITS/ML 1ML VIAL SQ SCH ×2 (09:49→21:04)
[2021-01-19] MEDS: LIDOCAINE 5% TOPICAL PATCH TP SCH (09:49)
[2021-01-19] MEDS: DOCUSATE SODIUM 100 MG CAPSULE (FP) PO SCH ×2 (09:49→21:05)
[2021-01-19] MEDS: POTASSIUM CHLORIDE TABS 10 MEQ TABLET.ER (FP) PO SCH (09:49)
[2021-01-19] MEDS: ATENOLOL 50 MG TABLET (FP) PO SCH (09:49)
[2021-01-19] MEDS: NYSTATIN POWDER 100,000 UNITS/GM - 15 GM TOPICAL POWDER TP SCH ×2 (09:50→21:05)
[2021-01-19] MEDS: SERTRALINE HCL 50 MG TABLET (FP) PO SCH (09:50)
[2021-01-19] MEDS: ALPRAZolam 0.25 MG TABLET PO PRN ×2 (09:50→21:04)
[2021-01-19] MEDS: TETRAHYDROZOLINE HCL EYE DROPS OU PRN ×2 (09:58→21:05)
[2021-01-19] MEDS: ACETAMINOPHEN 325 MG TABLET (FP) PO PRN ×2 (09:58→21:05)
[2021-01-19] MEDS: SODIUM CHLORIDE 1,000 ML IV SCH ×2 (12:17→17:21)
[2021-01-19] MEDS ORDERED: PT OWN MED DRAWER 7, Y5N ONE (12:36)
[2021-01-19] MEDS: MIRTAZAPINE 15 MG TABLET (FP) PO SCH (21:04)
[2021-01-19] MEDS: ATORVASTATIN CA 20 MG TABLET (FP) PO SCH (21:04)
[2021-01-19] MEDS: LIDOCAINE PATCH REMOVAL MC SCH (21:04)
[2021-01-20] MEDS: CEFAZOLIN 2 GM in DEXTROSE 5%-WATER - 100 ML IVPB SCH ×3 (01:45→17:03)
[2021-01-20] MEDS: SODIUM CHLORIDE 1,000 ML IV SCH ×2 (02:45→17:01)
[2021-01-20] MEDS: VANCOMYCIN 250 MG/5 ML ORAL SOLUTION PO SCH ×4 (06:09→23:33)
[2021-01-20] MEDS: ALPRAZolam 0.25 MG TABLET PO PRN ×2 (06:18→16:42)
[2021-01-20] MEDS: ACETAMINOPHEN 325 MG TABLET (FP) PO PRN ×2 (08:42→21:50)
[2021-01-20] MEDS ORDERED: PT OWN MED DRAWER 7, Y5N ONE (11:54)
[2021-01-20] MEDS: VALSARTAN 80 MG TABLET PO SCH (11:58)
[2021-01-20] MEDS: ATENOLOL 50 MG TABLET (FP) PO SCH (11:59)
[2021-01-20] MEDS: CHOLECALCIFEROL (VIT D3) 1,000 UNIT (25 MCG) TABLET PO SCH (11:59)
[2021-01-20] MEDS: DOCUSATE SODIUM 100 MG CAPSULE (FP) PO SCH ×2 (11:59→21:49)
[2021-01-20] MEDS: LACTOBACILLUS ACIDOPHILUS 1 TABLET PO SCH (12:01)
[2021-01-20] MEDS: SERTRALINE HCL 50 MG TABLET (FP) PO SCH (12:02)
[2021-01-20] MEDS: POTASSIUM CHLORIDE TABS 10 MEQ TABLET.ER (FP) PO SCH (12:05)
[2021-01-20] MEDS: LIDOCAINE 5% TOPICAL PATCH TP SCH (12:06)
[2021-01-20] MEDS: HEPARIN NA (PORCINE) 5,000 UNITS/ML 1ML VIAL SQ SCH ×2 (12:07→21:47)
[2021-01-20] MEDS: NYSTATIN POWDER 100,000 UNITS/GM - 15 GM TOPICAL POWDER TP SCH ×2 (12:08→21:52)
[2021-01-20] MEDS ORDERED: amLODIPine BESYLATE 5 MG TABLET (FP) PO ONE ×2 (16:45→18:45)
[2021-01-20] MEDS: ATORVASTATIN CA 20 MG TABLET (FP) PO SCH (21:49)
[2021-01-20] MEDS: LIDOCAINE PATCH REMOVAL MC SCH (21:49)
[2021-01-20] MEDS: MIRTAZAPINE 15 MG TABLET (FP) PO SCH (21:49)
[2021-01-20] MEDS: MELATONIN 5 MG TABLETS PO PRN (21:51)
[2021-01-21] MEDS: CEFAZOLIN 2 GM in DEXTROSE 5%-WATER - 100 ML IVPB SCH ×3 (01:35→09:06)
[2021-01-21] MEDS: VANCOMYCIN 250 MG/5 ML ORAL SOLUTION PO SCH ×2 (06:09→13:19)
[2021-01-21] MEDS: POTASSIUM CHLORIDE TABS 10 MEQ TABLET.ER (FP) PO SCH (09:17)
[2021-01-21] MEDS: SERTRALINE HCL 50 MG TABLET (FP) PO SCH (09:17)
[2021-01-21] MEDS: ATENOLOL 50 MG TABLET (FP) PO SCH (09:17)
[2021-01-21] MEDS: HEPARIN NA (PORCINE) 5,000 UNITS/ML 1ML VIAL SQ SCH (09:17)
[2021-01-21] MEDS: ALPRAZolam 0.25 MG TABLET PO PRN (09:17)
[2021-01-21] MEDS: ACETAMINOPHEN 325 MG TABLET (FP) PO PRN (09:17)
[2021-01-21] MEDS: VALSARTAN 80 MG TABLET PO SCH (09:18)
[2021-01-21] MEDS: CHOLECALCIFEROL (VIT D3) 1,000 UNIT (25 MCG) TABLET PO SCH (09:18)
[2021-01-21] MEDS: LIDOCAINE 5% TOPICAL PATCH TP SCH (09:19)
[2021-01-21] MEDS: NYSTATIN POWDER 100,000 UNITS/GM - 15 GM TOPICAL POWDER TP SCH (09:19)
[2021-01-21] MEDS: LACTOBACILLUS ACIDOPHILUS 1 TABLET PO SCH (09:19)
[2021-01-21] MEDS: DOCUSATE SODIUM 100 MG CAPSULE (FP) PO SCH (09:19)
[2021-01-21 09:54] VITALS: BP 156/78; PULSE 77; TEMP 98
== END 2021-01-21 15:47 | disposition home health service (06) | DRG 872 ==
LOC: JER 03:13 → JERBED 12:14 → J7W 21:45
PROVIDERS: ADMIT Internal Medicine; ATTEND Internal Medicine
DX: A41.51 Sepsis due to Escherichia coli [E. coli] (principal); N10 Acute pyelonephritis; K57.92 Diverticulitis of intestine, part unspecified, without perforation or abscess without bleeding; C34.90 Malignant neoplasm of unspecified part of unspecified bronchus or lung; A04.72 Enterocolitis due to Clostridium difficile, not specified as recurrent; N17.9 Acute kidney failure, unspecified; I10 Essential (primary) hypertension; E78.5 Hyperlipidemia, unspecified; I50.9 Heart failure, unspecified; I11.0 Hypertensive heart disease with heart failure; E86.0 Dehydration; I25.10 Atherosclerotic heart disease of native coronary artery without angina pectoris; F41.8 Other specified anxiety disorders; M54.30 Sciatica, unspecified side; D72.829 Elevated white blood cell count, unspecified
CPT/HCPCS: 36415; 71045-TC-FY; 74177-TC; 74181-TC; 80053; 81003; 82550; 83605; 83690; 83735; 84484; 85025; 85610; 85730; 87040; 87086; 87186; 87324; 87449; 93005; 93010; 97116-GP; 97161-GP; 99285-25; C9803; J0131; J1644; U0003; U0005

== ENCOUNTER 2021-11-20 11:31 | Emergency (ER) | payer OTHER ==
[2021-11-20 12:40] VITALS: BP 166/80; PULSE 79; TEMP 97.9; BMI 26.5
[2021-11-20] MEDS ORDERED: MAG HYDROX/AL HYDROX/SIMETH -MYLANTA- ORAL SUSPENSION PO ONE ×2 (14:23→19:11)
[2021-11-20] MEDS ORDERED: FAMOTIDINE 20 MG/50 ML IVPB 20 MG/50 ML MG IVPB ONE ×2 (14:23→15:03)
[2021-11-20] MEDS ORDERED: SODIUM CHLORIDE 0.9% 500 ML INFUS.BAG IV ONE (14:24)
[2021-11-20] MEDS ORDERED: MAG HYDROX/AL HYDROX/SIMETH 30 ML UNIT-DOSE CUP ONE ×2 (15:03→19:11)
[2021-11-20 15:44] LABS: BASO % 0.4 % (0-2.0); EOS % 0.3 % (0-4.5); HEMATOCRIT 38.7 % (32.4-45.2); HEMOGLOBIN 13.3 GM/dL (10.7-15.3); MCH 31.9 pg (25.7-33.7); MCHC 34.4 g/dl (32.0-36.0); MEAN CELL VOLUME 92.7 fl (80-96); MEAN PLT VOLUME 7.4 fl (7.5-11.1); MONO % 12.3 % (3.8-10.2); PLATELET COUNT 405 10^3/uL (134-434); RBC 4.17 M/mm3 (3.60-5.2); RDW 13.6 % (11.6-15.6); WHITE BLOOD COUNT 6.9 K/mm3 (4.0-10.0)
[2021-11-20 15:51] LABS: INR 1.2 (0.83-1.09); PROTHROMBIN TIME (PATIENT) 13.8 SEC (9.7-13.0)
[2021-11-20 15:54] LABS: ACTIVATED PTT 25.7 SECONDS (25.2-36.5)
[2021-11-20 16:13] LABS: CALCIUM 9.6 mg/dL (8.5-10.1)
[2021-11-20 16:17] LABS: CREATININE 0.9 mg/dL (0.55-1.3)
[2021-11-20 16:18] LABS: BILIRUBIN,TOTAL 0.5 mg/dL (0.2-1); TOT PROT 7.8 g/dl (6.4-8.2)
[2021-11-20 16:37] LABS: EPI CELLS 22 /uL (0-25.1); HYALINE CASTS 9 /uL (0-3.1); PH,URINE 5.5 (5.0-8.0); URINE APPEARANCE CLEAR; URINE BACTERIA 37 /uL (0-1359); URINE BILIRUBIN NEGATIVE (NEGATIVE); URINE COLOR YELLOW; URINE GLUCOSE (UA) NEGATIVE (NEGATIVE); URINE KETONE 3+ (NEGATIVE); URINE LEUK ESTERASE 1+ (NEGATIVE); URINE NITRITE NEGATIVE (NEGATIVE); URINE PROTEIN TRACE (NEGATIVE); URINE RBC 15 /uL (0-23.9); URINE WBC 37 /uL (0-25.8)
[2021-11-20] MEDS ORDERED: PANTOPRAZOLE SODIUM 40 MG VIAL IVPUSH ONE (17:11)
[2021-11-20] MEDS ORDERED: PANTOPRAZOLE SODIUM 40 MG/100 ML BAG IVPB ONE (17:21)
== END 2021-11-20 19:21 | disposition home or self-care (01) ==
LOC: JER 11:31
PROC: 3E033GC Introduction of Other Therapeutic Substance into Peripheral Vein, Percutaneous Approach (ICD-10-PCS; principal; 2021-11-20)
DX: K21.00 Gastro-esophageal reflux disease with esophagitis, without bleeding (principal)
CPT/HCPCS: 36415; 80053; 81003; 83690; 84484; 85025; 85610; 85730; 87086; 87186; 93005; 93010; 96365; 96375; 99284-25

== ENCOUNTER 2021-11-29 14:02 | Observation (INO) | payer OTHER ==
[2021-11-29] MEDS ORDERED: FAMOTIDINE 20 MG/50 ML IVPB 20 MG/50 ML MG IVPB ONE ×2 (16:40→17:47)
[2021-11-29] MEDS ORDERED: ONDANSETRON 4 MG/2 ML VIAL IVPUSH ONE (16:40)
[2021-11-29] MEDS ORDERED: SODIUM CHLORIDE 1,000 ML IV STA (16:40)
[2021-11-29] MEDS ORDERED: PANTOPRAZOLE SODIUM 40 MG VIAL IVPB ONE (16:40)
[2021-11-29] MEDS ORDERED: MAG HYDROX/AL HYDROX/SIMETH 30 ML UNIT-DOSE CUP PO ONE (16:41)
[2021-11-29] MEDS ORDERED: PANTOPRAZOLE SODIUM 40 MG/100 ML BAG IVPB ONE (17:47)
[2021-11-29] MEDS ORDERED: ONDANSETRON 4 MG/2 ML VIAL ONE (17:47)
[2021-11-29 18:41] LABS: BASO % 0.3 % (0-2.0); EOS % 0.4 % (0-4.5); HEMATOCRIT 39.2 % (32.4-45.2); HEMOGLOBIN 13.4 GM/dL (10.7-15.3); LYMPH % 32.4 % (8-40); MCH 31.9 pg (25.7-33.7); MCHC 34.3 g/dl (32.0-36.0); MEAN PLT VOLUME 6.8 fl (7.5-11.1); MONO % 10.2 % (3.8-10.2); NEUT % 56.7 % (42.8-82.8); PLATELET COUNT 353 10^3/uL (134-434); RBC 4.22 M/mm3 (3.60-5.2); RDW 13.4 % (11.6-15.6); WHITE BLOOD COUNT 7.2 K/mm3 (4.0-10.0)
[2021-11-29] MEDS ORDERED: ASPIRIN 81 MG CHEWABLE TABLETS PO ONE (19:01)
[2021-11-29 19:02] LABS: CHLORIDE 95 mmol/L (98-107); SODIUM 127 mmol/L (136-145)
[2021-11-29 19:05] LABS: CALCIUM 9.4 mg/dL (8.5-10.1)
[2021-11-29 19:06] LABS: ALBUMIN 3.7 g/dl (3.4-5.0); BLOOD UREA NITROGEN 17.9 mg/dL (7-18); CO2 23 mmol/L (21-32); GLUCOSE,RANDOM 86 mg/dL (74-106); LIPASE 150 U/L (73-393)
[2021-11-29 19:09] LABS: CREATININE 0.9 mg/dL (0.55-1.3); SGOT/AST 63 U/L (15-37); SGPT/ALT 20 U/L (13-61)
[2021-11-29 19:10] LABS: BILIRUBIN,TOTAL 0.8 mg/dL (0.2-1); TOT PROT 7.5 g/dl (6.4-8.2)
[2021-11-29] MEDS ORDERED: ASPIRIN 81 MG CHEWABLE TABLETS ONE (19:10)
[2021-11-29 19:11] LABS: ALK PHOS 71 U/L (45-117)
[2021-11-29 19:17] LABS: ANION GAP 9 MMOL/L (8-16)
[2021-11-29 20:22] LABS: BLOOD UREA NITROGEN 16.5 mg/dL (7-18); CALCIUM 8.7 mg/dL (8.5-10.1)
[2021-11-29 20:23] LABS: ALBUMIN 3.6 g/dl (3.4-5.0)
[2021-11-29 20:26] LABS: CREATININE 0.7 mg/dL (0.55-1.3)
[2021-11-29 20:27] LABS: BILIRUBIN,TOTAL 0.7 mg/dL (0.2-1); TOT PROT 6.7 g/dl (6.4-8.2)
[2021-11-29 21:37] LABS: EPI CELLS 6 /uL (0-25.1); HYALINE CASTS 1 /uL (0-3.1); PH,URINE 5.5 (5.0-8.0); URINE APPEARANCE CLEAR; URINE BACTERIA 80 /uL (0-1359); URINE BILIRUBIN NEGATIVE (NEGATIVE); URINE COLOR YELLOW; URINE GLUCOSE (UA) NEGATIVE (NEGATIVE); URINE KETONE 1+ (NEGATIVE); URINE LEUK ESTERASE TRACE (NEGATIVE); URINE NITRITE NEGATIVE (NEGATIVE); URINE PROTEIN NEGATIVE (NEGATIVE); URINE RBC 4 /uL (0-23.9); URINE UROBILINOGEN 0.2 mg/dL (0.2-1.0); URINE WBC 24 /uL (0-25.8)
[2021-11-29] MEDS ORDERED: MELATONIN 5 MG TABLETS PO PRN (22:03)
[2021-11-29 23:28] VITALS: BMI 26.9
[2021-11-30] MEDS: HEPARIN NA (PORCINE) 5,000 UNITS/ML 1ML VIAL SQ SCH ×2 (09:48→21:38)
[2021-11-30] MEDS: SERTRALINE HCL 50 MG TABLET (FP) PO SCH (09:48)
[2021-11-30] MEDS: LACTOBACILLUS ACIDOPHILUS 1 TABLET PO SCH (09:48)
[2021-11-30] MEDS: PANTOPRAZOLE 40 MG TABLET PO SCH (09:49)
[2021-11-30] MEDS: VALSARTAN 80 MG TABLET PO SCH (09:49)
[2021-11-30] MEDS: ACETAMINOPHEN 325 MG TABLET (FP) PO PRN ×2 (09:49→20:28)
[2021-11-30] MEDS: CHOLECALCIFEROL (VIT D3) 1,000 UNIT (25 MCG) TABLET PO SCH (09:49)
[2021-11-30] MEDS: amLODIPine BESYLATE 10 MG TABLET (FP) PO SCH (09:50)
[2021-11-30] MEDS ORDERED: DOCUSATE SODIUM 100 MG CAPSULE (FP) PO SCH (10:00)
[2021-11-30] MEDS ORDERED: POTASSIUM CHLORIDE 10 MEQ PO SCH (10:00)
[2021-11-30] MEDS ORDERED: PATIENT'S OWN MEDICATION (NON-FORMULARY) (Vit A/Vit C/Vit E/Zinc/Copper [Preservision Ared PO SCH (10:00)
[2021-11-30] MEDS ORDERED: PATIENT'S OWN MEDICATION (NON-FORMULARY) (Omeprazole 20 MG Capsule.Dr) PO SCH (10:00)
[2021-11-30] MEDS: TETRAHYDROZOLINE HCL EYE DROPS OU SCH (10:09)
[2021-11-30] MEDS ORDERED: MAG HYDROX/AL HYDROX/SIMETH 30 ML UNIT-DOSE CUP PO PRN (11:43)
[2021-11-30] MEDS: ATENOLOL 50 MG TABLET (FP) PO SCH (17:09)
[2021-11-30] MEDS: BUDESONIDE/FORMETEROL FUMARATE 160/4.5 mcg INHALER IH SCH ×2 (17:09→21:38)
[2021-11-30] MEDS ORDERED: MIRTAZAPINE 15 MG TABLET (FP) PO SCH (22:00)
[2021-11-30] MEDS ORDERED: PATIENT'S OWN MEDICATION (NON-FORMULARY) (Vit C/E/Zn/Coppr/Lutein/Zeaxan [Preservision Are PO SCH (22:00)
[2021-12-01] MEDS: SERTRALINE HCL 50 MG TABLET (FP) PO SCH (09:00)
[2021-12-01] MEDS: ATENOLOL 50 MG TABLET (FP) PO SCH (09:00)
[2021-12-01] MEDS: CHOLECALCIFEROL (VIT D3) 1,000 UNIT (25 MCG) TABLET PO SCH (09:00)
[2021-12-01] MEDS: amLODIPine BESYLATE 10 MG TABLET (FP) PO SCH (09:01)
[2021-12-01] MEDS: PANTOPRAZOLE 40 MG TABLET PO SCH (09:01)
[2021-12-01] MEDS: BUDESONIDE/FORMETEROL FUMARATE 160/4.5 mcg INHALER IH SCH (09:01)
[2021-12-01] MEDS: TETRAHYDROZOLINE HCL EYE DROPS OU SCH (09:01)
[2021-12-01] MEDS: VALSARTAN 80 MG TABLET PO SCH (09:01)
[2021-12-01] MEDS: LACTOBACILLUS ACIDOPHILUS 1 TABLET PO SCH (09:01)
[2021-12-01] MEDS: ACETAMINOPHEN 325 MG TABLET (FP) PO PRN ×2 (09:05→15:07)
[2021-12-01] MEDS ORDERED: POLYETHYLENE GLYCOL (HEALTHYLAX) 3350 17 GM PACKET PO SCH (10:00)
[2021-12-01] MEDS ORDERED: ALPRAZolam 0.25 MG TABLET PO PRN (10:55)
[2021-12-01 15:49] VITALS: BP 137/65; PULSE 69; TEMP 97.8
[2021-12-01] MEDS ORDERED: PANTOPRAZOLE 40 MG TABLET PO SCH (22:00)
== END 2021-12-01 18:25 | disposition home or self-care (01) ==
LOC: JER 14:02 → JERBED 18:48 → J4S 23:57
PROVIDERS: ADMIT Internal Medicine; ATTEND Internal Medicine
PROC: 3E033GC Introduction of Other Therapeutic Substance into Peripheral Vein, Percutaneous Approach (ICD-10-PCS; principal; 2021-11-29)
PROC: 3E023GC Introduction of Other Therapeutic Substance into Muscle, Percutaneous Approach (ICD-10-PCS; 2021-11-29)
PROC: 3E0337Z Introduction of Electrolytic and Water Balance Substance into Peripheral Vein, Percutaneous Approach (ICD-10-PCS; 2021-11-29)
DX: K21.9 Gastro-esophageal reflux disease without esophagitis (principal); K27.9 Peptic ulcer, site unspecified, unspecified as acute or chronic, without hemorrhage or perforation; K29.70 Gastritis, unspecified, without bleeding; I10 Essential (primary) hypertension; J44.9 Chronic obstructive pulmonary disease, unspecified; E78.5 Hyperlipidemia, unspecified; K44.9 Diaphragmatic hernia without obstruction or gangrene; F41.8 Other specified anxiety disorders; R12 Heartburn; R63.0 Anorexia; G89.29 Other chronic pain; R11.2 Nausea with vomiting, unspecified; K22.70 Barrett's esophagus without dysplasia; N39.0 Urinary tract infection, site not specified; Z87.891 Personal history of nicotine dependence; Z85.118 Personal history of other malignant neoplasm of bronchus and lung
CPT/HCPCS: 36415; 71046-TC-FY; 74177-TC; 76705-TC; 80053; 81003; 82550; 83690; 83735; 84484; 85025; 87081; 88305-TC; 88342-TC; 93005; 93010; 96361; 96365; 96372; 96375; 99285-25; C9803-CS; G0378; J1644; Q9967; U0003; U0005

== ENCOUNTER 2022-05-03 04:11 | Day surgery (SDC) | payer OTHER ==
[2022-05-02 09:44] VITALS: BMI 29.0
[2022-05-03 09:14] VITALS: TEMP 98
[2022-05-03 09:37] VITALS: BP 151/69; PULSE 75; RESP 15
== END 2022-05-03 10:41 | disposition home or self-care (01) ==
LOC: JASU-ENDO 04:11
PROVIDERS: ATTEND Internal Medicine Gastroenterology
PROC: 0DB48ZX Excision of Esophagogastric Junction, Via Natural or Artificial Opening Endoscopic, Diagnostic (ICD-10-PCS; principal; 2022-05-03 08:30)
DX: K22.70 Barrett's esophagus without dysplasia (principal); K44.9 Diaphragmatic hernia without obstruction or gangrene; Z87.19 Personal history of other diseases of the digestive system
CPT/HCPCS: 88305-TC